=== PATIENT | female | born 1990 | race Caucasian/White ===

== ENCOUNTER 2018-03-16 20:26 | Emergency (ER) | payer OTHER ==
[~2018-03-16] VITALS: Ht 172.7 cm; Wt 124.7 kg
[2018-03-16] MEDS ORDERED: LACTATED RINGERS 1,000 ML IV ONE (20:46)
[2018-03-16] MEDS ORDERED: ONDANSETRON 4 MG/2 ML (SDV) Z0FRAN IVP ONE (21:00)
[2018-03-16] MEDS ORDERED: HYOSCYAMINE 0.125 MG (LEVSIN) TAB PO ONE (21:00)
[2018-03-16 21:14] LABS: BILIRUBIN,URINE NEGATIVE (NEGATIVE); CLARITY,URINE CLEAR; COLOR,URINE YELLOW; GLUCOSE, URINE (UA) NEGATIVE (NEGATIVE); KETONES,URINE 1+ (NEGATIVE); LEUKOCYTE ESTERASE ,URINE 1+ (NEGATIVE); NITRITE,URINE NEGATIVE (NEGATIVE); PH,URINE 5 (5-9); PROTEIN,URINE 1+ (NEGATIVE); UROBILINOGEN,URINE NORMAL (NORMAL)
[2018-03-16 21:20] LABS: BASOPHILS % (AUTO) 0 % (0-10); EOSINOPHILS # (AUTO) 0.1 10^3/uL (0.0-0.3); EOSINOPHILS % (AUTO) 1 % (0-10); HEMATOCRIT 39 % (35-52); HEMOGLOBIN 13.3 G/DL (11.5-16.0); LYMPHOCYTES # (AUTO) 3.2 X 10^3 (1.0-4.0); LYMPHOCYTES % (AUTO) 38 % (12-44); MEAN CORPUSCULAR HEMOGLOBIN 31 PG (25-34); MEAN CORPUSCULAR HGB CONC 34 G/DL (32-36); MEAN CORPUSCULAR VOLUME 92 FL (80-99); MEAN PLATELET VOLUME 10.2 FL (7.4-10.4); MONOCYTES # (AUTO) 0.6 X 10^3 (0.0-1.0); MONOCYTES % (AUTO) 7 % (0-12); NEUTROPHILS # (AUTO) 4.4 X 10^3 (1.8-7.8); NEUTROPHILS % (AUTO) 53 % (42-75); PLATELET COUNT 317 10^3/uL (130-400); RED BLOOD COUNT 4.23 10^6/uL (4.35-5.85); RED CELL DISTRIBUTION WIDTH 14.4 % (10.0-14.5); WHITE BLOOD COUNT 8.3 10^3/uL (4.3-11.0)
[2018-03-16 21:22] LABS: RBC,URINE RARE /HPF; WBC,URINE RARE /HPF
[2018-03-16 21:37] LABS: ALANINE AMINOTRANSFERASE 30 U/L (0-55); ALBUMIN 4.3 GM/DL (3.2-4.5); ALKALINE PHOSPHATASE 103 U/L (40-136); BILIRUBIN,TOTAL 0.7 MG/DL (0.1-1.0); BUN/CREATININE RATIO 13; CALCIUM 9.4 MG/DL (8.5-10.1); CARBON DIOXIDE 22 MMOL/L (21-32); CHLORIDE 107 MMOL/L (98-107); CREATININE SERUM 0.79 MG/DL (0.60-1.30); GFR ESTIMATED > 60; GLUCOSE 81 MG/DL (70-105); POTASSIUM 3.5 MMOL/L (3.6-5.0); SODIUM 140 MMOL/L (135-145); TOTAL PROTEIN 7.7 GM/DL (6.4-8.2)
--- OUTSIDE RECORDS SUMMARY | 2018-03-16 22:15 | XMS REPORT | Continuity of Care Document ---
Author Author [facility] Organization [facility] Address Unknown Phone Unavailable Allergies There is no data. Medications There is no data. Problems There is no data. Procedures There is no data. Results Test Result Range TSH - 01/18/18 15:28 TSH 0.90 mIU/L NRG CULTURE, GENITAL - 03/01/18 19:00 CULTURE, GENITAL SEE NOTE NRG Encounters ACCT No. Visit Date/Time Discharge Status Pt. Type Provider Facility Loc./Unit Complaint [id number] 11/27/2013 15:01:43 11/27/2013 23:59:59 CLS Outpatient Dion Guevara [id number] 03/01/2018 18:00:00 03/01/2018 23:59:59 CLS Outpatient PACO NAIK LAC [id number] 03/01/2018 18:00:00 Document Registration [id number] 01/18/2018 15:00:00 Document Registration
--- NOTE | 2018-03-16 22:25 | ED GI ---
General Chief Complaint: Abdominal/GI Problems Stated Complaint: ABD ISSUES Nursing Triage Note: pt presents to er with complaint of abd pain and diarrhea. pt states she had a small bowel resection last year due to blood clot. Sepsis Screen: No Definite Risk Source of Information: Patient Exam Limitations: No Limitations History of Present Illness Date Seen by Provider: Mar 16, 2018 Time Seen by Provider: 20:30 Initial Comments This 27-year-old woman presents to the emergency room with concerns about 3 days of diarrhea and central abdominal pain she has nausea without vomiting. She denies any blood in her urine. 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 She has factor V Leiden and is now on Eliquis. She also takes Viberzi for irritable bowel syndrome. Despite taking this medication as well as Imodium and dicyclomine she continues to have symptoms. She denies fever. Her abdominal pain is crampy in nature. Allergies and Home Medications Allergies Coded Allergies: Sulfa (Sulfonamide Antibiotics) (Verified Allergy, Unknown, 03/16/18) Home Medications Hyoscyamine Sulfate 0.125 Mg Tab.subl, 1-2 MG SL Q4H PRN for CRAMPS For diarrhea or abdominal cramping Prescribed by: SUDEEP CARMEN on 03/16/182250 Ondansetron 4 Mg Tab.rapdis, 4 MG SL Q4H PRN for NAUSEA/VOMITING-1ST LINE Prescribed by: SUDEEP CARMEN on 03/16/182250 Patient Home Medication List Home Medication List Reviewed: Yes Review of Systems Constitutional: no symptoms reported EENTM: No Symptoms Reported Respiratory: No Symptoms Reported Cardiovascular: No Symptoms Reported Gastrointestinal: See HPI Genitourinary: No Symptoms Reported Musculoskeletal: no symptoms reported Skin: no symptoms reported Psychiatric/Neurological: No Symptoms Reported Endocrine: No Symptoms Reported Hematologic/Lymphatic: No Symptoms Reported Past Wqpstwe-Tpycns-Xfbant Hx Past Med/Social Hx: Reviewed and Corrections made Patient Social History Alcohol Use: Denies Use Recreational Drug Use: No Smoking Status: Never a Smoker Recent Foreign Travel: No Contact w/Someone Who Travel: No Recent Infectious Disease Expo: No Recent Hopitalizations: No Immunizations Up To Date Tetanus Booster (TDap): Unknown Seasonal Allergies Seasonal Allergies: No Past Medical History Surgeries: Yes (small bowel resection) Abdominal Respiratory: No Cardiac: Yes (Factor V Leiden causing mesenteric embolism, now anticoagulated) Neurological: No : No Reproductive Disorders: No Genitourinary: No Gastrointestinal: Yes (small intestine blood clot) Irritable Bowel Musculoskeletal: No Endocrine: No HEENT: No Cancer: No Psychosocial: Yes Anxiety, Depression Integumentary: No Blood Disorders: Yes (Factor V Leiden) Adverse Reaction/Blood Tranf: No Physical Exam Vital Signs Capillary Refill : Less Than 3 Seconds Height/Weight/BMI Height: 5'8.00" Weight: 275lbs. oz. 124.531051po; BMI Method:Stated General Appearance: WD/WN, no apparent distress HEENT: PERRL/EOMI, normal ENT inspection, pharynx normal Neck: normal inspection Respiratory: lungs clear, normal breath sounds, no respiratory distress, no accessory muscle use Cardiovascular: regular rate, rhythm, no edema, no murmur Gastrointestinal: normal bowel sounds, soft, tenderness (Mild central abdominal tenderness) Extremities: normal inspection, no pedal edema Neurologic/Psychiatric: rn anesthetist II-XII nml as tested, no motor/sensory deficits, alert, normal mood/affect, oriented x 3 Skin: normal color, warm/dry Progress/Results/Core Measures Results/Orders Lab Results Laboratory Tests Test 03/16/18 21:00 Range/Units White Blood Count 8.3 4.3-11.0 10^3/uL Red Blood Count 4.23 L 4.35-5.85 10^6/uL Hemoglobin 13.3 11.5-16.0 G/DL Hematocrit 39 35-52 % Mean Corpuscular Volume 92 80-99 FL Mean Corpuscular Hemoglobin 31 25-34 PG Mean Corpuscular Hemoglobin Concent 34 32-36 G/DL Red Cell Distribution Width 14.4 10.0-14.5 % Platelet Count 317 130-400 10^3/uL Mean Platelet Volume 10.2 7.4-10.4 FL Neutrophils (%) (Auto) 53 42-75 % Lymphocytes (%) (Auto) 38 12-44 % Monocytes (%) (Auto) 7 0-12 % Eosinophils (%) (Auto) 1 0-10 % Basophils (%) (Auto) 0 0-10 % Neutrophils # (Auto) 4.4 1.8-7.8 X 10^3 Lymphocytes # (Auto) 3.2 1.0-4.0 X 10^3 Monocytes # (Auto) 0.6 0.0-1.0 X 10^3 Eosinophils # (Auto) 0.1 0.0-0.3 10^3/uL Basophils # (Auto) 0.0 0.0-0.1 10^3/uL Urine Color YELLOW Urine Clarity CLEAR Urine pH 5 5-9 Urine Specific [place] 1.030 H 1.016-1.022 Urine Protein 1+ H NEGATIVE Urine Glucose (UA) NEGATIVE NEGATIVE Urine Ketones 1+ H NEGATIVE Urine Nitrite NEGATIVE NEGATIVE Urine Bilirubin NEGATIVE NEGATIVE Urine Urobilinogen NORMAL NORMAL MG/DL Urine Leukocyte Esterase 1+ H NEGATIVE Urine RBC (Auto) 1+ H NEGATIVE Urine RBC RARE /HPF Urine WBC RARE /HPF Urine Squamous Epithelial Cells 2-5 /HPF Urine Crystals NONE /LPF Urine Bacteria NONE /HPF Urine Casts NONE /LPF Urine Mucus NEGATIVE /LPF Urine Culture Indicated NO Sodium Level 140 135-145 MMOL/L Potassium Level 3.5 L 3.6-5.0 MMOL/L Chloride Level 107 98-107 MMOL/L Carbon Dioxide Level 22 21-32 MMOL/L Anion Gap 11 5-14 MMOL/L Blood Urea Nitrogen 10 7-18 MG/DL Creatinine 0.79 0.60-1.30 MG/DL Estimat Glomerular Filtration Rate > 60 BUN/Creatinine Ratio 13 Glucose Level 81 70-105 MG/DL Calcium Level 9.4 8.5-10.1 MG/DL Magnesium Level 2.0 1.8-2.4 MG/DL Total Bilirubin 0.7 0.1-1.0 MG/DL Aspartate Amino Transf (AST/SGOT) 26 5-34 U/L Alanine Aminotransferase (ALT/SGPT) 30 0-55 U/L Alkaline Phosphatase 103 40-136 U/L Total Protein 7.7 6.4-8.2 GM/DL Albumin 4.3 3.2-4.5 GM/DL Serum Test, Qualitative NEGATIVE NEGATIVE My Orders Orders - SUDEEP MAY MD Ua Culture If Indicated (03/16/18 20:29) Cbc With Automated Diff (03/16/18 20:46) Comprehensive Metabolic Panel (03/16/18 20:46) Hcg,Qualitative Serum (03/16/18 20:46) Magnesium (03/16/18 20:46) Saline Lock/Iv-Start (03/16/18 20:46) Saline Lock/Iv-Start (03/16/18 20:46) Saline Lock/Iv-Start (03/16/18 20:46) Lactated Ringers (Lr 1000 Ml Iv Solution (03/16/18 20:46) Hyoscyamine Sl Tablet (Levsin Sl Tablet) (03/16/18 21:00) Ondansetron Injection (Zofran Injectio (03/16/18 21:00) Iv Push Iron Bender Ed (03/17/18 ) Iv Push Iron Bender Ed (03/16/18 ) Medications Given in ED Vital Signs/I&O Blood Pressure Mean: 80 Progress Progress Note : Progress Note Labs were fairly unremarkable. Patient received a liter of lactated Ringer, Zofran, and Levsin. She did have improvement in symptoms. Prescriptions were provided. Patient was dismissed in stable condition. Departure Impression Primary Impression: Diarrhea Qualified Codes: R19.7 - Diarrhea, unspecified Additional Impression: Nausea Disposition: 01 HOME, SELF-CARE Condition: Improved Departure-Patient Inst. Decision time for Depature: 22:15 Referrals: LAKHWINDER POSADAS APRN (PCP/Family) Primary Care Physician Patient Instructions: Diarrhea in Adolescents and Adults Add. Discharge Instructions: Drink plenty of clear liquids. Observe a clear liquid diet for the next 24 hours which would include water, Pedialyte, sports drinks, broth, Jell-O, etc. Then gradually advance your diet with small quantities of bland food as tolerated. You may take Zofran (ondansetron) as prescribed for nausea and vomiting. You may try Levsin for abdominal cramping and diarrhea as prescribed. Follow-up with your primary care provider by phone tomorrow to arrange follow- up. Return to emergency room if symptoms worsen. All discharge instructions reviewed with patient and/or family. Voiced understanding. Scripts Ondansetron (Zofran Odt) 4 Mg Tab.rapdis 4 MG SL Q4H PRN for NAUSEA/VOMITING-1ST LINE, #10 TAB Prov: SUDEEP MAY MD 03/16/18 Hyoscyamine Sulfate (Levsin-Sl) 0.125 Mg Tab.subl 1-2 MG SL Q4H PRN for CRAMPS, #10 TAB For diarrhea or abdominal cramping Prov: SUDEEP MAY MD 03/16/18 SUDEEP MAY MD Mar 16, 2018 22:25
[2018-03-16] MEDS ORDERED: HYOS0.1283 SL (22:51)
[2018-03-16] MEDS ORDERED: ONDA4TAB8 SL (22:51)
[2018-03-16 22:54] VITALS: BP 120/60
== END 2018-03-16 23:00 | disposition home or self-care (01) ==
LOC: EDUNIT# 20:26 → ER 20:28
DX: R19.7 Diarrhea, unspecified (principal); R11.0 Nausea; Z88.2 Allergy status to sulfonamides; Z90.49 Acquired absence of other specified parts of digestive tract
CPT/HCPCS: 36415; 80053; 81000; 83735; 84703; 85025; 96361; 96374

== ENCOUNTER 2018-06-30 00:47 | Emergency (ER) | payer OTHER ==
[~2018-06-30] VITALS: Ht 172.7 cm; Wt 124.7 kg
[~2018-06-30 00:47] MED LIST: HYOS0.1283 SL; ONDA4TAB8 SL
--- OUTSIDE RECORDS SUMMARY | 2018-06-30 00:54 | XMS REPORT ---
Author Author LAKHWINDER POSADAS Organization [facility] Address [address] [place] [address] Care Team Providers Care Iridologist Name Role Phone LAKHWINDER POSADAS Unavailable PROBLEMS Type Condition ICD9-CM Code [id number] Code Onset Dates Condition Status SNOMED Code Problem Factor V Leiden D68.51 Active 990532800 Problem Intestinal malabsorption, unspecified K90.9 Active 09751984 Problem Irregular menstrual bleeding N92.6 Active 81555543 Problem Recurrent major depressive disorder, in full remission F33.42 Active 942894760 Problem Factor V Leiden mutation D68.51 Active 769751639 Problem 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 770633899 Problem Irritable bowel syndrome with diarrhea K58.0 Active 754485625 ALLERGIES No Information ENCOUNTERS Encounter Location Date Diagnosis [facility] [address] [id number] [place] [address] Jun Irritable bowel syndrome with diarrhea K58.0 [facility] [address] [id number] [place] [address] Jun Irritable bowel syndrome with diarrhea K58.0 [facility] [address] [id number] [place] [address] Jun [facility] [address] [id number] [place] [address] Jun Irritable bowel syndrome with diarrhea K58.0 [facility] [address] [id number] [place] [address] Jun [facility] TechONS [address] [id number] [place] [address] May Acute nasopharyngitis J00 ; Encounter for other contraceptive management Z30.8 ; Encounter for Depo-Provera contraception Z30.42 and BMI 45.0- 49.9, adult Z68.42 [facility] [place] [address] [id number] [place] [id number] Apr, [facility] [place] [address] [id number] [place] [address] Apr [facility] [place] [address] [id number] [place] [address] Apr Factor V Leiden D68.51 [facility] [place] [address] [id number] [place] [address] 06 Apr Irritable bowel syndrome with diarrhea K58.0 ; Nausea R11.0 ; 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 ; Irregular menstrual bleeding N92.6 and BMI 45.0- 49.9, adult Z68.42 [facility]ENTERLex[facility] [place] [address] [id number] [place] [address] 27 Feb Well woman exam with routine gynecological exam Z01.419 ; Screening for STDs (sexually transmitted diseases) Z11.3 ; BMI 45.0-49.9, adult Z68.42 and Vaginal itching N89.8 [facility] [place] [address] [id number] [place] [address] 19 Feb control counseling Z30.09 and BMI 45.0-49.9, adult Z68.42 [facility]ENTERLex[facility] [place] [address] [id number] [place] [address] 13 Feb [facility]ENTERLex[facility] [place] [address] [id number] [place] [address] 12 Feb [facility]ENTERPressMatrixABAR[facility] [address] [id number] [place] [address] 07 Feb [facility]ENTER[facility] [place] [address] [id number] [place] [address] January Recurrent major depressive disorder, in full remission F33.42 ; Nausea R11.0 ; Occipital lymphadenopathy R59.0 and BMI 45.0-49.9, adult Z68.42 [facility]ENTER[facility] [place] [address] [id number] [place] [address] January Irritable bowel syndrome with diarrhea K58.0 [facility] [place] [address] [id number] [place] [address] January [facility] [place] [address] [id number] [place] [address] January Irritable bowel syndrome with diarrhea K58.0 ; Factor V Leiden D68.51 ; Perirectal skin irritation K62.89 ; Recurrent major depressive disorder, in full remission F33.42 and BMI 45.0-49.9, adult Z68.42 IMMUNIZATIONS No Known Immunizations SOCIAL HISTORY Never Assessed REASON FOR VISIT refill PLAN OF CARE VITAL SIGNS MEDICATIONS Medication Instructions Dosage Frequency Start Date End Date Duration Status Viberzi 75 MG Orally Twice a day 1 tablet with food 12h January, 7 days Active RESULTS No Results PROCEDURES No Known procedures INSTRUCTIONS MEDICATIONS ADMINISTERED No Known Medications MEDICAL (GENERAL) HISTORY Type Description Date Medical History depression Medical History short bowel Medical History insomnia Surgical History small bowel resection X 2 2017 Hospitalization History surgery Hospitalization History Rectal bleeding
--- OUTSIDE RECORDS SUMMARY | 2018-06-30 00:54 | XMS REPORT ---
Author 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 542665635 Problem Irritable bowel syndrome with diarrhea K58.0 Active 006703589 ALLERGIES No Information ENCOUNTERS Encounter Location Date Diagnosis [facility]Sharklet TechnologiesAB[facility] [address] [id number] [place] [address] Jun [facility]ENTERSharklet TechnologiesABARCA [address] [id number] [place] [address] May Acute nasopharyngitis J00 ; Encounter for other contraceptive management Z30.8 ; Encounter for Depo-Provera contraception Z30.42 and BMI 45.0- 49.9, adult Z68.42 [facility] [address] [facility] [id number] [place] [address] Apr, [facility]ITALRASILIENT SYSTEMSONS [address] [id number] [place] [address] Apr [facility]ITALElectraTherm [place] [address] [id number] [place] [address] Apr Factor V Leiden D68.51 [facility] [address] [id number] [place] [address] Apr Irritable bowel syndrome with diarrhea K58.0 ; Nausea R11.0 ; 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 ; Irregular menstrual bleeding N92.6 and BMI 45.0- 49.9, adult Z68.42 [facility]ITALRASIL[facility] SYSTEMSONS [employer]ern[employer]Data [address] [id number] [place] [address] 27 Feb Well woman exam with routine gynecological exam Z01.419 ; Screening for STDs (sexually transmitted diseases) Z11.3 ; BMI 45.0-49.9, adult Z68.42 and Vaginal itching N89.8 [facility] CENTERSharklet TechnologiesABARCA Pern[address] [id number] [place] [address] 19 Feb control counseling Z30.09 and BMI 45.0-49.9, adult Z68.42 [facility] CENTERSharklet TechnologiesABARCA Pern[address] [id number] [place] [address] 13 Feb [facility]ITALRASIL[facility] SYSTEMSONS [address] [id number] [place] [address] 12 Feb [facility] CENTERSharklet TechnologiesABARCA [address] [id number] [place] [address] Feb [facility]OSPITALRASIL[facility] SYSTEMSONS [address] [id number] [place] [address] January Recurrent major depressive disorder, in full remission F33.42 ; Nausea R11.0 ; Occipital lymphadenopathy R59.0 and BMI 45.0-49.9, adult Z68.42 [facility]ITALRASIL[facility] SYSTEMSONS [employer] [address] [id number] [place] [address] January Irritable bowel syndrome with diarrhea K58.0 [facility]ENTERSharklet TechnologiesABARCA [address] [id number] [place] [address] January [facility] SYSTEMSON[facility] [address] [id number] [place] [address] January Irritable bowel syndrome with diarrhea K58.0 ; Factor V Leiden D68.51 ; Perirectal skin irritation K62.89 ; Recurrent major depressive disorder, in full remission F33.42 and BMI 45.0-49.9, adult Z68.42 IMMUNIZATIONS No Known Immunizations SOCIAL HISTORY Never Assessed REASON FOR VISIT Refill request PLAN OF CARE VITAL SIGNS MEDICATIONS Medication Instructions Dosage Frequency Start Date End Date Duration Status Citalopram Hydrobromide 40 mg Orally Once a day 1 tablet 24h 30 Active Trazodone HCl 50 mg Orally Once a day 1 tablet at bedtime 24h 30 Active RESULTS No Results PROCEDURES No Known procedures INSTRUCTIONS MEDICATIONS ADMINISTERED No Known Medications MEDICAL (GENERAL) HISTORY Type Description Date Medical History depression Medical History short bowel Medical History insomnia Surgical History small bowel resection X 2 2017 Hospitalization History surgery Hospitalization History Rectal bleeding
--- OUTSIDE RECORDS SUMMARY | 2018-06-30 00:54 | XMS REPORT ---
Author Author LAKHWINDER POSADAS Organization [facility] Address [address] [place] [address] Care Team Providers Care Occupancy Specialist Name Role Phone LAKHWINDER POSADAS Unavailable PROBLEMS Type Condition ICD9-CM Code [id number] Code Onset Dates Condition Status SNOMED Code Problem Factor V Leiden D68.51 Active 380407696 Problem Intestinal malabsorption, unspecified K90.9 Active 86037670 Problem Irregular menstrual bleeding N92.6 Active 11682131 Problem Recurrent major depressive disorder, in full remission F33.42 Active 435230865 Problem Factor V Leiden mutation D68.51 Active 536723296 Problem 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 830756923 Problem Irritable bowel syndrome with diarrhea K58.0 Active 535040043 ALLERGIES No Information ENCOUNTERS Encounter Location Date Diagnosis [facility] [address] [id number] [place] [address] Jun Irritable bowel syndrome with diarrhea K58.0 [facility] [place] [address] [id number] [place] [address] Jun [facility] [place] [address] [id number] [place] [address] Jun Irritable bowel syndrome with diarrhea K58.0 [facility]iSyndicaAB[facility] [address] [id number] [place] [address] Jun [facility]icaAB[facility] [address] [id number] [place] [address] May Acute nasopharyngitis J00 ; Encounter for other contraceptive management Z30.8 ; Encounter for Depo-Provera contraception Z30.42 and BMI 45.0- 49.9, adult Z68.42 [facility] [address] [facility] [id number] [place] [id number] Apr, [facility] [address] [id number] [place] [address] Apr [facility]ITALAble[facility] [place] [address] [id number] [place] [address] Apr Factor V Leiden D68.51 [facility]ALSEK [place] [address] [id number] [place] [address] Apr Irritable bowel syndrome with diarrhea K58.0 ; Nausea R11.0 ; 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 ; Irregular menstrual bleeding N92.6 and BMI 45.0- 49.9, adult Z68.42 [facility]PITALReduce DataK [place] [address] [id number] [place] [address] 27 Feb Well woman exam with routine gynecological exam Z01.419 ; Screening for STDs (sexually transmitted diseases) Z11.3 ; BMI 45.0-49.9, adult Z68.42 and Vaginal itching N89.8 [facility]ALSE[facility] [place] [address] [id number] [place] [address] 19 Feb control counseling Z30.09 and BMI 45.0-49.9, adult Z68.42 [facility]OSPITALReduce DataLexx [place] [address] [id number] [place] [address] 13 Feb [facility]ITALGranifyONS [address] [id number] [place] [address] Feb [facility] [place] [address] [id number] [place] [address] Feb [facility]PITALAble[facility] [place] [address] [id number] [place] [address] January Recurrent major depressive disorder, in full remission F33.42 ; Nausea R11.0 ; Occipital lymphadenopathy R59.0 and BMI 45.0-49.9, adult Z68.42 [facility]OSPITALReduce DataK [place] [address] [id number] [place] [address] January Irritable bowel syndrome with diarrhea K58.0 [facility]ALSE[facility] [place] [address] [id number] [place] [address] January [facility]OSPITALSEShenick Network Systems [place] [address] [id number] [place] [address] January Irritable bowel syndrome with diarrhea K58.0 ; Factor V Leiden D68.51 ; Perirectal skin irritation K62.89 ; Recurrent major depressive disorder, in full remission F33.42 and BMI 45.0-49.9, adult Z68.42 IMMUNIZATIONS No Known Immunizations SOCIAL HISTORY Never Assessed REASON FOR VISIT Refill Request PLAN OF CARE VITAL SIGNS MEDICATIONS Unknown Medications RESULTS No Results PROCEDURES No Known procedures INSTRUCTIONS MEDICATIONS ADMINISTERED No Known Medications MEDICAL (GENERAL) HISTORY Type Description Date Medical History depression Medical History short bowel Medical History insomnia Surgical History small bowel resection X 2 2017 Hospitalization History surgery Hospitalization History Rectal bleeding
--- OUTSIDE RECORDS SUMMARY | 2018-06-30 00:54 | XMS REPORT ---
Author Author LAKHWINDER POSADAS Organization [facility] Address [address] [place] [address] Care Team Providers Care Appraiser Auditor Name Role Phone LAKHWINDER POSADAS Unavailable PROBLEMS Type Condition ICD9-CM Code DLR93-AL Code Onset Dates Condition Status SNOMED Code Problem Factor V Leiden D68.51 Active 892346561 Problem Intestinal malabsorption, unspecified K90.9 Active 84278990 Problem Irregular menstrual bleeding N92.6 Active 77700858 Problem Recurrent major depressive disorder, in full remission F33.42 Active 335932151 Problem Factor V Leiden mutation D68.51 Active 791797410 Problem 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 [address] [id number] [place] [address] Jun [facility] [address] [id number] [place] [address] Jun Irritable bowel syndrome with diarrhea K58.0 [facility] [address] [id number] [place] [address] Jun [facility] [address] [id number] [place] [address] May Acute nasopharyngitis J00 ; Encounter for other contraceptive management Z30.8 ; Encounter for Depo-Provera contraception Z30.42 and BMI 45.0- 49.9, adult Z68.42 [facility] [address] [facility] [id number] [place] [id number] Apr, [facility] [address] [id number] [place] [address] Apr [email or web address] [address] [id number] [place] [address] Apr Factor V Leiden D68.51 [facility] [address] [id number] [place] [address] Apr Irritable bowel syndrome with diarrhea K58.0 ; Nausea R11.0 ; 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 ; Irregular menstrual bleeding N92.6 and BMI 45.0- 49.9, adult Z68.42 [facility] [address] [id number] [place] [address] 27 Feb Well woman exam with routine gynecological exam Z01.419 ; Screening for STDs (sexually transmitted diseases) Z11.3 ; BMI 45.0-49.9, adult Z68.42 and Vaginal itching N89.8 [facility] [address] [id number] [place] [address] 19 Feb control counseling Z30.09 and BMI 45.0-49.9, adult Z68.42 [facility]ineLex[facility] [address] [id number] [place] [address] 13 Feb [facility] [address] [id number] [place] [address] Feb [email or web address] [address] [id number] [place] [address] Feb [email or web address] [address] [id number] [place] [address] January Recurrent major depressive disorder, in full remission F33.42 ; Nausea R11.0 ; Occipital lymphadenopathy R59.0 and BMI 45.0-49.9, adult Z68.42 [facility] [address] [id number] [place] [address] January Irritable bowel syndrome with diarrhea K58.0 [facility] [address] [id number] [place] [address] January [facility] [address] [id number] [place] [address] January Irritable bowel syndrome with diarrhea K58.0 ; Factor V Leiden D68.51 ; Perirectal skin irritation K62.89 ; Recurrent major depressive disorder, in full remission F33.42 and BMI 45.0-49.9, adult Z68.42 IMMUNIZATIONS No Known Immunizations SOCIAL HISTORY Never Assessed REASON FOR VISIT Viberzi refill PLAN OF CARE VITAL SIGNS MEDICATIONS Medication Instructions Dosage Frequency Start Date End Date Duration Status Viberzi 75 MG Orally Twice a day 1 tablet with food 12h January, Jun, 7 days Active RESULTS No Results PROCEDURES No Known procedures INSTRUCTIONS MEDICATIONS ADMINISTERED No Known Medications MEDICAL (GENERAL) HISTORY Type Description Date Medical History depression Medical History short bowel Medical History insomnia Surgical History small bowel resection X 2 2017 Hospitalization History surgery Hospitalization History Rectal bleeding
--- OUTSIDE RECORDS SUMMARY | 2018-06-30 00:55 | XMS REPORT ---
Author Author LAKHWINDER POSADAS [facility] Address [address] [place] [address] Care Team Providers Care Cane Flume Watchman Name Role Phone LAKHWINDER POSADAS Unavailable PROBLEMS Type Condition ICD9-CM Code JIO71-VQ Code Onset Dates Condition Status SNOMED Code Problem Factor V Leiden D68.51 Active 747261282 Problem Intestinal malabsorption, unspecified K90.9 Active 67392012 Problem Irregular menstrual bleeding N92.6 Active 10927801 Problem Recurrent major depressive disorder, in full remission F33.42 Active 904522274 Problem Factor V Leiden mutation D68.51 Active 190647017 Problem 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 857096622 Problem Irritable bowel syndrome with diarrhea K58.0 Active 837982194 ALLERGIES No Information ENCOUNTERS Encounter Location Date Diagnosis [facility] [address] [id number] [place] [address] Apr [facility] [address] [place], [place] [address]E DR [id number] [place] [address] Apr Factor V Leiden D68.51 [facility] [address] [id number] [place] [address] Apr Irritable bowel syndrome with diarrhea K58.0 ; Nausea R11.0 ; 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 ; Irregular menstrual bleeding N92.6 and BMI 45.0- 49.9, adult Z68.42 [facility] [address] [id number] [place] [address] 27 Feb Well woman exam with routine gynecological exam Z01.419 ; Screening for STDs (sexually transmitted diseases) Z11.3 ; BMI 45.0-49.9, adult Z68.42 and Vaginal itching N89.8 [facility]ITALAWCC HoldingsABARCA [address] [id number] [place] [address] Feb control counseling Z30.09 and BMI 45.0-49.9, adult Z68.42 [facility] [employer] [address] [id number] [place] [address] Feb [facility]ITALSimulmediaLexx [facility] [address] [id number] [place] [address] Feb [facility] [address] [id number] [place] [address] Feb [facility]ITALSimulmediaLex[facility] [address] [id number] [place] [address] January Recurrent major depressive disorder, in full remission F33.42 ; Nausea R11.0 ; Occipital lymphadenopathy R59.0 and BMI 45.0-49.9, adult Z68.42 [facility]ITALSimulmediaLexx [address] [id number] [place] [address] January Irritable bowel syndrome with diarrhea K58.0 [facility] [address] [id number] [place] [address] January [facility]ITALSimulmediaLexx [facility] [address] [id number] [place] [address] January Irritable bowel syndrome with diarrhea K58.0 ; Factor V Leiden D68.51 ; Perirectal skin irritation K62.89 ; Recurrent major depressive disorder, in full remission F33.42 and BMI 45.0-49.9, adult Z68.42 IMMUNIZATIONS No Known Immunizations SOCIAL HISTORY Never Assessed REASON FOR VISIT Pals order ready for pick-up PLAN OF CARE VITAL SIGNS MEDICATIONS Unknown Medications RESULTS No Results PROCEDURES No Known procedures INSTRUCTIONS MEDICATIONS ADMINISTERED No Known Medications MEDICAL (GENERAL) HISTORY Type Description Date Medical History depression Medical History short bowel Medical History insomnia Surgical History small bowel resection X 2 2017 Hospitalization History surgery Hospitalization History Rectal bleeding
--- OUTSIDE RECORDS SUMMARY | 2018-06-30 00:55 | XMS REPORT ---
Author Author LAKHWINDER POSADAS [facility] Address [address] [place] [address] Care Team Providers Care Grinder Set Up Operator External Name Role Phone LAKHWINDER POSADAS Unavailable PROBLEMS Type Condition ICD9-CM Code OSB33-LQ Code Onset Dates Condition Status SNOMED Code Problem Factor V Leiden D68.51 Active 962067009 Problem Intestinal malabsorption, unspecified K90.9 Active 69352936 Problem Irregular menstrual bleeding N92.6 Active 15199041 Problem Recurrent major depressive disorder, in full remission F33.42 Active 477771119 Problem Factor V Leiden mutation D68.51 Active 839072138 Problem 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 051774384 Problem Irritable bowel syndrome with diarrhea K58.0 Active 240106609 ALLERGIES Substance Reaction Event Type Date Status Sulfa drugs Rash Non Drug Allergy Apr, Active ENCOUNTERS Encounter Location Date Diagnosis [facility] [address] [facility] [id number] [place] [address] Apr, [facility] [address] [id number] [place] [address] Apr [facility] [address] [id number] [place] [address] Apr Factor V Leiden D68.51 [facility] [address] [facility] [facility] [facility] [id number] [place] [address] Apr Irritable bowel syndrome with diarrhea K58.0 ; Nausea R11.0 ; 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 ; Irregular menstrual bleeding N92.6 and BMI 45.0- 49.9, adult Z68.42 [facility] [address] [id number] [place] [address] Feb Well woman exam with routine gynecological exam Z01.419 ; Screening for STDs (sexually transmitted diseases) Z11.3 ; BMI 45.0-49.9, adult Z68.42 and Vaginal itching N89.8 [facility] [employer] [id number] [place] [address] 19 Feb control counseling Z30.09 and BMI 45.0-49.9, adult Z68.[address] [facility] [address] [id number] [place] [address] 13 Feb [facility] [address] [id number] [place] [address] Feb [facility] [employer] [id number] [place] [address] Feb [facility] [address] [id number] [place] [address] January Recurrent major depressive disorder, in full remission F33.42 ; Nausea R11.0 ; Occipital lymphadenopathy R59.0 and BMI 45.0-49.9, adult Z68.42 [facility] [address] [id number] [place] [address] January Irritable bowel syndrome with diarrhea K58.0 [facility] [employer] [id number] [place] [address] January [facility] [address] [id number] [place] [address] January Irritable bowel syndrome with diarrhea K58.0 ; Factor V Leiden D68.51 ; Perirectal skin irritation K62.89 ; Recurrent major depressive disorder, in full remission F33.42 and BMI 45.0-49.9, adult Z68.42 IMMUNIZATIONS No Known Immunizations SOCIAL HISTORY Never Assessed REASON FOR VISIT C/o diarrhea, vomiting, nausea and dizziness, ongoing 2 weeks. , Pt states that within past two weeks she went to ER [facility] and received fluids due to dehydration. , Pt states that she has short bowel syndrome. SJ, RMA, Pt states that when she wipes she has some blood but no visible blood in the stool. SJ, RMA PLAN OF CARE Activity Details Follow Up prn Reason: VITAL SIGNS Height 66 in 2018-04-10 Weight 285.8 lbs 2018-04-10 Temperature 98.6 degrees Fahrenheit 2018-04-10 Heart Rate 84 bpm 2018-04-10 Respiratory Rate 18 2018-04-10 Oximetry 98 % 2018-04-10 BMI 46.12 kg/m2 2018-04-10 Blood pressure systolic 112 mmHg 2018-04-10 Blood pressure diastolic 74 mmHg 2018-04-10 MEDICATIONS Medication Instructions Dosage Frequency Start Date End Date Duration Status Nexium 20 mg Orally Once a day 1 capsule 24h Apr, 30 day(s) Active Viberzi 75 MG Orally Twice a day 1 tablet with food 12h January,January 90 days Active Ondansetron HCl 4 MG Orally TID PRN 1 tablet Apr, 10 days Active Eliquis 5 MG Orally 2 times a day 1 tablet 12h 90 days Active Trazodone HCl 50 MG Orally Once a day 1 tablet at bedtime 24h Active Ortho Micronor 0.35 MG Orally Once a day 1 tablet 24h Feb, 30 day(s) Active Citalopram Hydrobromide 40 MG Orally Once a day 1 tablet 24h Active RESULTS No Results PROCEDURES No Known procedures INSTRUCTIONS MEDICATIONS ADMINISTERED No Known Medications MEDICAL (GENERAL) HISTORY Type Description Date Medical History depression Medical History short bowel Medical History insomnia Surgical History small bowel resection X 2 2017 Hospitalization History surgery Hospitalization History Rectal bleeding
--- OUTSIDE RECORDS SUMMARY | 2018-06-30 00:55 | XMS REPORT ---
Author Author LAKHWINDER POSADAS [facility] Address [address] [place] [address] Care Team Providers Care Drilling And Production Superintendent Name Role Phone LAKHWINDER POSADAS Unavailable PROBLEMS Type Condition ICD9-CM Code UTF26-PW Code Onset Dates Condition Status SNOMED Code Problem Factor V Leiden D68.51 Active 993949399 Problem Intestinal malabsorption, unspecified K90.9 Active 84559638 Problem Irregular menstrual bleeding N92.6 Active 32446914 Problem Recurrent major depressive disorder, in full remission F33.42 Active 594925140 Problem Factor V Leiden mutation D68.51 Active 044684725 Problem 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 172510371 Problem Irritable bowel syndrome with diarrhea K58.0 Active 061857699 ALLERGIES No Information ENCOUNTERS Encounter Location Date Diagnosis [facility] [employer] [address] [id number] [place] [address] May Acute nasopharyngitis J00 ; Encounter for other contraceptive management Z30.8 ; Encounter for Depo-Provera contraception Z30.42 and BMI 45.0- 49.9, adult Z68.42 [facility] [address] [facility] [facility] [id number] [place] [address] Apr, [facility] [address] [id number] [place] [address] Apr [facility] [address] [id number] [place] [address] Apr Factor V Leiden D68.51 [facility] [employer] [address] [id number] [place] [address] Apr Irritable bowel syndrome with diarrhea K58.0 ; Nausea R11.0 ; 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 ; Irregular menstrual bleeding N92.6 and BMI 45.0- 49.9, adult Z68.42 [facility] [employer] [address] [id number] [place] [address] 27 Feb Well woman exam with routine gynecological exam Z01.419 ; Screening for STDs (sexually transmitted diseases) Z11.3 ; BMI 45.0-49.9, adult Z68.42 and Vaginal itching N89.8 [facility] [address] [id number] [place] [address] 19 Feb control counseling Z30.09 and BMI 45.0-49.9, adult Z68.42 [facility]AB[facility] [employer] [address] [id number] [place] [address] 13 Feb [facility]prise[facility] [employer] [id number] [place] [address] Feb [facility] [employer] [id number] [place] [address] Feb [facility] [employer] [address] [id number] [place] [address] January Recurrent major depressive disorder, in full remission F33.42 ; Nausea R11.0 ; Occipital lymphadenopathy R59.0 and BMI 45.0-49.9, adult Z68.42 [facility] [employer] [address] [id number] [place] [address] January Irritable bowel syndrome with diarrhea K58.0 [facility] [employer] [address] [id number] [place] [address] January [facility] [employer] [address] [id number] [place] [address] January Irritable bowel syndrome with diarrhea K58.0 ; Factor V Leiden D68.51 ; Perirectal skin irritation K62.89 ; Recurrent major depressive disorder, in full remission F33.42 and BMI 45.0-49.9, adult Z68.42 IMMUNIZATIONS No Known Immunizations SOCIAL HISTORY Never Assessed REASON FOR VISIT receipt of PALS PLAN OF CARE VITAL SIGNS MEDICATIONS No Known Medications RESULTS No Results PROCEDURES No Known procedures INSTRUCTIONS MEDICATIONS ADMINISTERED No Known Medications MEDICAL (GENERAL) HISTORY Type Description Date Medical History depression Medical History short bowel Medical History insomnia Surgical History small bowel resection X 2 2017 Hospitalization History surgery Hospitalization History Rectal bleeding
--- OUTSIDE RECORDS SUMMARY | 2018-06-30 00:55 | XMS REPORT ---
Author Author LAKHWINDER POSADAS [facility] Address [address] [place] [address] Care Team Providers Care Relations Director Name Role Phone LAKHWINDER POSADAS Unavailable PROBLEMS Type Condition ICD9-CM Code JEA02-RK Code Onset Dates Condition Status SNOMED Code Problem Factor V Leiden D68.51 Active 850840080 Problem Intestinal malabsorption, unspecified K90.9 Active 13377330 Problem Irregular menstrual bleeding N92.6 Active 04802971 Problem Recurrent major depressive disorder, in full remission F33.42 Active 514875766 Problem Factor V Leiden mutation D68.51 Active 629502923 Problem 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 677771434 Problem Irritable bowel syndrome with diarrhea K58.0 Active 887475083 ALLERGIES Substance Reaction Event Type Date Status Sulfa drugs Rash Non Drug Allergy Feb, Active ENCOUNTERS Encounter Location Date Diagnosis [facility] [address] [facility] [id number] [place] [id number] Apr, [facility] [address] [id number] [place] [address] Apr [facility] [address] [id number] [place] [address] Apr Factor V Leiden D68.51 [facility] [address] [facility] [id number] [place] [address] Apr Irritable bowel syndrome with diarrhea K58.0 ; Nausea R11.0 ; 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 ; Irregular menstrual bleeding N92.6 and BMI 45.0- 49.9, adult Z68.42 [facility] [address] [id number] [place] [address] Feb Well woman exam with routine gynecological exam Z01.419 ; Screening for STDs (sexually transmitted diseases) Z11.3 ; BMI 45.0-49.9, adult Z68.42 and Vaginal itching N89.8 [facility] [employer] [address] [id number] [place] [address] 19 Feb control counseling Z30.09 and BMI 45.0-49.9, adult Z68.42 [facility] [address] [id number] [place] [address] 13 Feb [facility] [address] [id number] [place] [address] Feb [facility] [address] [id number] [place] [address] Feb [facility] CENTERPeridrome CorporationLexx [facility] [employer] [id number] [place] [address] January Recurrent major depressive disorder, in full remission F33.42 ; Nausea R11.0 ; Occipital lymphadenopathy R59.0 and BMI 45.0-49.9, adult Z68.42 [facility] [employer] [address] [id number] [place] [address] January Irritable bowel syndrome with diarrhea K58.0 [facility] [employer] [address] [id number] [place] [address] January [facility] [employer] [id number] [place] [address] January Irritable bowel syndrome with diarrhea K58.0 ; Factor V Leiden D68.51 ; Perirectal skin irritation K62.89 ; Recurrent major depressive disorder, in full remission F33.42 and BMI 45.0-49.9, adult Z68.42 IMMUNIZATIONS No Known Immunizations SOCIAL HISTORY Never Assessed REASON FOR VISIT Annual physical (female), Pt has some itching, and discharge. X 4-5 day. PALLAVI Bustillos PLAN OF CARE Activity Details Follow Up 1 Year, Reason:Well Woman Exam Pending Test TRICHOMONAS (IN HOUSE) Pending Test BACTERIAL VAGINOSIS (IN HOUSE) Pending Test PAP REFLEX TO HPV IF ASCUS VITAL SIGNS Height 66 in 2018-03-01 Weight 280.3 lbs 2018-03-01 Temperature 99.2 degrees Fahrenheit 2018-03-01 Heart Rate 94 bpm 2018-03-01 Respiratory Rate 18 2018-03-01 Oximetry 98 % 2018-03-01 BMI 45.24 kg/m2 2018-03-01 Blood pressure systolic 110 mmHg 2018-03-01 Blood pressure diastolic 70 mmHg 2018-03-01 MEDICATIONS Medication Instructions Dosage Frequency Start Date End Date Duration Status Diflucan 150 MG Orally one time 1 tablet Feb, 1 dose Active Eliquis 5 MG Orally 2 times a day 1 tablet 12h 90 days Active Viberzi 75 MG Orally Twice a day 1 tablet with food 12h January,January 90 days Active Ortho Micronor 0.35 MG Orally Once a day 1 tablet 24h 19 Feb, 2018 30 day(s) Active Citalopram Hydrobromide 40 MG Orally Once a day 1 tablet 24h Active Trazodone HCl 50 MG Orally Once a day 1 tablet at bedtime 24h Active RESULTS No Results PROCEDURES Procedure Date Ordered Result Body Site CULTURE, BACTERIA, OTHER March 01, 2018 TRICHOMONAS ASSAY W/OPTIC March 01, 2018 No Charge March 01, 2018 Bacterial Vaginosis In House March 01, 2018 INSTRUCTIONS MEDICATIONS ADMINISTERED No Known Medications MEDICAL (GENERAL) HISTORY Type Description Date Medical History depression Medical History short bowel Medical History insomnia Surgical History small bowel resection X 2 2017 Hospitalization History surgery Hospitalization History Rectal bleeding
--- OUTSIDE RECORDS SUMMARY | 2018-06-30 00:55 | XMS REPORT ---
Author Author LAKHWINDER POSADAS [facility] Address [address] [place] [address] Care Team Providers Care Non Destructive Testing Inspector Name Role Phone LAKHWINDER POSADAS Unavailable PROBLEMS Type Condition ICD9-CM Code JKV33-CB Code Onset Dates Condition Status SNOMED Code Problem Factor V Leiden D68.51 Active 286415729 Problem Intestinal malabsorption, unspecified K90.9 Active 53235902 Problem Irregular menstrual bleeding N92.6 Active 38470813 Problem Recurrent major depressive disorder, in full remission F33.42 Active 495925908 Problem Factor V Leiden mutation D68.51 Active 797061869 Problem 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 124154408 Problem Irritable bowel syndrome with diarrhea K58.0 Active 813980941 ALLERGIES No Information ENCOUNTERS Encounter Location Date Diagnosis [facility] [address] [id number] [place] [address] Apr [facility] [address] [place], [place] [address]E DR [id number] [place] [address] Apr Factor V Leiden D68.51 [facility] [address] [id number] [place] [address] Apr Irritable bowel syndrome with diarrhea K58.0 ; Nausea R11.0 ; 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 ; Irregular menstrual bleeding N92.6 and BMI 45.0- 49.9, adult Z68.42 [facility] [address] [id number] [place] [address] 27 Feb Well woman exam with routine gynecological exam Z01.419 ; Screening for STDs (sexually transmitted diseases) Z11.3 ; BMI 45.0-49.9, adult Z68.42 and Vaginal itching N89.8 [facility]MD[facility] [address] [id number] [place] [address] Feb control counseling Z30.09 and BMI 45.0-49.9, adult Z68.42 [facility] m2p-labs [address] [id number] [place] [address] Feb [facility]ITALCHORDLexx [facility] [address] [id number] [place] [address] Feb [facility] m2p-labs [address] [id number] [place] [address] Feb [facility] m2p-labs [address] [id number] [place] [address] January Recurrent major depressive disorder, in full remission F33.42 ; Nausea R11.0 ; Occipital lymphadenopathy R59.0 and BMI 45.0-49.9, adult Z68.42 [facility]DLex[facility] m2p-labs [address] [id number] [place] [address] January Irritable bowel syndrome with diarrhea K58.0 [facility] m2p-labs [address] DR [id number] [place] [address] January [facility] m2p-l[address] [id number] [place] [address] January Irritable bowel syndrome with diarrhea K58.0 ; Factor V Leiden D68.51 ; Perirectal skin irritation K62.89 ; Recurrent major depressive disorder, in full remission F33.42 and BMI 45.0-49.9, adult Z68.42 IMMUNIZATIONS No Known Immunizations SOCIAL HISTORY Never Assessed REASON FOR VISIT PLAN OF CARE VITAL SIGNS MEDICATIONS Unknown Medications RESULTS No Results PROCEDURES No Known procedures INSTRUCTIONS MEDICATIONS ADMINISTERED No Known Medications MEDICAL (GENERAL) HISTORY Type Description Date Medical History depression Medical History short bowel Medical History insomnia Surgical History small bowel resection X 2 2017 Hospitalization History surgery Hospitalization History Rectal bleeding
--- OUTSIDE RECORDS SUMMARY | 2018-06-30 00:55 | XMS REPORT ---
Author Author LAKHWINDER POSADAS [facility] Address [address] [place] [address] Care Team Providers Care Optician Apprentice Name Role Phone LAKHWINDER POSADAS Unavailable PROBLEMS Type Condition ICD9-CM Code CRV89-HG Code Onset Dates Condition Status SNOMED Code Problem Factor V Leiden D68.51 Active 831235557 Problem Intestinal malabsorption, unspecified K90.9 Active 13887878 Problem Irregular menstrual bleeding N92.6 Active 13002564 Problem Recurrent major depressive disorder, in full remission F33.42 Active 023489808 Problem Factor V Leiden mutation D68.51 Active 417540248 Problem 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 [address] [id number] [place] [address] Apr [facility] [address] [place], [place] [address]E DR [id number] [place] [address] Apr Factor V Leiden D68.51 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 [address] [id number] [place] [address] 27 Feb Well woman exam with routine gynecological exam Z01.419 ; Screening for STDs (sexually transmitted diseases) Z11.3 ; BMI 45.0-49.9, adult Z68.[address] N89.[address] [facility]ITALInSpheroABAR[facility] [address] [id number] [place] [address] Feb control counseling Z30.09 and BMI 45.0-49.9, adult Z68.42 [facility] [employer] [address] [id number] [place] [address] Feb [facility]Aerin MedicalLexx [place] [address] [id number] [place] [address] [facility]OSPITALLexx [place] [employer] [address] [id number] [place] [address] Feb [facility]ITALAerin MedicalLexx [place] [employer] [address] [id number] [place] [address] January Recurrent major depressive disorder, in full remission F33.42 ; Nausea R11.0 ; Occipital lymphadenopathy R59.0 and BMI 45.0-49.9, adult Z68.42 [facility]ITALAerin MedicalLexx [address] [id number] [place] [address] January Irritable bowel syndrome with diarrhea K58.[address] [facility] [employer] [address] [id number] [place] [address] January [facility]in MedicalLexx [facility] [employer] [address] [id number] [place] [address] January Irritable bowel syndrome with diarrhea K58.0 [...]
--- OUTSIDE RECORDS SUMMARY | 2018-06-30 00:55 | XMS REPORT ---
Author Author LAKHWINDER POSADAS [facility] Address [address] [place] [address] Care Team Providers Care Adjunct Instructor Name Role Phone LAKHWINDER POSADAS Unavailable PROBLEMS Type Condition ICD9-CM Code HLP29-KT Code Onset Dates Condition Status SNOMED Code Problem Factor V Leiden D68.51 Active 586606870 Problem Intestinal malabsorption, unspecified K90.9 Active 96933804 Problem Irregular menstrual bleeding N92.6 Active 38597463 Problem Recurrent major depressive disorder, in full remission F33.42 Active 103663288 Problem Factor V Leiden mutation D68.51 Active 705911976 Problem 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 600898082 Problem Irritable bowel syndrome with diarrhea K58.0 Active 169267026 ALLERGIES Substance Reaction Event Type Date Status Sulfa drugs Rash Non Drug Allergy May, Active ENCOUNTERS Encounter Location Date Diagnosis [facility] [address] [id number] [place] [address] Jun [facility] [address] [id number] [place] [address] May Acute nasopharyngitis J00 ; Encounter for other contraceptive management Z30.8 ; Encounter for Depo-Provera contraception Z30.42 and BMI 45.0- 49.9, adult Z68.42 [facility] [address] 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 ; Irregular menstrual bleeding N92.6 and BMI 45.0- 49.9, adult Z68.42 [facility]PITALKiiLexx [place] [address] [id number] [place] [address] 27 Feb Well woman exam with routine gynecological exam Z01.419 ; Screening for STDs (sexually transmitted diseases) Z11.3 ; BMI 45.0-49.9, adult Z68.42 and Vaginal itching N89.8 [facility]OSPITALXVionicsONS [address] [id number] [place] [address] 19 Feb control counseling Z30.09 and BMI 45.0-49.9, adult Z68.42 [facility]ITALXVionicsONS [address] [id number] [place] [address] 13 Feb [facility] [address] [id number] [place] [address] Feb [facility]OSPITALXVionicsONS EnsendaE DR [id number] [place] [address] Feb [facility]PITALXVionicsONS EnsendaE [id number] [place] [address] January Recurrent major depressive disorder, in full remission F33.42 ; Nausea R11.0 ; Occipital lymphadenopathy R59.0 and BMI 45.0-49.9, adult Z68.42 [facility]OSPITALKiiLexx [place] [address] [id number] [place] [address] January Irritable bowel syndrome with diarrhea K58.0 [facility]ITALXVionicsONS [address] [id number] [place] [address] January [facility]ITALXVionicsONS [address]endaE DR [id number] [place] [address] January Irritable bowel syndrome with diarrhea K58.0 ; Factor V Leiden D68.51 ; Perirectal skin irritation K62.89 ; Recurrent major depressive disorder, in full remission F33.42 and BMI 45.0-49.9, adult Z68.42 IMMUNIZATIONS Vaccine Route Administration Date Status DEPO MEDROL 40 MG/ML IM Intramuscular May 29, 2018 Administered DEXAMETHASONE 4MG/ML (PER 1 MG) IM Intramuscular May 29, 2018 Administered DEPO PROVERA (150 MG/ML) IM Intramuscular May 29, 2018 Administered SOCIAL HISTORY Never Assessed REASON FOR VISIT loss of voice, running nose , sore throat x since last tuesday -- dirk suarez PLAN OF CARE Activity Details Follow Up 3 Months Reason:BC f/u VITAL SIGNS Height 66 in 2018-05-29 Weight 284.0 lbs 2018-05-29 Temperature 97.8 degrees Fahrenheit 2018-05-29 Heart Rate 86 bpm 2018-05-29 Respiratory Rate 22 2018-05-29 BMI 45.83 kg/m2 2018-05-29 Blood pressure systolic 130 mmHg 2018-05-29 Blood pressure diastolic 82 mmHg 2018-05-29 MEDICATIONS Medication Instructions Dosage Frequency Start Date End Date Duration Status Flonase 50 MCG/ACT Nasally Once a day 1 spray in each nostril 24h May, 30 day(s) Active Citalopram Hydrobromide 40 MG Orally Once a day 1 tablet 24h Active Ortho Micronor 0.35 MG Orally Once a day 1 tablet 24h Feb, 30 day(s) Active Depo-Provera 150 MG/ML Intramuscular every 12 weeks 1 ml May, May, 365 days Active Ondansetron HCl 4 MG Orally TID PRN 1 tablet Apr, 10 days Active Eliquis 5 mg Orally 2 times a day 1 tablet 12h Active Viberzi 75 MG Orally Twice a day 1 tablet with food 12h January,January 90 days Active Nexium 20 mg Orally Once a day 1 capsule 24h Apr, 30 day(s) Active Trazodone HCl 50 MG Orally Once a day 1 tablet at bedtime 24h Active RESULTS Name Result Date Reference Range TEST, URINE (IN HOUSE) RESULTS NEGATIVE Lot # [id number] Control + Exp date 11/2019 PROCEDURES Procedure Date Ordered Result Body Site URINE TEST May 29, 2018 THER/PROPH/DIAG INJ, SC/IM May 29, 2018 DEPO MEDROL 40 MG/ML May 29, 2018 DEPO PROVERA (150 MG/ML) May 29, 2018 DEXAMETHASONE 4MG/ML (PER 1 MG) May 29, 2018 INSTRUCTIONS MEDICATIONS ADMINISTERED No Known Medications MEDICAL (GENERAL) HISTORY Type Description Date Medical History depression Medical History short bowel Medical History insomnia Surgical History small bowel resection X 2 2017 Hospitalization History surgery Hospitalization History Rectal bleeding
--- OUTSIDE RECORDS SUMMARY | 2018-06-30 00:55 | XMS REPORT ---
Author Author [facility]AKHWINDER POSADAS [facility] Address [address] [place] [address] Care Team Providers Care Can Labeler Name Role Phone LAKHWINDER POSADAS Unavailable PROBLEMS Type Condition ICD9-CM Code LGC76-ZO Code Onset Dates Condition Status SNOMED Code Problem Factor V Leiden D68.51 Active 462339446 Problem Intestinal malabsorption, unspecified K90.9 Active 78354493 Problem Irregular menstrual bleeding N92.6 Active 86786126 Problem Recurrent major depressive disorder, in full remission F33.42 Active 010144442 Problem Factor V Leiden mutation D68.51 Active 926863532 Problem 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 ; Irregular menstrual bleeding N92.6 and BMI 45.0- 49.9, adult Z68.42 [facility] [address] [id number] [place] [address] Feb 2018 Well woman exam with routine gynecological exam Z01.419 ; Screening for STDs (sexually transmitted diseases) Z11.3 ; BMI 45.0-49.9, adult Z68.42 and Vaginal itching N89.8 [facility] [employer] [address] [id number] [place] [address] 19 Feb control counseling Z30.09 and BMI 45.0-49.9, adult Z68.42 [facility] [address] [id number] [place] [address] 13 Feb [facility] [address] [id number] [place] [address] Feb [facility] [employer] [address] [id number] [place] [address] Feb [facility] [address] [id number] [place] [address] January Recurrent major depressive disorder, in full remission F33.42 ; Nausea R11.0 ; Occipital lymphadenopathy R59.0 and BMI 45.0-49.9, adult Z68.42 [facility] [employer] [address] [id number] [place] [address] January Irritable bowel syndrome with diarrhea K58.0 [facility]ITALAnalizaLexx [facility] [employer] [address] [id number] [place] [address] January [facility] [employer] [address] [id number] [place] [address] January Irritable bowel syndrome with diarrhea K58.0 ; Factor V Leiden D68.51 ; Perirectal skin irritation K62.89 ; Recurrent major depressive disorder, in full remission F33.42 and BMI 45.0-49.9, adult Z68.42 IMMUNIZATIONS No Known Immunizations SOCIAL HISTORY Never Assessed REASON FOR VISIT PLAN OF CARE VITAL SIGNS MEDICATIONS Medication Instructions Dosage Frequency Start Date End Date Duration Status Eliquis 5 mg Orally 2 times a day 1 tablet 12h Active RESULTS No Results PROCEDURES No Known procedures INSTRUCTIONS MEDICATIONS ADMINISTERED No Known Medications MEDICAL (GENERAL) HISTORY Type Description Date Medical History depression Medical History short bowel Medical History insomnia Surgical History small bowel resection X 2 2017 Hospitalization History surgery Hospitalization History Rectal bleeding
--- OUTSIDE RECORDS SUMMARY | 2018-06-30 00:55 | XMS REPORT ---
Author Author [facility]ER [facility]AD[facility] [address] [place] [address] Care Team Providers Care Fibre Cement Moulder Name Role Phone LAKHWINDER POSADAS Unavailable PROBLEMS Type Condition ICD9-CM Code GRG94-YT Code Onset Dates Condition Status SNOMED Code Problem Factor V Leiden D68.51 Active 121766839 Problem Intestinal malabsorption, unspecified K90.9 Active 90339711 Problem Irregular menstrual bleeding N92.6 Active 28122974 Problem Recurrent major depressive disorder, in full remission F33.42 Active 839186868 Problem Factor V Leiden mutation D68.51 Active 901542765 Problem 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 243246587 Problem Irritable bowel syndrome with diarrhea K58.0 Active 473426910 ALLERGIES No Information ENCOUNTERS Encounter Location Date Diagnosis [facility] [address] [facility] [id number] [place] [phone] Apr, [facility] [address] [id number] [place] [address] Apr [address] [id number] [place] [address] Apr Factor V Leiden D68.51 [place] [address] [id number] [place] [address] Apr Irritable bowel syndrome with diarrhea K58.0 ; Nausea R11.0 ; 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 ; Irregular menstrual bleeding N92.6 and BMI 45.0- 49.9, adult Z68.42 [facility] [address] [id number] [place] [address] Feb 2018 Well woman exam with routine gynecological exam Z01.419 ; Screening for STDs (sexually transmitted diseases) Z11.3 ; BMI 45.0-49.9, adult Z68.42 and Vaginal itching N89.8 [facility] [employer] [address] [id number] [place] [address] 19 Feb control counseling Z30.09 and BMI 45.0-49.9, adult Z68.42 [facility] [address] [id number] [place] [address] 13 Feb [facility] [address] [id number] [place] [address] Feb [facility]EREcoTimberLexx ABARCA [employer] [address] [id number] [place] [address] Feb [facility] CENTEREcoTimberLexx [place] [address] [id number] [place] [address] January Recurrent major depressive disorder, in full remission F33.42 ; Nausea R11.0 ; Occipital lymphadenopathy R59.0 and BMI 45.0-49.9, adult Z68.42 [facility] [employer] [address] [id number] [place] [address] January Irritable bowel syndrome with diarrhea K58.0 [facility]ENTEREcoTimberLexx [facility] [employer] [address] [id number] [place] [address] January [facility] [employer] [address] [id number] [place] [address] January Irritable bowel syndrome with diarrhea K58.0 ; Factor V Leiden D68.51 ; Perirectal skin irritation K62.89 ; Recurrent major depressive disorder, in full remission F33.42 and BMI 45.0-49.9, adult Z68.42 IMMUNIZATIONS No Known Immunizations SOCIAL HISTORY Never Assessed REASON FOR VISIT Medication question PLAN OF CARE VITAL SIGNS MEDICATIONS Unknown Medications RESULTS No Results PROCEDURES No Known procedures INSTRUCTIONS MEDICATIONS ADMINISTERED No Known Medications MEDICAL (GENERAL) HISTORY Type Description Date Medical History depression Medical History short bowel Medical History insomnia Surgical History small bowel resection X 2 2017 Hospitalization History surgery Hospitalization History Rectal bleeding
--- OUTSIDE RECORDS SUMMARY | 2018-06-30 00:55 | XMS REPORT ---
Author Author LAKHWINDER POSADAS [facility] Address [address] [place] [address] Care Team Providers Care Ct Technician Name Role Phone LAKHWINDER POSADAS Unavailable PROBLEMS Type Condition ICD9-CM Code XQT31-LO Code Onset Dates Condition Status SNOMED Code Problem Factor V Leiden D68.51 Active 568647841 Problem Intestinal malabsorption, unspecified K90.9 Active 92385007 Problem Irregular menstrual bleeding N92.6 Active 09354226 Problem Recurrent major depressive disorder, in full remission F33.42 Active 197070937 Problem Factor V Leiden mutation D68.51 Active 229851505 Problem 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 [facility] CENTERVAZATAABARCA [address] [id number] [place] [address] Feb control counseling Z30.09 and BMI 45.0-49.9, adult Z68.42 [facility] [id number] [place] [address] Feb [facility] IntermediaLexx [address] [id number] [place] [address] [facility]Lex[facility] [address] [id number] [place] [address] Feb [facility] IntermediaLexx [place] [address] [id number] [place] [address] January Recurrent major depressive disorder, in full remission F33.42 ; Nausea R11.0 ; Occipital lymphadenopathy R59.0 and BMI 45.0-49.9, adult Z68.[address] [facility] [address] [id number] [place] [address] January Irritable bowel syndrome with diarrhea K58.[address] [facility]Lex[facility] [address] [id number] [place] [address] January [facility] [address] [id number] [place] [address] January Irritable bowel syndrome with diarrhea K58.0 ; Factor V Leiden D68.51 ; Perirectal skin irritation K62.89 ; Recurrent major depressive disorder, in full remission F33.42 and BMI 45.0-49.9, adult Z68.42 IMMUNIZATIONS No Known Immunizations SOCIAL HISTORY Never Assessed REASON FOR VISIT Lab (walk-in) PLAN OF CARE VITAL SIGNS MEDICATIONS Unknown Medications RESULTS No Results PROCEDURES Procedure Date Ordered Result Body Site COMPREHEN METABOLIC PANEL January 18, 2018 COMPLETE CBC W/AUTO DIFF WBC January 18, 2018 VENIPUNCT, ROUTINE* January 18, 2018 ASSAY THYROID STIM HORMONE January 18, 2018 INSTRUCTIONS MEDICATIONS ADMINISTERED No Known Medications MEDICAL (GENERAL) HISTORY Type Description Date Medical History depression Medical History short bowel Medical History insomnia Surgical History small bowel resection X 2 2017 Hospitalization History surgery Hospitalization History Rectal bleeding
--- OUTSIDE RECORDS SUMMARY | 2018-06-30 00:56 | XMS REPORT | Continuity of Care Document ---
Author Author [facility] Organization [facility] Address Unknown Phone Unavailable Allergies Active Description Code Type Severity Reaction Onset Reported/Identified Relationship to Patient Clinical Status Yes Sulfa (Sulfonamide Antibiotics) [id number] Drug Allergy Unknown N/A 2017 Medications There is no data. Problems Date Dx Coded Attending Type Code Diagnosis Diagnosed By 03/16/2018 YADIRA DEVLIN, SUDEEP [place] R11.0 NAUSEA 03/16/2018 YADIRA DEVLIN, SUDEEP [place] R19.7 DIARRHEA, UNSPECIFIED 03/16/2018 YADIRA DEVLIN, SUDEEP [place] Z88.2 ALLERGY STATUS TO SULFONAMIDES STATUS 03/16/2018 YADIRA DEVLIN, SUDEEP [place] Z90.49 ACQUIRED ABSENCE OF OTHER SPECIFIED PART Procedures There is no data. Results Test Result Range TSH - 01/18/18 15:28 TSH 0.90 mIU/L NRG SUREPATH PAP RFX HPV mRNA E6/E7 - 03/01/18 18:35 CLINICAL INFORMATION: NRG LMP: NRG PREV. PAP: NRG PREV. BX: NRG SOURCE: NRG STATEMENT OF ADEQUACY: NRG INTERPRETATION/RESULT: NRG PAIL BAILER: NRG REVIEW PAIL BAILER: NRG COMMENT NRG CULTURE, GENITAL - 03/01/18 19:00 CULTURE, GENITAL SEE NOTE NRG Complete blood count (CBC) with automated white blood cell (WBC) differential - 03/16/18 21:00 Blood leukocytes automated count (number/volume) 8.3 10*3/uL 4.3-11.0 Blood erythrocytes automated count (number/volume) 4.23 10*6/uL 4.35-5.85 Venous blood hemoglobin measurement (mass/volume) 13.3 g/dL 11.5-16.0 Blood hematocrit (volume fraction) 39 % 35-52 Automated erythrocyte mean corpuscular volume 92 [foz_us] 80-99 Automated erythrocyte mean corpuscular hemoglobin (mass per erythrocyte) 31 pg 25-34 Automated erythrocyte mean corpuscular hemoglobin concentration measurement ( mass/volume) 34 g/dL 32-36 Automated erythrocyte distribution width ratio 14.4 % 10.0-14.5 Automated blood platelet count (count/volume) 317 10*3/uL 130-400 Automated blood platelet mean volume measurement 10.2 [foz_us] 7.4-10.4 Automated blood neutrophils/100 leukocytes 53 % 42-75 Automated blood lymphocytes/100 leukocytes 38 % 12-44 Blood monocytes/100 leukocytes 7 % 0-12 Automated blood eosinophils/100 leukocytes 1 % 0-10 Automated blood basophils/100 leukocytes 0 % 0-10 Blood neutrophils automated count (number/volume) 4.4 10*3 1.8-7.8 Blood lymphocytes automated count (number/volume) 3.2 10*3 1.0-4.0 Blood monocytes automated count (number/volume) 0.6 10*3 0.0-1.0 Automated eosinophil count 0.1 10*3/uL 0.0-0.3 Automated blood basophil count (count/volume) 0.0 10*3/uL 0.0-0.1 Complete urinalysis with reflex to culture - 03/16/18 21:00 Urine color determination YELLOW NRG Urine clarity determination CLEAR NRG Urine pH measurement by test strip 5 5-9 Specific gravity of urine by test strip 1.030 1.016- 1.022 Urine protein assay by test strip, semi-quantitative 1+ NEGATIVE Urine glucose detection by automated test strip NEGATIVE NEGATIVE Erythrocytes detection in urine sediment by light microscopy 1+ NEGATIVE Urine ketones detection by automated test strip 1+ NEGATIVE Urine nitrite detection by test strip NEGATIVE NEGATIVE Urine total bilirubin detection by test strip NEGATIVE NEGATIVE Urine urobilinogen measurement by automated test strip (mass/volume) NORMAL NORMAL Urine leukocyte esterase detection by dipstick 1+ NEGATIVE Automated urine sediment erythrocyte count by microscopy (number/high power field) RARE NRG Automated urine sediment leukocyte count by microscopy (number/high power field ) RARE NRG Bacteria detection in urine sediment by light microscopy NONE NRG Squamous epithelial cells detection in urine sediment by light microscopy 2-5 NRG Crystals detection in urine sediment by light microscopy NONE NRG Casts detection in urine sediment by light microscopy NONE NRG Mucus detection in urine sediment by light microscopy NEGATIVE NRG Complete urinalysis with reflex to culture NO NRG Serum or plasma choriogonadotropin ( test) detection - 03/16/18 21:00 Serum or plasma choriogonadotropin ( test) detection NEGATIVE NEGATIVE Comprehensive metabolic panel - 03/16/18 21:00 Serum or plasma sodium measurement (moles/volume) 140 mmol/L 135-145 Serum or plasma potassium measurement (moles/volume) 3.5 mmol/L 3.6-5.0 Serum or plasma chloride measurement (moles/volume) 107 mmol/L 98-107 Carbon dioxide 22 mmol/L 21-32 Serum or plasma anion gap determination (moles/volume) 11 mmol/L 5-14 Serum or plasma urea nitrogen measurement (mass/volume) 10 mg/dL 7-18 Serum or plasma creatinine measurement (mass/volume) 0.79 mg/dL 0.60-1.30 Serum or plasma urea nitrogen/creatinine mass ratio 13 NRG Serum or plasma creatinine measurement with calculation of estimated glomerular filtration rate > NRG Serum or plasma glucose measurement (mass/volume) 81 mg/dL 70-105 Serum or plasma calcium measurement (mass/volume) 9.4 mg/dL 8.5-10.1 Serum or plasma total bilirubin measurement (mass/volume) 0.7 mg/dL 0.1-1.0 Serum or plasma alkaline phosphatase measurement (enzymatic activity/volume) 103 U/L 40-136 Serum or plasma aspartate aminotransferase measurement (enzymatic activity/ volume) 26 U/L 5-34 Serum or plasma alanine aminotransferase measurement (enzymatic activity/volume ) 30 U/L 0-55 Serum or plasma protein measurement (mass/volume) 7.7 g/dL 6.4-8.2 Serum or plasma albumin measurement (mass/volume) 4.3 g/dL 3.2-4.5 Magnesium - 03/16/18 21:00 Magnesium 2.0 mg/dL 1.8-2.4 Encounters ACCT No. Visit Date/Time Discharge Status Pt. Type Provider Facility Loc./Unit Complaint [id number] 11/27/2013 15:01:43 11/27/2013 23:59:59 CLS Outpatient Dion Guevara [id number] 03/16/2018 20:28:00 03/16/2018 23:00:00 DIS Emergency YADIRA DEVLIN, SUDEEP [facility] ER ABD ISSUES [id number] 03/01/2018 18:00:00 03/01/2018 23:59:59 [facility] Outpatient PACO NAIK LAC [id number] 03/01/2018 18:00:00 Document Registration [id number] 01/18/2018 15:00:00 Document Registration
--- OUTSIDE RECORDS SUMMARY | 2018-06-30 00:56 | XMS REPORT ---
Author Author LAKHWINDER POSADAS [facility] Address [address] [place] [address] Care Team Providers Care Clay Transporter Name Role Phone LAKHWINDER POSADAS Unavailable PROBLEMS Type Condition ICD9-CM Code BGQ01-HZ Code Onset Dates Condition Status SNOMED Code Problem Factor V Leiden D68.51 Active 970036754 Problem Intestinal malabsorption, unspecified K90.9 Active 50800044 Problem Irregular menstrual bleeding N92.6 Active 22573399 Problem Recurrent major depressive disorder, in full remission F33.42 Active 794229742 Problem Factor V Leiden mutation D68.51 Active 952510227 Problem 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 493540480 Problem Irritable bowel syndrome with diarrhea K58.0 Active 460241583 ALLERGIES Substance Reaction Event Type Date Status Sulfa drugs Rash Non Drug Allergy January, Active ENCOUNTERS Encounter Location Date Diagnosis [facility] [address] [id number] [place] [address] Apr Irritable bowel syndrome with diarrhea K58.0 ; Nausea R11.0 ; 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 ; Irregular menstrual bleeding N92.6 and BMI 45.0- 49.9, adult Z68.42 [facility] [id number] [address] Feb Well woman exam with routine gynecological exam Z01.419 ; Screening for STDs (sexually transmitted diseases) Z11.3 ; BMI 45.0-49.9, adult Z68.42 and Vaginal itching N89.8 [facility] [id number] [place] [address] Feb control counseling Z30.09 and BMI 45.0-49.9, adult Z68.42 [facility] [address] [place] [address] Feb [facility] [place] [address] [id number] [place] [address] Feb [facility] [place] [address] [id number] [place] [address] Feb [facility] [place] [address] [id number] [place] [address] January Recurrent major depressive disorder, in full remission F33.42 ; Nausea R11.0 ; Occipital lymphadenopathy R59.0 and BMI 45.0-49.9, adult Z68.42 [facility] [place] [address] [id number] [place] [address] January Irritable bowel syndrome with diarrhea K58.[address] [facility] [address] [id number] [place] [address] January [facility] [place] [address] [id number] [place] [address] January Irritable bowel syndrome with diarrhea K58.0 ; Factor V Leiden D68.51 ; Perirectal skin irritation K62.89 ; Recurrent major depressive disorder, in full remission F33.42 and BMI 45.0-49.9, adult Z68.42 IMMUNIZATIONS No Known Immunizations SOCIAL HISTORY Never Assessed REASON FOR VISIT Knot on Head , Pt has a knot on the back of her head, its warm, and tender to touch. X 3., Pt found out her sex partner in December has herpes. , Pt states being out of Trazodone. PALLAVI Bustillos PLAN OF CARE Activity Details Follow Up prn Reason: VITAL SIGNS Height 66 in 2018-01-28 Weight 281.8 lbs 2018-01-28 Temperature 98.0 degrees Fahrenheit 2018-01-28 Heart Rate 88 bpm 2018-01-28 Respiratory Rate 18 2018-01-28 Oximetry 98 % 2018-01-28 BMI 45.48 kg/m2 2018-01-28 Blood pressure systolic 116 mmHg 2018-01-28 Blood pressure diastolic 74 mmHg 2018-01-28 MEDICATIONS Medication Instructions Dosage Frequency Start Date End Date Duration Status Viberzi 75 MG Orally Twice a day 1 tablet with food 12h January,January 90 days Not-Taking Eliquis 5 MG Orally 2 times a day 1 tablet 12h 90 days Active Citalopram Hydrobromide 40 MG Orally Once a day 1 tablet 24h Active Trazodone HCl 50 MG Orally Once a day 1 tablet at bedtime 24h Active RESULTS Name Result Date Reference Range TEST, URINE (IN HOUSE) 2018-01-28 RESULTS negative Lot # [id number] Control + Exp date 04/2019 PROCEDURES Procedure Date Ordered Result Body Site URINE TEST January 28, 2018 INSTRUCTIONS MEDICATIONS ADMINISTERED No Known Medications MEDICAL (GENERAL) HISTORY Type Description Date Medical History depression Medical History short bowel Medical History insomnia Surgical History small bowel resection X 2 2017 Hospitalization History surgery Hospitalization History Rectal bleeding
--- OUTSIDE RECORDS SUMMARY | 2018-06-30 00:56 | XMS REPORT ---
Author Author LAKHWINDER POSADAS [facility] Address [address] [place] [address] Care Team Providers Care Quitline Counselor Name Role Phone LAKHWINDER POSADAS Unavailable PROBLEMS Type Condition ICD9-CM Code DZO41-HC Code Onset Dates Condition Status SNOMED Code Problem Factor V Leiden D68.51 Active 079990211 Problem Intestinal malabsorption, unspecified K90.9 Active 56903173 Problem Irregular menstrual bleeding N92.6 Active 05952437 Problem Recurrent major depressive disorder, in full remission F33.42 Active 575422692 Problem Factor V Leiden mutation D68.51 Active 162136283 Problem 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 282916960 Problem Irritable bowel syndrome with diarrhea K58.0 Active 075106169 ALLERGIES Substance Reaction Event Type Date Status Sulfa drugs Rash Non Drug Allergy January, Active ENCOUNTERS Encounter Location Date [facility] [id number] [place] [address] Apr Irritable bowel syndrome with diarrhea K58.0 ; Nausea R11.0 ; 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 ; Irregular menstrual bleeding N92.6 and BMI 45.0- 49.9, adult Z68.42 [facility] [address] [address] Feb Well woman exam with routine gynecological exam Z01.419 ; Screening for STDs (sexually transmitted diseases) Z11.3 ; BMI 45.0-49.9, adult Z68.42 and Vaginal itching N89.8 [facility] [address] [place] [address] 19 Feb control counseling Z30.09 and BMI 45.0-49.9, adult Z68.42 [facility] [place] [address] [place] [address] Feb [facility] [place] [address] [id number] [place] [address] Feb [facility] [address] [id number] [place] [address] Feb [facility] [place] [address] [id number] [place] [address] January Recurrent major depressive disorder, in full remission F33.42 ; Nausea R11.0 ; Occipital lymphadenopathy R59.0 and BMI 45.0-49.9, adult Z68.42 [facility] [address] [id number] [place] [address] January Irritable bowel syndrome with diarrhea K58.0 [facility] [address] [id number] [place] [address] January [facility] [address] [id number] [place] [address] January Irritable bowel syndrome with diarrhea K58.0 ; Factor V Leiden D68.51 ; Perirectal skin irritation K62.89 ; Recurrent major depressive disorder, in full remission F33.42 and BMI 45.0-49.9, adult Z68.42 IMMUNIZATIONS No Known Immunizations SOCIAL HISTORY Never Assessed REASON FOR VISIT Establish Care, Pt states burning while has a Bowel movement X 2 days. PALLAVI Nieto PLAN OF CARE Activity Details Follow Up 1 month Reason:IBS f/u VITAL SIGNS Height 66 in 2018-01-11 Weight 282.9 lbs 2018-01-11 Temperature 98.1 degrees Fahrenheit 2018-01-11 Heart Rate 76 bpm 2018-01-11 Respiratory Rate 18 2018-01-11 Oximetry 98 % 2018-01-11 BMI 45.66 kg/m2 2018-01-11 Blood pressure systolic 118 mmHg 2018-01-11 Blood pressure diastolic 72 mmHg 2018-01-11 MEDICATIONS Medication Instructions Dosage Frequency Start Date End Date Duration Status Xifaxan 550 MG Orally Twice a day 1 tablet 12h January, January, 10 day(s) Active Dicyclomine HCl 10 MG Orally Four times a day 1 capsule 6h Active Eliquis 5 MG Orally 2 times a day 1 tablet 12h 90 days Active Viberzi 75 MG Orally Twice a day 1 tablet with food 12h January,January 90 days Active Trazodone HCl 50 MG Orally Once a day 1 tablet at bedtime 24h Active Citalopram Hydrobromide 40 MG Orally Once [...]
--- OUTSIDE RECORDS SUMMARY | 2018-06-30 00:56 | XMS REPORT ---
Author Author [facility]INDER [facility]AD[facility] Address [address] [place] [address] Care Team Providers Care Legislators Name Role Phone LAKHWINDER POSADAS Unavailable PROBLEMS Type Condition ICD9-CM Code KYV03-CK Code Onset Dates Condition Status SNOMED Code Problem Factor V Leiden D68.51 Active 135092461 Problem Intestinal malabsorption, unspecified K90.9 Active 35636816 Problem Irregular menstrual bleeding N92.6 Active 62710381 Problem Recurrent major depressive disorder, in full remission F33.42 Active 748368182 Problem Factor V Leiden mutation D68.51 Active 801457564 Problem 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 790821698 Problem Irritable bowel syndrome with diarrhea K58.0 Active 815528816 ALLERGIES No Information ENCOUNTERS Encounter Location Date [facility] [address] [id number] [place] [address] Apr Irritable bowel syndrome with diarrhea K58.0 ; Nausea R11.0 ; 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 ; Irregular menstrual bleeding N92.6 and BMI 45.0- 49.9, adult Z68.42 [facility] [place] [address] [id number] [place] [address] 27 Feb 2018 Well woman exam with routine gynecological exam Z01.419 ; Screening for STDs (sexually transmitted diseases) Z11.3 ; BMI 45.0-49.9, adult Z68.42 and Vaginal itching N89.8 [facility] [id number] [place] [address] 19 Feb control counseling Z30.09 and BMI 45.0-49.9, adult Z68.42 [facility] [place] [address] [id number] [place] [address] 13 Feb [facility] [address] [place] [address] Feb [facility] [place] [address] [id number] [place] [address] Feb [facility] [place] [address] [id number] [place] [address] January Recurrent major depressive disorder, in full remission F33.42 ; Nausea R11.0 ; Occipital lymphadenopathy R59.0 and BMI 45.0-49.9, adult Z68.42 [facility] [place] [employer] [address] [id number] [place] [address] January Irritable bowel syndrome with diarrhea K58.0 [facility] [place] [employer] [address] [id number] [place] [address] January [facility] [place] [employer] [address] [id number] [place] [address] January Irritable bowel syndrome with diarrhea K58.0 ; Factor V Leiden D68.51 ; Perirectal skin irritation K62.89 ; Recurrent major depressive disorder, in full remission F33.42 and BMI 45.0-49.9, adult Z68.42 IMMUNIZATIONS No Known Immunizations SOCIAL HISTORY Never Assessed REASON FOR VISIT PALS PLAN OF CARE VITAL SIGNS MEDICATIONS No Known Medications RESULTS No Results PROCEDURES No Known procedures INSTRUCTIONS MEDICATIONS ADMINISTERED No Known Medications MEDICAL (GENERAL) HISTORY Type Description Date Medical History depression Medical History short bowel Medical History insomnia Surgical History small bowel resection X 2 2017 Hospitalization History surgery Hospitalization History Rectal bleeding
--- NOTE | 2018-06-30 01:18 | ED Upper Extremity ---
General Stated Complaint: RT ARM KNNE-DOFQNP-VXR NO INJURY Source: patient, other Exam Limitations: no limitations History of Present Illness Date Seen by Provider: Jun 30, 2018 Time Seen by Provider: 01:02 Initial Comments Patient presents to ER by private conveyance with chief complaint she's having for the past few weeks some progressively worsening numbness tingling in her right arm the fourth and fifth fingers and some numbness tingling radiating down from her elbow to her wrist. She got her first it might of been carpal tunnel syndrome and had some wrist splints so she put those on but it did not help. She's been using Tylenol with marginal success. She cannot take NSAIDs because she has factor V 5 Leiden and she is on Eliquis. She has not really noticed any swelling or muscle wasting or weakness. She is right-handed. 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 Numbness and pain is more pronounced at the end of the day and better after she rests. Allergies and Home Medications Allergies Coded Allergies: Sulfa (Sulfonamide Antibiotics) (Verified Allergy, Unknown, 03/16/18) Home Medications Hyoscyamine Sulfate 0.125 Mg Tab.subl, 1-2 MG SL Q4H PRN for CRAMPS For diarrhea or abdominal cramping Prescribed by: SUDEEP CARMEN on 03/16/182250 Ondansetron 4 Mg Tab.rapdis, 4 MG SL Q4H PRN for NAUSEA/VOMITING-1ST LINE Prescribed by: SUDEEP CARMEN on 03/16/182250 Patient Home Medication List Home Medication List Reviewed: Yes Review of Systems Constitutional: No chills, No diaphoresis EENTM: No ear discharge, No hearing loss, No ear pain Respiratory: No cough, No short of breath Cardiovascular: No chest pain, No edema Gastrointestinal: No abdominal pain, No nausea Past Petryui-Hpffuc-Hgqsvl Hx Patient Social History Alcohol Use: Denies Use Recreational Drug Use: No Smoking Status: Never a Smoker Recent Foreign Travel: No Contact w/Someone Who Travel: No Recent Hopitalizations: No Immunizations Up To Date Tetanus Booster (TDap): Unknown Seasonal Allergies Seasonal Allergies: No Past Medical History Surgeries: Yes (small bowel resection) Abdominal Respiratory: No Cardiac: Yes (Factor V Leiden causing mesenteric embolism, now anticoagulated) Neurological: No Reproductive Disorders: No Genitourinary: No Gastrointestinal: Yes (small intestine blood clot) Irritable Bowel Musculoskeletal: No Endocrine: No HEENT: No Cancer: No Psychosocial: Yes Anxiety, Depression Integumentary: No Blood Disorders: Yes (Factor V Leiden) Adverse Reaction/Blood Tranf: No Physical Exam Vital Signs Capillary Refill : Height, Weight, BMI Height: 5'8.00" Weight: 275lbs. oz. 124.596850ui; BMI Method:Stated General Appearance: WD/WN, no apparent distress HEENT: PERRL/EOMI, normal ENT inspection, TMs normal, pharynx normal Neck: non-tender, full range of motion, supple Cardiovascular: normal peripheral pulses, regular rate, rhythm Respiratory: chest non-tender, lungs clear, normal breath sounds, no respiratory distress, no accessory muscle use Elbow/Forearm: normal inspection, no evidence of injury, normal ROM, Right, soft tissue tenderness (mild tenderness to [place] tap over the medial olecranon) Progress/Results/Core Measures Progress Progress Note : Time: 01:16 Progress Note There is what appears to be an ulnar entrapment syndrome so we'll start her on some steroids orally. She can't use NSAIDs because of the Eliquis. If her symptoms not getting better she can consider following up with Dr. Baker, orthopedics or primary care provider and consider an injection. Departure Impression Primary Impression: Ulnar nerve entrapment syndrome Qualified Codes: G56.21 - Lesion of ulnar nerve, right upper limb Disposition: HOME, SELF-CARE Condition: Stable Departure-Patient Inst. Decision time for Depature: 01:15 Referrals: YAMILE BAKER ERIN R APRN (PCP) Primary Care Physician Patient Instructions: NO INSTRUCTIONS GIVEN Add. Discharge Instructions: Apply ice directly over the medial elbow every 4 hours for the first 3 days. You can use icy hot, Biofreeze etc. You can also use heat afterwards for relief. Tylenol 1000 mg every 8 hours. Start taking the prednisone one tablet twice a day for the next 5 days. Wear the neoprene sleeve or Rupert bandage wrap around her right elbow for compression. Follow-up with primary care if you're not seeing relief. Scripts Prednisone (Prednisone) 20 Mg Tab 20 MG PO BID for 5 Days, #10 TAB 0 Refills Prov: MEAGAN CARDOZO 06/30/18 Work/School Note: Work Release Form Date Seen in the Emergency Department: Jun 30, 2018 Return to Work: Jun 30, 2018 Restrictions: No Restrictions Other Restrictions Listed Below: Needs to wear Rupert bandage or neoprene sleeve on right elbow until 07/31/18. MEAGAN CARDOZO Jun 30, 2018 01:18
[2018-06-30] MEDS ORDERED: PRD20T PO (01:19)
[2018-06-30 01:25] VITALS: BP 131/104
== END 2018-06-30 01:26 | disposition home or self-care (01) ==
LOC: EDUNIT# 00:47 → ER 00:50
DX: G56.21 Lesion of ulnar nerve, right upper limb (principal); F41.9 Anxiety disorder, unspecified; F32.9 Major depressive disorder, single episode, unspecified; Z88.2 Allergy status to sulfonamides; Z90.49 Acquired absence of other specified parts of digestive tract; Z87.19 Personal history of other diseases of the digestive system
CPT/HCPCS: 99282

== ENCOUNTER 2018-08-10 01:43 | Emergency (ER) | payer OTHER ==
[~2018-08-10] VITALS: Ht 172.7 cm; Wt 88.5 kg
[~2018-08-10 01:43] MED LIST changes: +PRD20T PO
--- OUTSIDE RECORDS SUMMARY | 2018-08-10 01:48 | XMS REPORT ---
Author Author [facility]INDER POSADAS [facility] Address [address] [place] [address] Care Team Providers Care Soil Conservation Aide Name Role Phone LAKHWINDER POSADAS Unavailable PROBLEMS Type Condition ICD9-CM Code KJQ19-FC Code Onset Dates Condition Status SNOMED Code Problem Factor V Leiden D68.51 Active 001570140 Problem Intestinal malabsorption, unspecified K90.9 Active 49950456 Problem Irregular menstrual bleeding N92.6 Active 31429306 Problem Recurrent major depressive disorder, in full remission F33.42 Active 972345250 Problem Factor V Leiden mutation D68.51 Active 365247163 Problem 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 160941489 Problem Irritable bowel syndrome with diarrhea K58.0 Active 050013100 ALLERGIES No Information ENCOUNTERS Encounter Location Date Diagnosis [facility] [address] [id number] [place] [address] Jul [facility] [address] [id number] [place] [address] Jul [facility] [address] [id number] [place] [address] Jun Irritable bowel syndrome with diarrhea K58.0 [facility] [address] [id number] [place] [address] Jun Irritable bowel syndrome with diarrhea K58.0 [facility] [address] [id number] [place] [address] Jun [facility] [address] [id number] [place] [address] Jun Irritable bowel syndrome with diarrhea K58.0 [facility] [address] [id number] [place] [address] Jun [facility] [address] [id number] [place] [address] May Acute nasopharyngitis J00 ; Encounter for other contraceptive management Z30.8 ; Encounter for Depo-Provera contraception Z30.42 and BMI 45.0- 49.9, adult Z68.42 [facility]ALLoopcam [place] [address] 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 ; Irregular menstrual bleeding N92.6 and BMI 45.0- 49.9, adult Z68.42 [facility]ITALB[facility] PharmaABARCA [employer] [address] [id number] [place] [address] 27 Feb Well woman exam with routine gynecological exam Z01.419 ; Screening for STDs (sexually transmitted diseases) Z11.3 ; BMI 45.0-49.9, adult Z68.42 and Vaginal itching N89.8 [facility]ITALB[facility] PharmaABAR[facility] [address] [id number] [place] [address] 19 Feb control counseling Z30.09 and BMI 45.0-49.9, adult Z68.42 [facility]ITALB[facility] PharmaABAR[facility] [employer] [address] [id number] [place] [address] 13 Feb [facility] HOSPITALVectus IndustriesONS [employer] [address] [id number] [place] [address] Feb [facility]ITALB[facility] PharmaABAR[facility] [employer] [address] [id number] [place] [address] Feb [facility] HOSPITALVectus IndustriesONS [address] [id number] [place] [address] January Recurrent major depressive disorder, in full remission F33.42 ; Nausea R11.0 ; Occipital lymphadenopathy R59.0 and BMI 45.0-49.9, adult Z68.42 [facility] [address] [id number] [place] [address] January Irritable bowel syndrome with diarrhea K58.0 [facility] [place] [address] [id number] [place] [address] January [facility] [address] [id number] [place] [address] January Irritable bowel syndrome with diarrhea K58.0 ; Factor V Leiden D68.51 ; Perirectal skin irritation K62.89 ; Recurrent major depressive disorder, in full remission F33.42 and BMI 45.0-49.9, adult Z68.42 IMMUNIZATIONS No Known Immunizations SOCIAL HISTORY Never Assessed REASON FOR VISIT [facility] for [facility] PLAN OF CARE VITAL SIGNS MEDICATIONS Unknown Medications RESULTS No Results PROCEDURES No Known procedures INSTRUCTIONS MEDICATIONS ADMINISTERED No Known Medications MEDICAL (GENERAL) HISTORY Type Description Date Medical History depression Medical History short bowel Medical History insomnia Surgical History small bowel resection X 2 2017 Hospitalization History surgery Hospitalization History Rectal bleeding
--- OUTSIDE RECORDS SUMMARY | 2018-08-10 01:48 | XMS REPORT ---
Author Author LAKHWINDER POSADAS Organization [facility]ITALSigma PharmaceuticalsK [place] Address [address] [place] [address] Care Team Providers Care Price Clerk Name Role Phone LAKHWINDER POSADAS Unavailable PROBLEMS Type Condition ICD9-CM Code NFS68-PD Code Onset Dates Condition Status SNOMED Code Problem Factor V Leiden D68.51 Active 729267721 Problem Intestinal malabsorption, unspecified K90.9 Active 93094785 Problem Irregular menstrual bleeding N92.6 Active 76143557 Problem Recurrent major depressive disorder, in full remission F33.42 Active 398722605 Problem Factor V Leiden mutation D68.51 Active 935370988 Problem 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 661986306 Problem Irritable bowel syndrome with diarrhea K58.0 Active 606781892 ALLERGIES No Information ENCOUNTERS Encounter Location Date Diagnosis [facility] [address] [id number] [place] [address] Jul [facility] [address] [id number] [place] [address] Jul [facility] [address] [id number] [place] [address] Jul Irritable bowel syndrome with diarrhea K58.0 [facility] [address] [id number] [place] [address] Jun Irritable bowel syndrome with diarrhea K58.0 [facility] [address] [id number] [place] [address] Jun Irritable bowel syndrome with diarrhea K58.0 [facility]ITALSEWibiya [address] [id number] [place] [address] Jun [facility]OS[facility]ITALSEVital Health Data SolutionsABARCA [address] [id number] [place] [address] Jun Irritable bowel syndrome with diarrhea K58.0 [facility] [address] [id number] [place] [address] Jun [facility] [place] [address] [id number] [place] [address] May Acute nasopharyngitis J00 ; Encounter for other contraceptive management Z30.8 ; Encounter for Depo-Provera contraception Z30.42 and BMI 45.0- 49.9, adult Z68.42 [facility] [place] [address] [facility] [id number] [place] [address] Apr, [facility] [place] [address] [id number] [place] [address] Apr [facility] [place] [address] [id number] [place] [address] Apr Factor V Leiden D68.51 [facility] [place] [address] [id number] [place] [address] Apr 2018 Irritable bowel syndrome with diarrhea K58.0 ; Nausea R11.0 ; 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 ; Irregular menstrual bleeding N92.6 and BMI 45.0- 49.9, adult Z68.42 [facility]IT[facility] [place] [address] [id number] [place] [address] 27 Feb Well woman exam with routine gynecological exam Z01.419 ; Screening for STDs (sexually transmitted diseases) Z11.3 ; BMI 45.0-49.9, adult Z68.42 and Vaginal itching N89.8 [facility] [place] [address] [id number] [place] [address] 19 Feb control counseling Z30.09 and BMI 45.0-49.9, adult Z68.42 [facility] [place] [address] [id number] [place] [address] Feb [facility] HOSPITALSer[facility] [place] [address] [id number] [place] [address] 12 Feb [facility]ITALSer[facility] [place] [address] [id number] [place] [address] Feb [facility]ITALSer[facility] [place] [address] [id number] [place] [address] January Recurrent major depressive disorder, in full remission F33.42 ; Nausea R11.0 ; Occipital lymphadenopathy R59.0 and BMI 45.0-49.9, adult Z68.42 [facility] [address] [id number] [place] [address] January Irritable bowel syndrome with diarrhea K58.0 [facility] [employer] [address] [id number] [place] [address] January [facility] [employer] [address] [id number] [place] [address] January Irritable bowel syndrome with diarrhea K58.0 ; Factor V Leiden D68.51 ; Perirectal skin irritation K62.89 ; Recurrent major depressive disorder, in full remission F33.42 and BMI 45.0-49.9, adult Z68.42 IMMUNIZATIONS No Known Immunizations SOCIAL HISTORY Never Assessed REASON FOR VISIT [facility] PL[facility] OF CARE VITAL SIGNS MEDICATIONS Unknown Medications RESULTS No Results PROCEDURES No Known procedures INSTRUCTIONS MEDICATIONS ADMINISTERED No Known Medications MEDICAL (GENERAL) HISTORY Type Description Date Medical History depression Medical History short bowel Medical History insomnia Surgical History small bowel resection X 2 2017 Hospitalization History surgery Hospitalization History Rectal bleeding
--- OUTSIDE RECORDS SUMMARY | 2018-08-10 01:48 | XMS REPORT ---
Author Author LAKHWINDER POSADAS Organization [facility] Address [address] [place] [address] Care Team Providers Care Event Marketing Intern Name Role Phone LAKHWINDER POSADAS Unavailable PROBLEMS Type Condition ICD9-CM Code CBB02-RB Code Onset Dates Condition Status SNOMED Code Problem Factor V Leiden D68.51 Active 047881744 Problem Intestinal malabsorption, unspecified K90.9 Active 19626845 Problem Irregular menstrual bleeding N92.6 Active 72525187 Problem Recurrent major depressive disorder, in full remission F33.42 Active 577114397 Problem Factor V Leiden mutation D68.51 Active 427020704 Problem 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 915353842 Problem Irritable bowel syndrome with diarrhea K58.0 Active 023085944 ALLERGIES No Information ENCOUNTERS Encounter Location Date Diagnosis [facility] [address] [id number] [place] [address] Jul [facility] [address] [id number] [place] [address] Jul Irritable bowel syndrome with diarrhea K58.0 [facility] [address] [id number] [place] [address] Jun Irritable bowel syndrome with diarrhea K58.0 [facility] [place] [address] [id number] [place] [address] Jun Irritable bowel syndrome with diarrhea K58.0 [facility] [address] [id number] [place] [address] Jun [email or web address] [address] [id number] [place] [address] Jun Irritable bowel syndrome with diarrhea K58.0 [email or web address] [address] [id number] [place] [address] Jun [facility] [address] [id number] [place] [address] May Acute nasopharyngitis J00 ; Encounter for other contraceptive management Z30.8 ; Encounter for Depo-Provera contraception Z30.42 and BMI 45.0- 49.9, adult Z68.42 [facility] [address] [facility] [id number] [place] [address] Apr, [facility]ITALSTEMpowerkidsABARCA [address] [id number] [place] [address] Apr [facility]OSPITALSTEMpowerkidsABAR[facility] [address] [id number] [place] [address] Apr Factor V Leiden D68.51 [facility]ITALSTEMpowerkidsAB[facility] Clinical Data [address] [id number] [place] [address] Apr Irritable bowel syndrome with diarrhea K58.0 ; Nausea R11.0 ; 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 ; Irregular menstrual bleeding N92.6 and BMI 45.0- 49.9, adult Z68.42 [facility] [place] [address] [id number] [place] [address] 27 Feb 2018 Well woman exam with routine gynecological exam Z01.419 ; Screening for STDs (sexually transmitted diseases) Z11.3 ; BMI 45.0-49.9, adult Z68.42 and Vaginal itching N89.8 [facility] [email or web address] [place] [address] [id number] [place] [address] 19 Feb 2018 control counseling Z30.09 and BMI 45.0-49.9, adult Z68.42 [facility]ITALSTEMpowerkidsABAR[facility] Clinical Data [address] [id number] [place] [address] 13 Feb [facility] [address] [id number] [place] [address] Feb [facility] [address] [id number] [place] [address] Feb [facility] [address] [id number] [place] [address] January Recurrent major depressive disorder, in full remission F33.42 ; Nausea R11.0 ; Occipital lymphadenopathy R59.0 and BMI 45.0-49.9, adult Z68.42 [facility] [address] [id number] [place] [address] January Irritable bowel syndrome with diarrhea K58.0 [facility] [place] [address] [id number] [place] [address] January [facility] [place] [address] [id number] [place] [address] January Irritable bowel syndrome with diarrhea K58.0 [...] day 1 tablet with food 12h January, 90 days Active RESULTS No Results PROCEDURES No Known procedures INSTRUCTIONS MEDICATIONS ADMINISTERED No Known Medications MEDICAL (GENERAL) HISTORY Type Description Date Medical History depression Medical History short bowel Medical History insomnia Surgical History small bowel resection X 2 2017 Hospitalization History surgery Hospitalization History Rectal bleeding
--- OUTSIDE RECORDS SUMMARY | 2018-08-10 01:49 | XMS REPORT | Continuity of Care Document ---
Author Author [facility] Organization [facility] Address Unknown Phone Unavailable Allergies Active Description Code Type Severity Reaction Onset Reported/Identified Relationship to Patient Clinical Status Yes Sulfa (Sulfonamide Antibiotics) [id number] Drug Allergy Unknown N/A 2017 Medications There is no data. Problems Date Dx Coded Attending Type Code Diagnosis Diagnosed By 03/16/2018 SUDEEP MAY MD Ot R11.0 NAUSEA 03/16/2018 SUDEEP MAY MD Ot R19.7 DIARRHEA, UNSPECIFIED 03/16/2018 SUDEEP MAY MD Ot Z88.2 ALLERGY STATUS TO SULFONAMIDES STATUS 03/16/2018 SUDEEP MAY MD Ot Z90.49 ACQUIRED ABSENCE OF OTHER SPECIFIED PART 06/30/2018 MEAGAN CARDOZO MD Ot F32.9 MAJOR DEPRESSIVE DISORDER, SINGLE EPISOD 06/30/2018 MEAGAN CARDOZO MD Ot F41.9 ANXIETY DISORDER, UNSPECIFIED 06/30/2018 MEAGAN CARDOZO MD Ot G56.21 LESION OF ULNAR NERVE, RIGHT UPPER LIMB 06/30/2018 MEAGAN CARDOZO MD Ot R20.0 ANESTHESIA OF SKIN 06/30/2018 MEAGAN CARDOZO MD Ot Z87.19 PERSONAL HISTORY OF OTHER DISEASES OF TH 06/30/2018 MEAGAN CARDOZO MD Ot Z88.2 ALLERGY STATUS TO SULFONAMIDES STATUS 06/30/2018 MEAGAN CARDOZO MD Ot Z90.49 ACQUIRED ABSENCE OF OTHER SPECIFIED PART 07/04/2018 MEAGAN CARDOZO MD Ot F32.9 MAJOR DEPRESSIVE DISORDER, SINGLE EPISOD 07/04/2018 MEAGAN CARDOZO MD Ot F41.9 ANXIETY DISORDER, UNSPECIFIED 07/04/2018 MEAGAN CARDOZO MD Ot G56.21 LESION OF ULNAR NERVE, RIGHT UPPER LIMB 07/04/2018 MEAGAN CARDOZO MD Ot R20.0 ANESTHESIA OF SKIN 07/04/2018 MEAGAN CARDOZO MD, Ot Z87.19 PERSONAL HISTORY OF OTHER DISEASES OF 07/04/2018 MEAGAN CARDOZO MD, Ot Z88.2 ALLERGY STATUS TO SULFONAMIDES STATUS 07/04/2018 MEAGAN CARDOZO MD, Ot Z90.49 ACQUIRED ABSENCE OF OTHER SPECIFIED PART Procedures There is no data. Results Test Result Range TSH - 01/18/18 15:28 TSH 0.90 mIU/L NRG SUREPATH PAP RFX HPV mRNA E6/E7 - 03/01/18 18:35 CLINICAL INFORMATION: NRG LMP: NRG PREV. PAP: NRG PREV. BX: NRG SOURCE: NRG STATEMENT OF ADEQUACY: NRG INTERPRETATION/RESULT: NRG TRAFFIC REPORTER: NRG REVIEW TRAFFIC REPORTER: NRG COMMENT NRG CULTURE, GENITAL - 03/01/18 [...] Status Pt. Type Provider Facility Loc./Unit Complaint [id number] 11/27/2013 15:01:43 11/27/2013 23:59:59 CLS Outpatient Dion Guevara [id number] 06/30/2018 00:50:00 06/30/2018 01:26:00 DIS Emergency MEAGAN CARDOZO MD [facility] ER RT ARM [id number] NO INJURY [id number] 03/16/2018 20:28:00 03/16/2018 23:00:00 DIS Emergency SUDEEP MAY MD [facility] ER ABD ISSUES [id number] 08/10/2018 01:44:00 ACT Emergency KOSTA DUMAS MD [facility] ER DIARRHEA,RECTAL BLEEDING [id number] 03/01/2018 18:00:00 03/01/2018 23:59:59 CLS Outpatient PACO NAIK LAC [id number] 03/01/2018 18:00:00 Document Registration [id number] 01/18/2018 15:00:00 Document Registration
[2018-08-10] MEDS ORDERED: HYDROcodone/APAP 5 MG/325 MG (LORTAB) TAB PO STA (02:27)
[2018-08-10] MEDS ORDERED: ZINC OXIDE 40% OINT (DESITIN) 28 GM ONE (02:31)
--- NOTE | 2018-08-10 02:35 | ED GI ---
General Chief Complaint: Rect Problems Stated Complaint: DIARRHEA,RECTAL BLEEDING Nursing Triage Note: Patient advises she has been experiencing loose stools for several days that has been accompanied by severe irritation and pain. She advised that she has been experiencing some bleeding and has had significant bleeding in the past. Sepsis Screen: No Definite Risk Source of Information: Patient Exam Limitations: No Limitations History of Present Illness Date Seen by Provider: Aug 10, 2018 Time Seen by Provider: 02:07 Initial Comments Here with report of diarrhea that has been fairly persistent. She does have irritable bowel syndrome and had partial small bowel resection due to blood clot in the past. That was related factor V Leiden disorder. She is anticoagulated now. She has been unable to take her meds for irritable bowel because it is on back order and they're unable to get it. She is currently taking Lomotil prescription and that is not doing much good. She states every time she has a bowel movement and feels like fire or acid from her bottom. She does note some blood in her stool which is not uncommon. Pain seems to be at her bottom and she states it hurts to sit on her bottom. Timing/Duration: 1 Week, Getting Worse Severity/Quality: Moderate, Burning Location: Other (perirectal) Radiation: No Radiation Activities at Onset: None Modifying Factors: Worsens With Defecating, Worsens With Movement; Improves With Resting Associated Symptoms: No Back Pain, No Fever/Chills, No Nausea/Vomiting, No Weakness Allergies and Home Medications Allergies Coded Allergies: Sulfa (Sulfonamide Antibiotics) (Verified Allergy, Unknown, 08/10/18) Home Medications Hyoscyamine Sulfate 0.125 Mg Tab.subl, 1-2 MG SL Q4H PRN for CRAMPS For diarrhea or abdominal cramping Prescribed by: SUDEEP CARMEN on 03/16/182250 Ondansetron 4 Mg Tab.rapdis, 4 MG SL Q4H PRN for NAUSEA/VOMITING-1ST LINE Prescribed by: SUDEEP CARMEN on 03/16/182250 Prednisone 20 Mg Tab, 20 MG PO BID Prescribed by: MEAGAN CARDOZO on 06/30/18 0119 Patient Home Medication List Home Medication List Reviewed: Yes Review of Systems Review of Systems Constitutional: see HPI; No chills, No fever EENTM: No Symptoms Reported Respiratory: No Symptoms Reported Cardiovascular: No Symptoms Reported Gastrointestinal: See HPI, Diarrhea, Rectal Bleeding Genitourinary: No Symptoms Reported Skin: see HPI, change in color, lesions Psychiatric/Neurological: No Symptoms Reported Past Cfamjzc-Ixfqqy-Nvjqiv Hx Past Med/Social Hx: Reviewed Nursing Past Med/Soc Hx Patient Social History Alcohol Use: Denies Use Recreational Drug Use: No Smoking Status: Never a Smoker Recent Foreign Travel: No Contact w/Someone Who Travel: No Recent Infectious Disease Expo: No Recent Hopitalizations: No Immunizations Up To Date Tetanus Booster (TDap): Unknown Seasonal Allergies Seasonal Allergies: No Past Medical History Surgeries: Yes (small bowel resection) Abdominal Respiratory: No Cardiac: Yes (Factor V Leiden causing mesenteric embolism, now anticoagulated) Neurological: No : No Last Menstrual Period: May 11, 2018 Reproductive Disorders: No Genitourinary: No Gastrointestinal: Yes (small intestine blood clot) Irritable Bowel Musculoskeletal: No Endocrine: No HEENT: No Cancer: No Psychosocial: Yes Anxiety, Depression Integumentary: No Blood Disorders: Yes (Factor V Leiden) Adverse Reaction/Blood Tranf: No Family Medical History Reviewed Nursing Family Hx Physical Exam Vital Signs Vital Signs - First Documented 08/10/18 02:15 Temp 99.0 Pulse 73 Resp 16 B/P (MAP) 120/81 (94) Pulse Ox 98 O2 Delivery Room Air Capillary Refill : Less Than 3 Seconds Height/Weight/BMI Height: 5'8.00" Weight: 195lbs. oz. 88.030068ra; BMI Method:Estimated General Appearance: WD/WN, no apparent distress Respiratory: lungs clear, normal breath sounds Cardiovascular: regular rate, rhythm, no murmur Gastrointestinal: non tender, soft Rectal: heme positive stool (faint), tenderness, other (has wounds to the buttocks in the perirectal area consistent with persistent irritation with skin breakdown. Wounds are not deep and appeared superficial but were approximately 3 x 6 cm to each buttocks where the skin reflects and touches together) Back: normal inspection, no CVA tenderness Neurologic/Psychiatric: alert, oriented x 3 Skin: warm/dry, other (skin irritation to the buttocks as described above) Progress/Results/Core Measures Results/Orders Lab Results Laboratory Tests Test 08/10/18 03:04 Range/Units White Blood Count 9.5 4.3-11.0 10^3/uL Red Blood Count 4.19 L 4.35-5.85 10^6/uL Hemoglobin 13.4 11.5-16.0 G/DL Hematocrit 39 35-52 % Mean Corpuscular Volume 94 80-99 FL Mean Corpuscular Hemoglobin 32 25-34 PG Mean Corpuscular Hemoglobin Concent 34 32-36 G/DL Red Cell Distribution Width 14.5 10.0-14.5 % Platelet Count 327 130-400 10^3/uL Mean Platelet Volume 9.6 7.4-10.4 FL Neutrophils (%) (Auto) 48 42-75 % Lymphocytes (%) (Auto) 42 12-44 % Monocytes (%) (Auto) 7 0-12 % Eosinophils (%) (Auto) 2 0-10 % Basophils (%) (Auto) 1 0-10 % Neutrophils # (Auto) 4.6 1.8-7.8 X 10^3 Lymphocytes # (Auto) 4.0 1.0-4.0 X 10^3 Monocytes # (Auto) 0.7 0.0-1.0 X 10^3 Eosinophils # (Auto) 0.2 0.0-0.3 10^3/uL Basophils # (Auto) 0.1 0.0-0.1 10^3/uL Sodium Level 141 135-145 MMOL/L Potassium Level 3.7 3.6-5.0 MMOL/L Chloride Level 107 98-107 MMOL/L Carbon Dioxide Level 21 21-32 MMOL/L Anion Gap 13 5-14 MMOL/L Blood Urea Nitrogen 10 7-18 MG/DL Creatinine 0.79 0.60-1.30 MG/DL Estimat Glomerular Filtration Rate > 60 BUN/Creatinine Ratio 13 Glucose Level 90 70-105 MG/DL Calcium Level 9.6 8.5-10.1 MG/DL Corrected Calcium 9.4 8.5-10.1 MG/DL Total Bilirubin 0.6 0.1-1.0 MG/DL Aspartate Amino Transf (AST/SGOT) 32 5-34 U/L Alanine Aminotransferase (ALT/SGPT) 36 0-55 U/L Alkaline Phosphatase 95 40-136 U/L Total Protein 7.5 6.4-8.2 GM/DL Albumin 4.2 3.2-4.5 GM/DL My Orders Orders - KOSTA DUMAS MD Cbc With Automated Diff (08/10/18 02:27) Comprehensive Metabolic Panel (08/10/18 02:27) Hydrocodone/Apap 5/325 Tablet (Lortab 5 (08/10/18 02:27) Zinc Oxide 40% Oint 28gm (Desitin Ointme (08/10/18 02:31) Medications Given in ED Current Medications Medications Dose Ordered Sig/Maiet Route Start Time Stop Time Status Last Admin Dose Admin Zinc Oxide 30 gm STK-MED ONCE .ROUTE 08/10/18 02:31 08/10/18 02:32 DC 08/10/18 02:41 30 GM Vital Signs/I&O 08/10/18 02:15 Temp 99.0 Pulse 73 Resp 16 B/P (MAP) 120/81 (94) Pulse Ox 98 O2 Delivery Room Air Blood Pressure Mean: 94 Fecal Occult: Positive Progress Progress Note : Progress Note Seen and evaluated. Hydrocodone 5/325 one tab by mouth for pain and also hopefully decreased bowel movement. We will apply Desitin to the wound. Hemoccult was positive. We will check basic labs. Monitor patient. 0350: Labs reviewed and showed no significant abnormalities. Better with Desitin. Discharged home with return precautions. Patient verbalize understanding instructions and agreement with plan. Departure Impression Primary Impression: Skin ulcer of buttock, limited to breakdown of skin Additional Impression: Diarrhea Qualified Codes: R19.7 - Diarrhea, unspecified Disposition: HOME, SELF-CARE Condition: Improved Departure-Patient Inst. Decision time for Depature: 03:53 Referrals: LAKHWINDER POSADAS APRN (PCP/Family) Primary Care Physician Patient Instructions: Diarrhea in Adolescents and Adults Add. Discharge Instructions: All discharge instructions reviewed with patient and/or family. Voiced understanding. Use Desitin or similar product to skin breakdown on buttocks. Take medications as directed. Follow-up with your DrGrant in a few days for recheck. Return for worse pain, fever, vomiting, weakness, breathing problems or other concerns as needed. Scripts Hydrocodone Bit/Acetaminophen (Hydrocodone/Acetaminophen 5/325mg Tablet) 1 Tab Tab 1 EACH PO Q4-6HR PRN for PAIN-MODERATE MDD 10, #8 TAB 0 Refills Prov: KOSTA DUMAS MD 08/10/18 Work/School Note: Work Release Form Date Seen in the Emergency Department: Aug 10, 2018 Return to Work: Aug 11, 2018 Restrictions: No Restrictions KOSTA DUMAS MD Aug 10, 2018 02:35
[2018-08-10 03:09] LABS: BASOPHILS # (AUTO) 0.1 10^3/uL (0.0-0.1); BASOPHILS % (AUTO) 1 % (0-10); EOSINOPHILS # (AUTO) 0.2 10^3/uL (0.0-0.3); EOSINOPHILS % (AUTO) 2 % (0-10); HEMATOCRIT 39 % (35-52); HEMOGLOBIN 13.4 G/DL (11.5-16.0); LYMPHOCYTES % (AUTO) 42 % (12-44); MEAN CORPUSCULAR HEMOGLOBIN 32 PG (25-34); MEAN CORPUSCULAR HGB CONC 34 G/DL (32-36); MEAN CORPUSCULAR VOLUME 94 FL (80-99); MEAN PLATELET VOLUME 9.6 FL (7.4-10.4); MONOCYTES # (AUTO) 0.7 X 10^3 (0.0-1.0); MONOCYTES % (AUTO) 7 % (0-12); NEUTROPHILS # (AUTO) 4.6 X 10^3 (1.8-7.8); NEUTROPHILS % (AUTO) 48 % (42-75); PLATELET COUNT 327 10^3/uL (130-400); RED BLOOD COUNT 4.19 10^6/uL (4.35-5.85); RED CELL DISTRIBUTION WIDTH 14.5 % (10.0-14.5); WHITE BLOOD COUNT 9.5 10^3/uL (4.3-11.0)
[2018-08-10 03:34] LABS: ALANINE AMINOTRANSFERASE 36 U/L (0-55); ALBUMIN 4.2 GM/DL (3.2-4.5); ALKALINE PHOSPHATASE 95 U/L (40-136); BILIRUBIN,TOTAL 0.6 MG/DL (0.1-1.0); BUN/CREATININE RATIO 13; CALCIUM 9.6 MG/DL (8.5-10.1); CARBON DIOXIDE 21 MMOL/L (21-32); CHLORIDE 107 MMOL/L (98-107); CREATININE SERUM 0.79 MG/DL (0.60-1.30); GFR ESTIMATED > 60; GLUCOSE 90 MG/DL (70-105); POTASSIUM 3.7 MMOL/L (3.6-5.0); SODIUM 141 MMOL/L (135-145); TOTAL PROTEIN 7.5 GM/DL (6.4-8.2)
[2018-08-10] MEDS ORDERED: ACHD5005 PO (03:54)
[2018-08-10 04:03] VITALS: BP 120/81
== END 2018-08-10 04:04 | disposition home or self-care (01) ==
LOC: EDUNIT# 01:43 → ER 01:44
DX: L98.411 Non-pressure chronic ulcer of buttock limited to breakdown of skin (principal); R19.7 Diarrhea, unspecified; D68.51 Activated protein C resistance; F41.9 Anxiety disorder, unspecified; F32.9 Major depressive disorder, single episode, unspecified; Z88.2 Allergy status to sulfonamides; Z87.19 Personal history of other diseases of the digestive system; Z79.52 Long term (current) use of systemic steroids; Z90.49 Acquired absence of other specified parts of digestive tract
CPT/HCPCS: 36415; 80053; 85025

== ENCOUNTER 2018-10-30 23:51 | Emergency (ER) | payer OTHER ==
[~2018-10-30] VITALS: Ht 172.7 cm; Wt 102.1 kg
[~2018-10-30 23:51] MED LIST changes: +ACHD5005 PO
--- OUTSIDE RECORDS SUMMARY | 2018-10-30 23:56 | XMS REPORT ---
Author Author LAKHWINDER POSADAS [facility] Address [address] [place] [address] Care Team Providers Care Faculty Research Physician Name Role Phone LAKHWINDER POSADAS Unavailable PROBLEMS Type Condition ICD9-CM Code YAD12-AQ Code Onset Dates Condition Status SNOMED Code Problem Factor V Leiden D68.51 Active 901890561 Problem Intestinal malabsorption, unspecified K90.9 Active 03278013 Problem Irregular menstrual bleeding N92.6 Active 15401794 Problem Recurrent major depressive disorder, in full remission F33.42 Active 943709255 Problem Factor V Leiden mutation D68.51 Active 913147657 Problem 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89 ; Well woman exam Z01.419 ; Encounter for Depo-Provera contraception Z30.42 ; Encounter for other contraceptive management Z30.8 and Recurrent major depressive disorder, in full remission F33.42 [facility] [address] [facility] [id number] [place] [address] Aug, [facility] [address] [id number] [place] [address] Jul [facility] [address] [id number] [place] [address] Jul [facility] [address] [id number] [place] [address] Jul Irritable bowel syndrome with diarrhea K58.0 [facility] [address] [id number] [place] [address] Jun Irritable bowel syndrome with diarrhea K58.0 [facility] [address] [id number] [place] [address] Jun Irritable bowel syndrome with diarrhea K58.0 [facility] [address] [id number] [place] [address] Jun [facility] [address] [id number] [place] [address] Jun Irritable bowel syndrome with diarrhea K58.0 [facility] [address] [id number] [place] [address] Jun [facility] [address] [id number] [place] [address] May Acute nasopharyngitis J00 ; Encounter for other contraceptive management Z30.8 ; Encounter for Depo-Provera contraception Z30.42 and BMI 45.0- 49.9, adult Z68.[address] [id number] [place] [id number] Apr, [facility] [address] [id number] [place] [address] Apr [facility] [address] [id number] [place] [address] Apr Factor V Leiden D68.51 [facility] [address] [id number] [place] [address] Apr Irritable bowel syndrome with diarrhea K58.0 ; Nausea R11.0 ; 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 ; Irregular menstrual bleeding N92.6 and BMI 45.0- 49.9, adult Z68.42 [facility] [address] [id number] [place] [address] 27 Feb Well woman exam with routine gynecological exam Z01.419 ; Screening for STDs (sexually transmitted diseases) Z11.3 ; BMI 45.0-49.9, adult Z68.42 and Vaginal itching N89.8 [facility] [place] [address] [id number] [place] [address] 19 Feb control counseling Z30.09 and BMI 45.0-49.9, adult Z68.42 [facility] [place] [address] [id number] [place] [address] 13 Feb [facility] [place] [address] [id number] [place] [address] Feb [facility] [address] [id number] [place] [address] Feb [facility] [place] [address] [id number] [place] [address] January Recurrent major depressive disorder, in full remission F33.42 ; Nausea R11.0 ; Occipital lymphadenopathy R59.0 and BMI 45.0-49.9, adult Z68.42 [facility] [place] [address] [id number] [place] [address] January Irritable bowel syndrome with diarrhea K58.0 [facility] [place] [address] [id number] [place] [address] January [facility] [place] [address] [id number] [place] [address] January Irritable bowel syndrome with diarrhea K58.0 ; Factor V Leiden D68.51 ; Perirectal skin irritation K62.89 ; Recurrent major depressive disorder, in full remission F33.42 and BMI 45.0-49.9, adult Z68.42 IMMUNIZATIONS No Known Immunizations SOCIAL HISTORY Never Assessed REASON FOR VISIT Need script PLAN OF CARE VITAL SIGNS MEDICATIONS Unknown Medications RESULTS No Results PROCEDURES No Known procedures INSTRUCTIONS MEDICATIONS ADMINISTERED No Known Medications MEDICAL (GENERAL) HISTORY Type Description Date Medical History depression Medical History short bowel Medical History insomnia Surgical History small bowel resection X 2 2017 Hospitalization History surgery Hospitalization History Rectal bleeding
--- OUTSIDE RECORDS SUMMARY | 2018-10-30 23:57 | XMS REPORT ---
Author Author LAKHWINDER POSADAS [facility] Address [address] [place] [address] Care Team Providers Care Concreting Supervisor Name Role Phone LAKHWINDER POSADAS Unavailable PROBLEMS Type Condition ICD9-CM Code VBH73-LQ Code Onset Dates Condition Status SNOMED Code Problem Factor V Leiden D68.51 Active 012743372 Problem Intestinal malabsorption, unspecified K90.9 Active 18681161 Problem Irregular menstrual bleeding N92.6 Active 77278229 Problem Recurrent major depressive disorder, in full remission F33.42 Active 189652842 Problem Factor V Leiden mutation D68.51 Active 039811579 Problem 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 371190907 Problem Irritable bowel syndrome with diarrhea K58.0 Active 453804176 ALLERGIES Substance Reaction Event Type Date Status Sulfa drugs Rash Non Drug Allergy Aug, Active ENCOUNTERS Encounter Location Date Diagnosis [facility] [address] [id number] [place] [address] Aug Recurrent major depressive disorder, in full remission F33.42 [facility] [address] [id number] [place] [address] Aug BMI 45.0-49.9, adult Z68.42 ; Irritable bowel syndrome with diarrhea K58.0 ; Perirectal skin irritation K62.89 ; Well woman exam Z01.419 ; Encounter for Depo-Provera contraception Z30.42 ; Encounter for other contraceptive management Z30.8 and Recurrent major depressive disorder, in full remission F33.42 [facility] [address] [facility] [id number] [place] [address] Aug, [facility] [address] [id number] [place] [address] Jul [facility] [address] [id number] [place] [address] Jul [facility] [address] [id number] [place] [address] Jul Irritable bowel syndrome with diarrhea K58.0 [facility] [address] [id number] [place] [address] Jun Irritable bowel syndrome with diarrhea K58.0 [facility] [address] [id number] [place] [address] Jun Irritable bowel syndrome with diarrhea K58.0 [facility] [address] [id number] [place] [address] Jun [facility] [address] [id number] [place] [address] Jun Irritable bowel syndrome with diarrhea K58.0 [facility] [address] [id number] [place] [address] Jun [facility] [address] [id number] [place] [address] May Acute nasopharyngitis J00 ; Encounter for other contraceptive management Z30.8 ; Encounter for Depo-Provera contraception Z30.42 and BMI 45.0- 49.9, adult Z68.42 [facility] [address] [facility] [id number] [place] [id number] Apr, [facility] [address] [id number] [place] [address] Apr [facility] [address] [id number] [place] [address] Apr Factor V Leiden D68.51 [facility] [address] [id number] [place] [address] Apr Irritable bowel syndrome with diarrhea K58.0 ; Nausea R11.0 ; 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 ; Irregular menstrual bleeding N92.6 and BMI 45.0- 49.9, adult Z68.42 [facility] [address] [id number] [place] [address] Feb Well woman exam with routine gynecological exam Z01.419 ; Screening for STDs (sexually transmitted diseases) Z11.3 ; BMI 45.0-49.9, adult Z68.42 and Vaginal itching N89.8 [facility] [address] [id number] [place] [address] 19 Feb control counseling Z30.09 and BMI 45.0-49.9, adult Z68.42 [facility] [address] [id number] [place] [address] 13 Feb [facility] [address] [id number] [place] [address] Feb [facility] [employer] [id number] [place] [address] Feb [facility] [place] [address] [id number] [place] [address] January Recurrent major depressive disorder, in full remission F33.42 ; Nausea R11.0 ; Occipital lymphadenopathy R59.0 and BMI 45.0-49.9, adult Z68.42 [facility] [address] [id number] [place] [address] January Irritable bowel syndrome with diarrhea K58.0 [facility] [address] [id number] [place] [address] January [facility] [address] [id number] [place] [address] January Irritable bowel syndrome with diarrhea K58.0 ; Factor V Leiden D68.51 ; Perirectal skin irritation K62.89 ; Recurrent major depressive disorder, in full remission F33.42 and BMI 45.0-49.9, adult Z68.42 IMMUNIZATIONS Vaccine Route Administration Date Status DEPO PROVERA (150 MG/ML) IM Intramuscular Aug 14, 2018 Administered SOCIAL HISTORY Never Assessed REASON FOR VISIT C/o vibryzi on back order and has alot of stomach problems. , pt needs depo- injection. Pt last pap unsatifactory. GURPREET Nicholson PLAN OF CARE Activity Details Follow Up prn Reason: Pending Test PAP REFLEX TO HPV IF ASCUS VITAL SIGNS Height 66 in 2018-08-14 Weight 297 lbs 2018-08-14 Temperature 98.6 degrees Fahrenheit 2018-08-14 Heart Rate 63 bpm 2018-08-14 Respiratory Rate 18 2018-08-14 Oximetry 98 % 2018-08-14 BMI 47.93 kg/m2 2018-08-14 Blood pressure systolic 110 mmHg 2018-08-14 Blood pressure diastolic 70 mmHg 2018-08-14 MEDICATIONS Medication Instructions Dosage Frequency Start Date End Date Duration Status Questran 4 GM/DOSE Orally Twice a day 1 scoop 12h Aug, 30 day(s ) Active Viberzi 75 MG Orally Twice a day 1 tablet with food 12h 90 days Active Lomotil 2.5-0.025 MG Orally 3 times a day 1 tablet as needed 8h Aug, 10 days Active Citalopram Hydrobromide 40 MG Orally Once a day 1 tablet 24h 30 Active Trazodone HCl 50 MG Orally Once a day 1 tablet at bedtime 24h 30 Active Ondansetron HCl 4 MG Orally TID PRN 1 tablet Apr, 10 days Active Eliquis 5 mg Orally 2 times a day 1 tablet 12h Active Dicyclomine HCl 20 mg Orally 3 times a day 1 tablet 8h Aug, 30 day(s) Active Depo-Provera 150 MG/ML Intramuscular every 12 weeks 1 ml May, May, 365 days Active RESULTS No Results PROCEDURES Procedure Date Ordered Result Body Site SPECIMEN HANDLING Aug 14, 2018 THER/PROPH/DIAG INJ, SC/IM Aug 14, 2018 DEPO PROVERA (150 MG/ML) Aug 14, 2018 INSTRUCTIONS MEDICATIONS ADMINISTERED No Known Medications MEDICAL (GENERAL) HISTORY Type Description Date Medical History depression Medical History short bowel Medical History insomnia Surgical History small bowel resection X 2 2017 Hospitalization History surgery Hospitalization History Rectal bleeding
--- OUTSIDE RECORDS SUMMARY | 2018-10-30 23:57 | XMS REPORT ---
Author Author LAKHWINDER POSADAS [facility] Address [address] [place] [address] Care Team Providers Care Building Rigger Name Role Phone LAKHWINDER POSADAS Unavailable PROBLEMS Type Condition ICD9-CM Code IIS99-EP Code Onset Dates Condition Status SNOMED Code Problem Factor V Leiden D68.51 Active 067559709 Problem Intestinal malabsorption, unspecified K90.9 Active 86187955 Problem Irregular menstrual bleeding N92.6 Active 17505582 Problem Recurrent major depressive disorder, in full remission F33.42 Active 579479840 Problem Factor V Leiden mutation D68.51 Active 530464608 Problem 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 184193513 Problem Irritable bowel syndrome with diarrhea K58.0 Active 253616673 ALLERGIES No Information ENCOUNTERS Encounter Location Date Diagnosis [facility] [address] [id number] [place] [address] Aug [facility] [address] [facility] [id number] [place] [address] Aug, [facility] [address] [id number] [place] [address] Jul [facility] [address] [id number] [place] [address] Jul [facility] [address] [id number] [place] [address] Jul Irritable bowel syndrome with diarrhea K58.0 [facility] [address] [id number] [place] [address] Jun Irritable bowel syndrome with diarrhea K58.0 [facility] [address] [id number] [place] [address] Jun Irritable bowel syndrome with diarrhea K58.0 [facility] [address] [id number] [place] [address] 12 Jun [facility] [address] [id number] [place] [address] Jun Irritable bowel syndrome with diarrhea K58.0 [facility] [address] [id number] [place] [address] Jun [facility] [address] [id number] [place] [address] May Acute nasopharyngitis J00 ; Encounter for other contraceptive management Z30.8 ; Encounter for Depo-Provera contraception Z30.42 and BMI 45.0- 49.9, adult Z68.42 [facility] [place] [address] [id number] [place] [id number] Apr, [facility] [address] [id number] [place] [address] Apr [facility] [address] [id number] [place] [address] Apr Factor V Leiden D68.51 [facility] [address] [id number] [place] [address] Apr Irritable bowel syndrome with diarrhea K58.0 ; Nausea R11.0 ; 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 ; Irregular menstrual bleeding N92.6 and BMI 45.0- 49.9, adult Z68.42 [facility] [address] [id number] [place] [address] 27 Feb Well woman exam with routine gynecological exam Z01.419 ; Screening for STDs (sexually transmitted diseases) Z11.3 ; BMI 45.0-49.9, adult Z68.42 and Vaginal itching N89.8 [facility] [address] [id number] [place] [address] 19 Feb control counseling Z30.09 and BMI 45.0-49.9, adult Z68.42 [facility] [address] [id number] [place] [address] 13 Feb [facility] [address] [id number] [place] [address] Feb [facility] [address] [id number] [place] [address] Feb [facility] [address] [id number] [place] [address] January Recurrent major depressive disorder, in full remission F33.42 ; Nausea R11.0 ; Occipital lymphadenopathy R59.0 and BMI 45.0-49.9, adult Z68.42 [facility] [address] [id number] [place] [address] January Irritable bowel syndrome with diarrhea K58.0 [facility] [address] [id number] [place] [address] January [facility] [address] [id number] [place] [address] January Irritable bowel syndrome with diarrhea K58.0 ; Factor V Leiden D68.51 ; Perirectal skin irritation K62.89 ; Recurrent major depressive disorder, in full remission F33.42 and BMI 45.0-49.9, adult Z68.42 IMMUNIZATIONS No Known Immunizations SOCIAL HISTORY Never Assessed REASON FOR VISIT Requests return call PLAN OF CARE VITAL SIGNS MEDICATIONS Medication Instructions Dosage Frequency Start Date End Date Duration Status Lomotil 2.5-0.025 MG Orally 3 times a day 1 tablet as needed 8h Aug, 10 days Active Dicyclomine HCl 20 mg Orally 3 times a day 1 tablet 8h Aug, 30 day(s) Active RESULTS No Results PROCEDURES No Known procedures INSTRUCTIONS MEDICATIONS ADMINISTERED No Known Medications MEDICAL (GENERAL) HISTORY Type Description Date Medical History depression Medical History short bowel Medical History insomnia Surgical History small bowel resection X 2 2017 Hospitalization History surgery Hospitalization History Rectal bleeding
--- OUTSIDE RECORDS SUMMARY | 2018-10-30 23:57 | XMS REPORT ---
Author Author LAKHWINDER POSADAS [facility] Address [address] [place] [address] Care Team Providers Care Barrel Assembly Inspector Name Role Phone LAKHWINDER POSADAS Unavailable PROBLEMS Type Condition ICD9-CM Code IVH90-FK Code Onset Dates Condition Status SNOMED Code Problem Factor V Leiden D68.51 Active 618381545 Problem Intestinal malabsorption, unspecified K90.9 Active 36770768 Problem Irregular menstrual bleeding N92.6 Active 73601722 Problem Recurrent major depressive disorder, in full remission F33.42 Active 702948216 Problem Factor V Leiden mutation D68.51 Active 660921989 Problem 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 049526443 Problem Irritable bowel syndrome with diarrhea K58.0 Active 756683143 ALLERGIES No Information ENCOUNTERS Encounter Location Date Diagnosis [facility] [address] [id number] [place] [address] Aug Recurrent major depressive disorder, in full remission F33.42 [facility] [address] [id number] [place] [address] Aug BMI 45.0-49.9, adult Z68.42 ; Irritable bowel syndrome with diarrhea K58.0 ; Perirectal skin irritation K62.89 ; Well woman exam Z01.419 ; Encounter for Depo-Provera contraception Z30.42 ; Encounter for other contraceptive management Z30.8 and Recurrent major depressive disorder, in full remission F33.42 [facility] [address] [facility] [id number] [place] [address] Aug, [facility] [address] [id number] [place] [address] Jul [facility] [address] [id number] [place] [address] Jul [facility] [address] [id number] [place] [address] Jul Irritable bowel syndrome with diarrhea K58.0 [facility] [address] [id number] [place] [address] Jun Irritable bowel syndrome with diarrhea K58.0 [facility] [address] [id number] [place] [address] Jun Irritable bowel syndrome with diarrhea K58.0 [facility] [address] [id number] [place] [address] Jun [facility] [address] [id number] [place] [address] Jun Irritable bowel syndrome with diarrhea K58.0 [facility] [address] [id number] [place] [address] Jun [facility] [address] [id number] [place] [address] May Acute nasopharyngitis J00 ; Encounter for other contraceptive management Z30.8 ; Encounter for Depo-Provera contraception Z30.42 and BMI 45.0- 49.9, adult Z68.42 [facility] [place] [address] [facility] [id number] [place] [id number] Apr, [facility] [address] [id number] [place] [address] Apr [facility] [address] [id number] [place] [address] Apr Factor V Leiden D68.51 [facility] [address] [id number] [place] [address] Apr Irritable bowel syndrome with diarrhea K58.0 ; Nausea R11.0 ; 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 ; Irregular menstrual bleeding N92.6 and BMI 45.0- 49.9, adult Z68.42 [facility] [address] [id number] [place] [address] Feb 2018 Well woman exam with routine gynecological exam Z01.419 ; Screening for STDs (sexually transmitted diseases) Z11.3 ; BMI 45.0-49.9, adult Z68.42 and Vaginal itching N89.8 [facility] [address] [id number] [place] [address] 19 Feb control counseling Z30.09 and BMI 45.0-49.9, adult Z68.42 [facility]ITAL[facility]riaLex[facility] [address] [id number] [place] [address] 13 Feb [facility] [address] [id number] [place] [address] Feb [facility] [address] [id number] [place] [address] Feb [facility] [address] [id number] [place] [address] January Recurrent major depressive disorder, in full remission F33.42 ; Nausea R11.0 ; Occipital lymphadenopathy R59.0 and BMI 45.0-49.9, adult Z68.42 [facility] [address] [id number] [place] [address] January Irritable bowel syndrome with diarrhea K58.0 [facility] [address] [id number] [place] [address] January [facility] [address] [id number] [place] [address] January Irritable bowel syndrome with diarrhea K58.0 ; Factor V Leiden D68.51 ; Perirectal skin irritation K62.89 ; Recurrent major depressive disorder, in full remission F33.42 and BMI 45.0-49.9, adult Z68.42 IMMUNIZATIONS No Known Immunizations SOCIAL HISTORY Never Assessed REASON FOR VISIT clarification PLAN OF CARE VITAL SIGNS MEDICATIONS Medication Instructions Dosage Frequency Start Date End Date Duration Status Trazodone HCl 50 mg Orally Once a day 1 tablet at bedtime 24h 90 days Active RESULTS No Results PROCEDURES No Known procedures INSTRUCTIONS MEDICATIONS ADMINISTERED No Known Medications MEDICAL (GENERAL) HISTORY Type Description Date Medical History depression Medical History short bowel Medical History insomnia Surgical History small bowel resection X 2 2017 Hospitalization History surgery Hospitalization History Rectal bleeding
--- OUTSIDE RECORDS SUMMARY | 2018-10-30 23:59 | XMS REPORT | Continuity of Care Document ---
Author Author [facility] Organization [facility] Address Unknown Phone Unavailable Allergies Active Description Code Type Severity Reaction Onset Reported/Identified Relationship to Patient Clinical Status Yes Sulfa (Sulfonamide Antibiotics) [id number] Drug Allergy Unknown N/A 2017 Medications There [...] STATUS TO SULFONAMIDES STATUS 07/04/2018 MEAGAN CARDOZO MD Ot Z90.49 ACQUIRED ABSENCE OF OTHER SPECIFIED PART 08/14/2018 KOSTA DUMAS MD, Ot D68.51 ACTIVATED PROTEIN C RESISTANCE 08/14/2018 KOSTA DUMAS MD, Ot F32.9 MAJOR DEPRESSIVE DISORDER, SINGLE EPISOD 08/14/2018 KOSTA DUMAS MD, Ot F41.9 ANXIETY DISORDER, UNSPECIFIED 08/14/2018 KOSTA DUMAS MD, Ot 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 Results Test Result Range TSH - 01/18/18 15:28 TSH 0.90 mIU/L [facility] SUREPATH PAP RFX HPV mRNA E6/E7 - 03/01/18 18:35 CLINICAL INFORMATION: NR LMP: NRG PREV. PAP: NRG PREV. BX: NRG SOURCE: NR STATEMENT OF ADEQUACY: NR INTERPRETATION/RESULT: [facility] FLOTATION TENDER HELPER: [facility] REVIEW FLOTATION TENDER HELPER: NR COMMENT NRG CULTURE, GENITAL - 03/01/18 19:00 [...] - 03/16/18 21:00 Magnesium 2.0 mg/dL 1.8-2.4 Complete blood count (CBC) with automated white blood cell (WBC) differential - 08/10/18 03:04 Blood leukocytes automated count (number/volume) 9.5 10*3/uL 4.3-11.0 Blood erythrocytes automated count (number/volume) 4.19 10*6/uL 4.35-5.85 Venous blood hemoglobin measurement (mass/volume) 13.4 g/dL 11.5-16.0 Blood hematocrit (volume fraction) 39 % 35-52 Automated erythrocyte mean corpuscular volume 94 [foz_us] 80-99 Automated erythrocyte mean corpuscular hemoglobin (mass per erythrocyte) 32 pg 25-34 Automated erythrocyte mean corpuscular hemoglobin concentration measurement ( mass/volume) 34 g/dL 32-36 Automated erythrocyte distribution width ratio 14.5 % 10.0-14.5 Automated blood platelet count (count/volume) 327 10*3/uL 130-400 Automated blood platelet mean volume measurement 9.6 [foz_us] 7.4-10.4 Automated blood neutrophils/100 leukocytes 48 % 42-75 Automated blood lymphocytes/100 leukocytes 42 % 12-44 Blood monocytes/100 leukocytes 7 % 0-12 Automated blood eosinophils/100 leukocytes 2 % 0-10 Automated blood basophils/100 leukocytes 1 % 0-10 Blood neutrophils automated count (number/volume) 4.6 10*3 1.8-7.8 Blood lymphocytes automated count (number/volume) 4.0 10*3 1.0-4.0 Blood monocytes automated count (number/volume) 0.7 10*3 0.0-1.0 Automated eosinophil count 0.2 10*3/uL 0.0-0.3 Automated blood basophil count (count/volume) 0.1 10*3/uL 0.0-0.1 Comprehensive metabolic panel - 08/10/18 03:04 Serum or plasma sodium measurement (moles/volume) 141 mmol/L 135-145 Serum or plasma potassium measurement (moles/volume) 3.7 mmol/L 3.6-5.0 Serum or plasma chloride measurement (moles/volume) 107 mmol/L 98-107 Carbon dioxide 21 mmol/L 21-32 Serum or plasma anion gap determination (moles/volume) 13 mmol/L 5-14 Serum or plasma urea nitrogen measurement (mass/volume) 10 mg/dL 7-18 Serum or plasma creatinine measurement (mass/volume) 0.79 mg/dL 0.60-1.30 Serum or plasma urea nitrogen/creatinine mass ratio 13 NRG Serum or plasma creatinine measurement with calculation of estimated glomerular filtration rate > NRG Serum or plasma glucose measurement (mass/volume) 90 mg/dL 70-105 Serum or plasma calcium measurement (mass/volume) 9.6 mg/dL 8.5-10.1 Serum or plasma total bilirubin measurement (mass/volume) 0.6 mg/dL 0.1-1.0 Serum or plasma alkaline phosphatase measurement (enzymatic activity/volume) 95 U/L 40-136 Serum or plasma aspartate aminotransferase measurement (enzymatic activity/ volume) 32 U/L 5-34 Serum or plasma alanine aminotransferase measurement (enzymatic activity/volume ) 36 U/L 0-55 Serum or plasma protein measurement (mass/volume) 7.5 g/dL 6.4-8.2 Serum or plasma albumin measurement (mass/volume) 4.2 g/dL 3.2-4.5 CALCIUM CORRECTED 9.4 mg/dL 8.5-10.1 SUREPATH PAP RFX HPV mRNA E6/E7 - 08/14/18 16:43 CLINICAL INFORMATION: NRG LMP: NRG PREV. PAP: NRG PREV. BX: NONE NRG SOURCE: [facility]ervix NRG STATEMENT OF ADEQUACY: NRG INTERPRETATION/RESULT: NRG FLOTATION TENDER HELPER: NRG COMMENT NRG Encounters ACCT No. Visit Date/Time Discharge Status Pt. Type Provider Facility Loc./Unit Complaint [id number] 11/27/2013 15:01:43 11/27/2013 23:59:59 CLS Outpatient Dion Guevara [id number] 08/10/2018 01:44:00 08/10/2018 04:04:00 DIS Outpatient KOSTA DUMAS MD [facility] ER DIARRHEA,RECTAL BLEEDING [id number] 06/30/2018 00:50:00 06/30/2018 01:26:00 DIS Emergency MEAGAN CARDOZO MD [facility] ER RT ARM TSOK-[id number]-BDK NO INJURY [id number] 03/16/2018 20:28:00 03/16/2018 23:00:00 DIS Emergency SUDEEP MAY MD [facility] ER ABD ISSUES [id number] 10/30/2018 23:53:00 ACT Emergency MEAGAN CARDOZO MD [facility] ER BACK PAIN,ABD PAIN [id number] 10/27/2018 15:00:00 10/27/2018 23:59:59 CLS Outpatient [facility]AKHWINDER POSADAS [id number] 08/14/2018 14:00:00 Document Registration [id number] 03/01/2018 18:00:00 Document Registration [id number] 01/18/2018 15:00:00 Document Registration
[2018-10-31] MEDS ORDERED: NS IV 1000 ML 1,000 ML IV SCH (00:11)
[2018-10-31] MEDS ORDERED: ONDANSETRON 4 MG/2 ML (SDV) Z0FRAN IVP ONE (00:15)
[2018-10-31] MEDS ORDERED: fentaNYL INJECTION 100 MCG/2 ML AMP IVP ONE ×2 (00:15→01:30)
--- NOTE | 2018-10-31 00:25 | ED Back Pain ---
General Stated Complaint: BACK PAIN,ABD PAIN Source of Information: Patient, Other (roommate) Exam Limitations: No Limitations History of Present Illness Date Seen by Provider: Oct 31, 2018 Time Seen by Provider: 00:03 Initial Comments The patient presents to ER by private conveyance with her roommate and chief complaint she's having some right back and flank pain radiating down to her right lower quadrant abdomen. She has had a surgery to have part of her small intestine removed from a blood clot. She is with factor V Leiden on EliAIRVEND which she takes religiously. She takes Depo-Provera shots and her last one was August 14, 2018. Her last period was in May 2018. She denies dysuria, hematuria, discharge or history of kidney stones. She is afraid her pains been going on for the past 2 weeks that she might be developing a clot or something along those lines related to her factor V. She has IBS with chronic diarrhea for which she uses Viberzi. She's been nauseated for the past week or so using Zofran with minimal relief. She works at [employer] and was told by staff there that she might have a GI bug that was going around. They did shoot a KUB and told her that she had feces in her colon. They set her up for a CT scan outpatient but her pain was getting worse tonight so she decided to come get it checked out. She says at baseline is about a 4 out of 10 and then has episodes of sharp stabbing pain for a minute or 2 of a 7 out of 10. She's been using Tylenol thousand milligrams 2 or 3 times a day with minimal relief. No history of trauma or inciting event. Progressively gotten worse over the last 2 weeks. She's had no other intra-abdominal surgeries. Allergies and Home Medications Allergies Coded Allergies: Sulfa (Sulfonamide Antibiotics) (Verified Allergy, Unknown, 08/10/18) Patient Home Medication List Home Medication List Reviewed: Yes Review of Systems Constitutional: No chills, No weakness EENTM: No ear discharge, No ear pain, No eye pain Respiratory: No cough, No short of breath Cardiovascular: No chest pain, No edema Gastrointestinal: RLQ, see HPI, abdominal pain; No constipation; diarrhea, nausea; No vomiting Genitourinary: No discharge, No dysuria, No hematuria : No Control/STD Prophylaxis: Depo Provera Past Xidcecg-Cbvnub-Msamqw Hx Patient Social History Alcohol Use: Occasionally Uses Recreational Drug Use: No Smoking Status: Never a Smoker Recent Foreign Travel: No Contact w/Someone Who Travel: No Recent Hopitalizations: No Immunizations Up To Date Tetanus Booster (TDap): Unknown Seasonal Allergies Seasonal Allergies: No Past Medical History Surgeries: Yes (small bowel resection) Abdominal Respiratory: No Cardiac: Yes (Factor V Leiden causing mesenteric embolism, now anticoagulated) Neurological: No Reproductive Disorders: No Genitourinary: No Gastrointestinal: Yes (small intestine blood clot) Irritable Bowel Musculoskeletal: No Endocrine: No HEENT: No Cancer: No Psychosocial: Yes Anxiety, Depression Integumentary: No Blood Disorders: Yes (Factor V Leiden) Adverse Reaction/Blood Tranf: No Physical Exam Vital Signs Vital Signs - First Documented 10/31/18 00:00 Temp 98.4 Pulse 77 Resp 19 B/P (MAP) 147/107 (120) Capillary Refill : Height, Weight, BMI Height: 5'8.00" Weight: 195lbs. oz. 88.160887tl; BMI Method:Estimated General Appearance: No Apparent Distress, WD/WN, Anxious, Obese HEENT: Pharynx Normal, Moist Mucous Membranes Neck: Full Range of Motion, Normal Inspection, Non Tender Cardiovascular: Regular Rate, Rhythm, No Edema, Normal Peripheral Pulses Respiratory: Chest Non Tender, Lungs Clear, Normal Breath Sounds, No Accessory Muscle Use, No Respiratory Distress Peripheral Pulses: 2+ Radial Pulses (R), 2+ Radial Pulses (L) Gastrointestinal: Normal Bowel Sounds, Soft, Tenderness (suprapubic and umbilical mild. No mesenteric signs. No psoas signs. Negative for pain or rebound tenderness over McBurney's point) Back: Normal Inspection; No CVA Tenderness (L); CVA Tenderness (R), Vertebral Tenderness (lumbar spine midline) Extremity: Normal Capillary Refill, Non Tender, No Calf Tenderness Neurologic/Psychiatric: Alert, Oriented x3 Progress/Results/Core Measures Results/Orders Lab Results Laboratory Tests Test 10/31/18 00:25 10/31/18 00:30 10/31/18 00:55 Range/Units White Blood Count 9.1 4.3-11.0 10^3/uL Red Blood Count 4.35 4.35-5.85 10^6/uL Hemoglobin 13.5 11.5-16.0 G/DL Hematocrit 41 35-52 % Mean Corpuscular Volume 93 80-99 FL Mean Corpuscular Hemoglobin 31 25-34 PG Mean Corpuscular Hemoglobin Concent 33 32-36 G/DL Red Cell Distribution Width 13.8 10.0-14.5 % Platelet Count 356 130-400 10^3/uL Mean Platelet Volume 9.8 7.4-10.4 FL Neutrophils (%) (Auto) 57 42-75 % Lymphocytes (%) (Auto) 34 12-44 % Monocytes (%) (Auto) 6 0-12 % Eosinophils (%) (Auto) 3 0-10 % Basophils (%) (Auto) 0 0-10 % Neutrophils # (Auto) 5.2 1.8-7.8 X 10^3 Lymphocytes # (Auto) 3.1 1.0-4.0 X 10^3 Monocytes # (Auto) 0.5 0.0-1.0 X 10^3 Eosinophils # (Auto) 0.3 0.0-0.3 10^3/uL Basophils # (Auto) 0.0 0.0-0.1 10^3/uL Urine Color YELLOW Urine Clarity CLEAR Urine pH 6 5-9 Urine Specific [place] 1.025 H 1.016-1.022 Urine Protein NEGATIVE NEGATIVE Urine Glucose (UA) NEGATIVE NEGATIVE Urine Ketones NEGATIVE NEGATIVE Urine Nitrite NEGATIVE NEGATIVE Urine Bilirubin NEGATIVE NEGATIVE Urine Urobilinogen NORMAL NORMAL MG/DL Urine Leukocyte Esterase 3+ H NEGATIVE Urine RBC (Auto) 1+ H NEGATIVE Urine RBC 0-2 /HPF Urine WBC 2-5 /HPF Urine Squamous Epithelial Cells 25-50 H /HPF Urine Crystals NONE /LPF Urine Bacteria FEW H /HPF Urine Casts NONE /LPF Urine Mucus MODERATE H /LPF Urine Culture Indicated NO Urine Opiates Screen NEGATIVE NEGATIVE Urine Oxycodone Screen NEGATIVE NEGATIVE Urine Methadone Screen NEGATIVE NEGATIVE Urine Propoxyphene Screen NEGATIVE NEGATIVE Urine Barbiturates Screen NEGATIVE NEGATIVE Ur Tricyclic Antidepressants Screen NEGATIVE NEGATIVE Urine Phencyclidine Screen NEGATIVE NEGATIVE Urine Amphetamines Screen NEGATIVE NEGATIVE Urine Methamphetamines Screen NEGATIVE NEGATIVE Urine Benzodiazepines Screen POSITIVE H NEGATIVE Urine Cocaine Screen NEGATIVE NEGATIVE Urine Cannabinoids Screen NEGATIVE NEGATIVE D-Dimer 0.30 0.00-0.49 UG/ML Sodium Level 139 135-145 MMOL/L Potassium Level 3.9 3.6-5.0 MMOL/L Chloride Level 106 98-107 MMOL/L Carbon Dioxide Level 22 21-32 MMOL/L Anion Gap 11 5-14 MMOL/L Blood Urea Nitrogen 8 7-18 MG/DL Creatinine 0.98 0.60-1.30 MG/DL Estimat Glomerular Filtration Rate > 60 BUN/Creatinine Ratio 8 Glucose Level 82 70-105 MG/DL Lactic Acid Level 1.26 0.50-2.00 MMOL/L Calcium Level 9.8 8.5-10.1 MG/DL Corrected Calcium 9.6 8.5-10.1 MG/DL Magnesium Level 1.9 1.8-2.4 MG/DL Total Bilirubin 0.5 0.1-1.0 MG/DL Aspartate Amino Transf (AST/SGOT) 40 H 5-34 U/L Alanine Aminotransferase (ALT/SGPT) 37 0-55 U/L Alkaline Phosphatase 105 40-136 U/L C-Reactive Protein High Sensitivity 0.94 H 0.00-0.50 MG/DL Total Protein 7.7 6.4-8.2 GM/DL Albumin 4.2 3.2-4.5 GM/DL Lipase 35 8-78 U/L My Orders Orders - MEAGAN CARDOZO Cbc With Automated Diff (10/31/18 00:11) Comprehensive Metabolic Panel (10/31/18 00:11) Hs C Reactive Protein (10/31/18 00:11) Fibrin Degradation Products (10/31/18 00:11) Drug Screen Stat (Urine) (10/31/18 00:11) Lactic Acid Analyzer (10/31/18 00:11) Lipase (10/31/18 00:11) Magnesium (10/31/18 00:11) Ua Culture If Indicated (10/31/18 00:11) Saline Lock/Iv-Start (10/31/18 00:11) Ns Iv 1000 Ml (Sodium Chloride 0.9%) (10/31/18 00:11) Urine Bedside (10/31/18 00:11) Fentanyl Injection (Sublimaze Injection (10/31/18 00:15) Ondansetron Injection (Zofran Injectio (10/31/18 00:15) Fentanyl Injection (Sublimaze Injection (10/31/18 01:30) Ct Abd/Pelvis Wo(Kidney Stone) (10/31/18 01:29) Medications Given in ED Current Medications Medications Dose Ordered Sig/Maite Route Start Time Stop Time Status Last Admin Dose Admin Fentanyl Citrate 25 mcg ONCE ONCE IVP 10/31/18 00:15 10/31/18 00:19 DC 10/31/18 00:26 25 MCG Fentanyl Citrate 25 mcg ONCE ONCE IVP 10/31/18 01:30 10/31/18 01:31 DC 10/31/18 01:48 25 MCG Ondansetron HCl 8 mg ONCE ONCE IVP 10/31/18 00:15 10/31/18 00:19 DC 10/31/18 00:26 8 MG Vital Signs/I&O 10/31/18 00:00 Temp 98.4 Pulse 77 Resp 19 B/P (MAP) 147/107 (120) Progress Progress Note #1: Time: 01:19 Progress Note Plan to get some urine and blood work. Her abdomen is not surgically acute. We' ll check a d-dimer is negative can rule out risk of clots. We will think about kidney stones versus colitis. Her diarrhea is chronic. Progress Note #2: Time: 01:32 Progress Note Patient's pain has gone up to about a 7-8. It is crampy and intermittent in nature. Her pain is still on her right back. Her urine does not reveal any blood but there still could be a kidney stone. We've opted to do a noncontrast CT and give her another 25 g of fentanyl. The last dose worked very well for her. She's not having any nausea right now. Negative d-dimer and negative lactate would rule out any chance of necrotic bowel or thrombosis. A viral colitis could also explain her symptoms. Since she's already used having diarrhea she may not notice an increase in her diarrhea. Bedside was negative. Progress Note #3: Time: 03:02 Progress Note The patient has nonspecific mesenteric stranding which could be related to infectious colitis versus inflammatory bowel disease. She doesn't history of IBS. Her d-dimer is negative and her lactate is negative so mesenteric ischemia or a clot seems very unlikely. We did offer her to do a CT scan with contrast to completely rule this out versus conservative care and she would prefer not to do the CT tonight. She can follow-up with her primary care tomorrow. She works at the doctor's office. She lives just a couple blocks away from the ER. We'll put her on some antibiotics, pain meds, nausea medicines and she has a roommate who would be staying with her. Diagnostic Imaging Diagonstic Imaging: CT (noncontrast kidney stone) Plain Films/CT/US/NM/MRI: abdomen, pelvis Comments Appendix is normal. Fatty infiltration of the colonic wall possibly related to obesity versus prior or chronic inflammatory bowel process. Nonspecific mesenteric stranding along the right mid to lower portion of the abdomen. Evaluation is limited due to lack of contrast. Reviewed: Reviewed by Me Departure Impression Primary Impression: Colitis Disposition: 01 HOME, SELF-CARE Condition: Stable Departure-Patient Inst. Decision time for Depature: 03:04 Referrals: EYAL HARDING ERIN R APRN (PCP) Primary Care Physician Patient Instructions: [id number] Add. Discharge Instructions: I suspect you have a infection in your colon and since it has been going on for more than a week we are going to treat you with some antibiotics. Stick to a liquid diet and advance towards bland, starchy foods such as bananas , rice, applesauce or toast. Ciprofloxacin 500 mg twice daily for 3 days. Drink lots of fluids especially sports drinks. Follow-up with primary care in the next 1-2 days. If you have pain you may use Tylenol 1000 mg every 8 hours in addition to ibuprofen 800 mg every 8 hours. You may also use heat, rest or distraction. If you still have severe breakthrough pain you can use one tablet of hydrocodone every 6 hours as needed. Hydrocodone will cause drowsiness. Do not mix with alcohol. You may also follow-up with the general surgeon Dr. Harding by calling his office and requesting an appointment if necessary. If you have nausea or vomiting you may take one tablet of Zofran every 6 hours as needed. Scripts Fluconazole (Fluconazole) 200 Mg Tablet 200 MG PO ONCE for 1 Day, #1 TAB 0 Refills Prov: MEAGAN CARDOZO 10/31/18 Hydrocodone Bit/Acetaminophen (Hydrocodone/Acetaminophen 5/325mg Tablet) 1 Tab Tab 1 EACH PO Q4-6HR PRN for PAIN-MODERATE MDD 10 for 5 Days, #10 TAB 0 Refills Prov: MEAGAN CARDOZO 10/31/18 Ondansetron (Ondansetron Odt) 4 Mg Tab.rapdis 4 MG PO Q6H PRN for NAUSEA/VOMITING, #8 TAB 0 Refills Prov: MEAGAN CARDOZO 10/31/18 Ciprofloxacin/Ciprofloxa HCl (Ciprofloxacin ER 500 mg Tablet) 500 Mg Tbmp.24hr 500 MG PO BID for 3 Days, #6 EA 0 Refills Prov: MEAGAN CARDOZO 10/31/18 Work/School Note: Work Release Form Date Seen in the Emergency Department: Oct 31, 2018 Return to Work: Nov 02, 2018 Restrictions: No Restrictions MEAGAN CARDOZO Oct 31, 2018 00:25
[2018-10-31 00:39] LABS: BASOPHILS % (AUTO) 0 % (0-10); EOSINOPHILS # (AUTO) 0.3 10^3/uL (0.0-0.3); EOSINOPHILS % (AUTO) 3 % (0-10); HEMATOCRIT 41 % (35-52); HEMOGLOBIN 13.5 G/DL (11.5-16.0); LYMPHOCYTES # (AUTO) 3.1 X 10^3 (1.0-4.0); LYMPHOCYTES % (AUTO) 34 % (12-44); MEAN CORPUSCULAR HEMOGLOBIN 31 PG (25-34); MEAN CORPUSCULAR HGB CONC 33 G/DL (32-36); MEAN CORPUSCULAR VOLUME 93 FL (80-99); MEAN PLATELET VOLUME 9.8 FL (7.4-10.4); MONOCYTES # (AUTO) 0.5 X 10^3 (0.0-1.0); MONOCYTES % (AUTO) 6 % (0-12); NEUTROPHILS # (AUTO) 5.2 X 10^3 (1.8-7.8); NEUTROPHILS % (AUTO) 57 % (42-75); PLATELET COUNT 356 10^3/uL (130-400); RED CELL DISTRIBUTION WIDTH 13.8 % (10.0-14.5); WHITE BLOOD COUNT 9.1 10^3/uL (4.3-11.0)
[2018-10-31 00:40] LABS: BILIRUBIN,URINE NEGATIVE (NEGATIVE); CLARITY,URINE CLEAR; COLOR,URINE YELLOW; GLUCOSE, URINE (UA) NEGATIVE (NEGATIVE); KETONES,URINE NEGATIVE (NEGATIVE); LEUKOCYTE ESTERASE ,URINE 3+ (NEGATIVE); NITRITE,URINE NEGATIVE (NEGATIVE); PH,URINE 6 (5-9); PROTEIN,URINE NEGATIVE (NEGATIVE); UROBILINOGEN,URINE NORMAL (NORMAL)
[2018-10-31 00:56] LABS: BACTERIA,URINE FEW /HPF; RBC,URINE 0-2 /HPF; SQUAMOUS EPITHELIAL CELL,UR 25-50 /HPF
[2018-10-31 00:58] LABS: AMPHETAMINE SCREEN, URINE NEGATIVE (NEGATIVE); BARBITURATE SCREEN URINE NEGATIVE (NEGATIVE); BENZODIAZEPINES SCREEN URINE POSITIVE (NEGATIVE); CANNABINOID SCREEN, URINE NEGATIVE (NEGATIVE); COCAINE SCREEN URINE NEGATIVE (NEGATIVE); METHADONE STAT NEGATIVE (NEGATIVE); METHAMPHETAMINE SCREEN URINE S NEGATIVE (NEGATIVE); OPIATE SCREEN URINE NEGATIVE (NEGATIVE); OXYCODONE STAT NEGATIVE (NEGATIVE); PROPOXYPHENE STAT NEGATIVE (NEGATIVE); TRICYCLIC ANTIDEPRESSANTS SCRE NEGATIVE (NEGATIVE)
[2018-10-31 01:23] LABS: ALANINE AMINOTRANSFERASE 37 U/L (0-55); ALBUMIN 4.2 GM/DL (3.2-4.5); ALKALINE PHOSPHATASE 105 U/L (40-136); BILIRUBIN,TOTAL 0.5 MG/DL (0.1-1.0); BUN/CREATININE RATIO 8; CALCIUM 9.8 MG/DL (8.5-10.1); CARBON DIOXIDE 22 MMOL/L (21-32); CHLORIDE 106 MMOL/L (98-107); CREATININE SERUM 0.98 MG/DL (0.60-1.30); GFR ESTIMATED > 60; GLUCOSE 82 MG/DL (70-105); LIPASE 35 U/L (8-78); MAGNESIUM 1.9 MG/DL (1.8-2.4); POTASSIUM 3.9 MMOL/L (3.6-5.0); SODIUM 139 MMOL/L (135-145); TOTAL PROTEIN 7.7 GM/DL (6.4-8.2)
[2018-10-31] MEDS ORDERED: FLUC200T5 PO (03:14)
[2018-10-31] MEDS ORDERED: ACHD5005 PO (03:14)
[2018-10-31] MEDS ORDERED: ONDA4TAB11 PO (03:14)
[2018-10-31] MEDS ORDERED: CIPR500T21 PO (03:14)
[2018-10-31 03:21] VITALS: BP 135/99
--- NOTE | 2018-10-31 06:42 | Diagnostic Imaging Report ---
PROCEDURE: CT urinary tract, rule out kidney stone. TECHNIQUE: Multiple contiguous axial images were obtained through the abdomen and pelvis without the use of intravenous contrast. INDICATION: History of small bowel resection now complaining of 3 weeks history of right flank pain. FINDINGS: Small stones in the kidneys bilaterally greater right are present the largest calculus is 2 mm. No opaque ureteral stone. No hydronephrosis. The air-containing appendix is visualized and is nondilated. There is prominent fatty deposition along the balderas of the colon which may reflect prior inflammatory bowel disease or be merely secondary to underlying diffuse fatty deposition in obese patient. There are postsurgical changes of a bowel resection and anastomosis without evidence for leak or obstruction. Some edema and stranding of the fat along the right colic gutter which may be scarring or reflect the sequelae of inflammatory process. The uterus and adnexa unremarkable. Urinary bladder unremarkable. There is no pneumatosis or free gas. IMPRESSION: Nonobstructing stones. No ureteral calculus or hydronephrosis. Infiltration of the fat along the right colic gutter may be scarring or inflammatory. No fluid collection. Previous bowel resection without evidence for leak or obstruction. No other significant finding. Dictated by: Dictated on workstation # [id number]
== END 2018-10-31 03:23 | disposition home or self-care (01) ==
LOC: EDUNIT# 23:51 → ER 23:53
DX: K52.9 Noninfective gastroenteritis and colitis, unspecified (principal); K58.9 Irritable bowel syndrome, unspecified; F41.9 Anxiety disorder, unspecified; F32.9 Major depressive disorder, single episode, unspecified; Z88.2 Allergy status to sulfonamides; Z90.49 Acquired absence of other specified parts of digestive tract
CPT/HCPCS: 36415; 74176; 80053; 80306; 81000; 83605; 83690; 83735; 84703; 85025; 85379; 86141; 96361; 96374; 96375; 96376

== ENCOUNTER 2018-11-03 02:23 | Emergency (ER) | payer OTHER ==
[~2018-11-03] VITALS: Ht 172.7 cm; Wt 136.1 kg
[~2018-11-03 02:23] MED LIST changes: +CIPR500T21 PO; +FLUC200T5 PO; +ONDA4TAB11 PO
[2018-11-03] MEDS ORDERED: BUPR100T7 PO (02:52)
[2018-11-03] MEDS ORDERED: CITA20TA12 PO (02:52)
[2018-11-03] MEDS ORDERED: APIX5TAB4 PO (02:52)
[2018-11-03] MEDS ORDERED: METR500T PO (02:52)
[2018-11-03] MEDS ORDERED: TRAZ-189 PO (02:52)
[2018-11-03 02:57] LABS: BILIRUBIN,URINE NEGATIVE (NEGATIVE); CLARITY,URINE CLEAR; COLOR,URINE YELLOW; GLUCOSE, URINE (UA) NEGATIVE (NEGATIVE); KETONES,URINE NEGATIVE (NEGATIVE); LEUKOCYTE ESTERASE ,URINE 2+ (NEGATIVE); NITRITE,URINE NEGATIVE (NEGATIVE); PH,URINE 6 (5-9); PROTEIN,URINE NEGATIVE (NEGATIVE); UROBILINOGEN,URINE NORMAL (NORMAL)
[2018-11-03 03:21] LABS: BACTERIA,URINE TRACE /HPF; SQUAMOUS EPITHELIAL CELL,UR 0-2 /HPF
[2018-11-03] MEDS ORDERED: KETOROLAC 60 MG/2 ML VIAL IM STA (03:27)
[2018-11-03] MEDS ORDERED: ONDANSETRON 4 MG (ZOFRAN) ORAL DISSOLVE TAB PO STA (03:29)
[2018-11-03 03:46] LABS: AMPHETAMINE SCREEN, URINE NEGATIVE (NEGATIVE); BARBITURATE SCREEN URINE NEGATIVE (NEGATIVE); BENZODIAZEPINES SCREEN URINE NEGATIVE (NEGATIVE); CANNABINOID SCREEN, URINE NEGATIVE (NEGATIVE); COCAINE SCREEN URINE NEGATIVE (NEGATIVE); METHADONE STAT NEGATIVE (NEGATIVE); METHAMPHETAMINE SCREEN URINE S NEGATIVE (NEGATIVE); OPIATE SCREEN URINE POSITIVE (NEGATIVE); OXYCODONE STAT NEGATIVE (NEGATIVE); PROPOXYPHENE STAT NEGATIVE (NEGATIVE); TRICYCLIC ANTIDEPRESSANTS SCRE NEGATIVE (NEGATIVE)
--- NOTE | 2018-11-03 04:07 | ED Abdominal Pain ---
General Chief Complaint: Abdominal/GI Problems Stated Complaint: LOWER BACK & LOWER ABD PAIN Nursing Triage Note: RIGHT SIDED ABDOMINAL PAIN RADIATING TO RIGHT FLANK. DX WITH COLITIS 10/29/18 Sepsis Screen: No Definite Risk Source of Information: Patient, Old Records History of Present Illness Date Seen by Provider: Nov 03, 2018 Time Seen by Provider: 02:50 Initial Comments PT ARRIVES VIA POV FROM HOME C/O RIGHT FLANK PAIN RADIATING TO RLQ FOR OVER 2 WEEKS STATES PAIN THEN ALSO RADIATES FROM RLQ UP TO RUQ AND RIGHT CHEST AND SHOULDER AREA STATES PAIN HAS GOTTEN WORSE SINCE Tuesday10/29/18 + NAUSEA, NO VOMITING PT HAS CHRONIC DIARRHEA AND IS NO DIFFERENT THAN NORMAL. NO BLACK/BLOODY/TARRY STOOLS NO URINARY SYMPTOMS NO FEVER NOTHING WORSENS OR IMPROVES PAIN PT HAS HISTORY OF SMALL BOWEL RESECTION DUE TO MESENTERIC INFARCT DUE TO BLOOD CLOT 12/2016--WAS DX WITH FACTOR 5 LEIDEN DEFICIENCY AND HAS BEEN ON ELIQUIS SINCE THEN. DENIES ANY MISSED DOSES OF MEDICATIONS STATES SHE HAS HAD ONGOING DIARRHEA SINCE THAT SURGERY. PT HAS ALSO BEEN DX WITH IRRITABLE BOWEL HAS BEEN PRESCRIBED IMMODIUM AND DICYCLOMINE IN THE PAST PT WAS SEEN HERE ON Tuesday10/30/18 FOR THIS PROBLEM AND HAD LAB AND CT DONE. WAS DX WITH COLITIS. HAD INCIDENTAL FINDING OF BILATERAL INTRARENAL/NON- OBSTRUCTING KIDNEY STONES ( PT WAS UNAWARE OF KIDNEY STONES PRIOR TO THAT TIME ) PT WAS PRESCRIBED CIPRO FOR 3 AND HYDROCODONE--STATES SHE TOOK A HYDROCODONE AT 2330 TONIGHT WITHOUT RELIEF. PT WAS ALSO PRESCRIBED ZOFRAN AND FLUCONAZOLE PT WAS SEEN AT [facility] ON TUESDAY FOR FOLLOW UP AND WAS ALSO PRESCRIBED FLAGYL FOR 7 DAYS PT STATES SYMPTOMS ARE NOT IMPROVING LMP 05/2018--PT IS ON DEPO-PROVERA--LAST SHOT 08/14/18 PCP: DIONI PT WORKS AT [employer] [facility] IN [place] Allergies and Home Medications Allergies Coded Allergies: Sulfa (Sulfonamide Antibiotics) (Verified Allergy, Unknown, 08/10/18) Home Medications Ciprofloxacin HCl 500 Mg Tablet, 500 MG PO BID Prescribed by: DULCE CONDE on 11/03/18 0504 Dicyclomine HCl 20 Mg Tablet, 20 MG PO Q6H Prescribed by: DULCE CONDE on 11/03/18 0504 Hydrocodone Bit/Acetaminophen 1 Tab Tab, 1 EACH PO Q4-6HR PRN for PAIN-MODERATE Prescribed by: MEAGAN CARDOZO on 10/31/18 0314 Hyoscyamine Sulfate 0.125 Mg Tab.subl, 1-2 TAB SL Q4H Prescribed by: DULCE CONDE on 11/03/18 0504 Patient Home Medication List Home Medication List Reviewed: Yes Review of Systems Review of Systems Constitutional: No fever Respiratory: No Symptoms Reported Cardiovascular: See HPI Gastrointestinal: See HPI, Abdominal Pain, Diarrhea, Nausea; Denies Poor Appetite, Denies Poor Fluid Intake, Denies Vomiting Genitourinary: See HPI; Denies Burning, Denies Discharge, Denies Frequency; Flank Pain; Denies Hematuria, Denies Incontinence, Denies Pain, Denies Urgency Musculoskeletal: see HPI, back pain Skin: no symptoms reported Psychiatric/Neurological: No Symptoms Reported Endocrine: No Symptoms Reported Hematologic/Lymphatic: No Symptoms Reported Past Edhuiwf-Rnuvoa-Riwsba Hx Patient Social History Alcohol Use: Occasionally Uses Recreational Drug Use: No Smoking Status: Former Smoker Type Used: Cigarettes 2nd Hand Smoke Exposure: Yes Recent Foreign Travel: No Contact w/Someone Who Travel: No Recent Infectious Disease Expo: No Recent Hopitalizations: No Immunizations Up To Date Tetanus Booster (TDap): Unknown Seasonal Allergies Seasonal Allergies: No Past Medical History Surgeries: Yes (SMALL BOWEL RESECTION 12/2016) Abdominal, Bowel Surgery Respiratory: No Cardiac: No Neurological: No : No Reproductive Disorders: No Genitourinary: Yes (INCIDENTAL FINDING OF KIDNEY STONES ON CT--HAS NEVER PASSED ONE) Kidney Stones Gastrointestinal: Yes (SMALL BOWEL RESECTION FOR MESENTERIC ISCHEMIA DUE TO BLOOD CLOT DUE TO FACTOR 5 LEIDEN DEFICIENCY 12/2016) Chronic Diarrhea, Irritable Bowel Musculoskeletal: No Endocrine: No HEENT: No Cancer: No Psychosocial: Yes Anxiety, Depression Integumentary: No Blood Disorders: Yes (FACTOR 5 LEIDEN DEFICIENCY--ON ELIQUIS) Adverse Reaction/Blood Tranf: No Physical Exam Vital Signs Vital Signs - First Documented 11/03/18 02:44 Temp 97.7 Pulse 91 Resp 18 B/P (MAP) 150/92 (111) Pulse Ox 99 O2 Delivery Room Air Capillary Refill : Less Than 3 Seconds Height/Weight/BMI Height: 5'8.00" Weight: 300lbs. oz. 136.438898gh; BMI Method:Stated General Appearance: no apparent distress, obese Respiratory: normal breath sounds, no respiratory distress, no accessory muscle use Cardiovascular: regular rate, rhythm, no murmur Gastrointestinal: soft; No distended, No guarding, No rebound; tenderness ( MILD RIGHT FLANK TENDERNESS, MODERATE RIGHT MID AND LOWER ABDOMEN TENDERNESS, MILD RUQ TENDERNESS. NO REBOUND OR RIGIDITY); No hernia, No mass Extremities: normal inspection Back: CVA tenderness (R) Neurologic/Psychiatric: plater printed circuit board panels II-XII nml as tested, no motor/sensory deficits, alert, normal mood/affect, oriented x 3 Skin: normal color, warm/dry; No rash Progress/Results/Core Measures Results/Orders Lab Results Laboratory Tests Test 11/03/18 00:00 11/03/18 02:50 Range/Units Urine Color YELLOW Urine Clarity CLEAR Urine pH 6 5-9 Urine Specific [employer] 1.015 L 1.016-1.022 Urine Protein NEGATIVE NEGATIVE Urine Glucose (UA) NEGATIVE NEGATIVE Urine Ketones NEGATIVE NEGATIVE Urine Nitrite NEGATIVE NEGATIVE Urine Bilirubin NEGATIVE NEGATIVE Urine Urobilinogen NORMAL NORMAL MG/DL Urine Leukocyte Esterase 2+ H NEGATIVE Urine RBC (Auto) NEGATIVE NEGATIVE Urine RBC NONE /HPF Urine WBC NONE /HPF Urine Squamous Epithelial Cells 0-2 /HPF Urine Crystals NONE /LPF Urine Bacteria TRACE /HPF Urine Casts NONE /LPF Urine Mucus NEGATIVE /LPF Urine Culture Indicated NO Urine Test NEGATIVE NEGATIVE Urine Opiates Screen POSITIVE H NEGATIVE Urine Oxycodone Screen NEGATIVE NEGATIVE Urine Methadone Screen NEGATIVE NEGATIVE Urine Propoxyphene Screen NEGATIVE NEGATIVE Urine Barbiturates Screen NEGATIVE NEGATIVE Ur Tricyclic Antidepressants Screen NEGATIVE NEGATIVE Urine Phencyclidine Screen NEGATIVE NEGATIVE Urine Amphetamines Screen NEGATIVE NEGATIVE Urine Methamphetamines Screen NEGATIVE NEGATIVE Urine Benzodiazepines Screen NEGATIVE NEGATIVE Urine Cocaine Screen NEGATIVE NEGATIVE Urine Cannabinoids Screen NEGATIVE NEGATIVE My Orders Orders - DULCE CONDE DO Urine Bedside (11/03/18 02:51) Ua Culture If Indicated (11/03/18 02:51) Hcg,Qualitative Urine (11/03/18 02:59) Amylase (11/03/18 03:27) Cbc With Automated Diff (11/03/18 03:27) Comprehensive Metabolic Panel (11/03/18 03:27) Drug Screen Stat (Urine) (11/03/18 03:27) Lipase (11/03/18 03:27) Ketorolac Injection (Toradol Injection) (11/03/18 03:27) Ondansetron Oral Dissolve Tab (Zofran (11/03/18 03:29) Acute Abd Series (11/03/18 03:29) Vital Signs/I&O 11/03/18 02:44 Temp 97.7 Pulse 91 Resp 18 B/P (MAP) 150/92 (111) Pulse Ox 99 O2 Delivery Room Air Blood Pressure Mean: 111 Progress Progress Note : Progress Note MULTIPLE ATTEMPTS BY MULTIPLE STAFF MEMBERS TO GAIN IV ACCESS AND TO DO LAB DRAW ALL UNSUCCESSFUL PT REFUSES OTHER ATTEMPTS PAIN IS GONE WITH TORADOL Diagnostic Imaging Comments ACUTE ABDOMEN XRAYS--NONSPECIFIC BOWEL GAS, NO ACUTE PROCESS, PENDING RADIOLOGIST REVIEW Reviewed: Reviewed by Me Departure Impression Primary Impression: RIGHT FLANK AND RLQ PAIN Additional Impressions: Colitis Kidney stones History of IBS Disposition: HOME, SELF-CARE Condition: Stable Departure-Patient Inst. Referrals: LAKHWINDER POSADAS APRN (PCP/Family) Primary Care Physician Patient Instructions: Acute Abdomen (Belly Pain), Adult (DC), Irritable Bowel Syndrome (DC), Kidney Stones (DC), Microscopic Colitis Add. Discharge Instructions: HOME, REST CLEAR LIQUIDS--WATER, BROTH, JELLO, GATORADE NO FOOD UNTIL YOU ARE PAIN-FREE TAKE YOUR ZOFRAN NEEDED FOR NAUSEA TAKE YOUR MEDICATIONS PRESCRIBED--FINISH FLAGYL FOLLOW UP WITH [facility] TODAY OR TOMORROW FOR FURTHER CARE, RETURN TO ER IF WORSE All discharge instructions reviewed with patient and/or family. Voiced understanding. Scripts Dicyclomine HCl (Dicyclomine HCl) 20 Mg Tablet 20 MG PO Q6H for Abdominal Pain, #20 TAB Prov: DULCE CONDE DO 11/03/18 Hyoscyamine Sulfate (Levsin-Sl) 0.125 Mg Tab.subl 1-2 TAB SL Q4H for Abdominal Pain, #15 TAB Prov: DULCE CONDE DO 11/03/18 Ciprofloxacin HCl (Cipro) 500 Mg Tablet 500 MG PO BID, #20 TAB Prov: DULCE CONDE DO 11/03/18 DULCE CONDE DO Nov 03, 2018 04:07
--- NOTE | 2018-11-03 04:50 | NUR ---
lab reports specimen hemolyzed. pt refuses additional lab draws. erp notified.
[2018-11-03 05:00] VITALS: BP 149/91
[2018-11-03] MEDS ORDERED: CIPR-225 PO (05:04)
[2018-11-03] MEDS ORDERED: HYOS0.1283 SL (05:04)
[2018-11-03] MEDS ORDERED: DICY20TA10 PO (05:04)
--- NOTE | 2018-11-03 07:54 | Diagnostic Imaging Report ---
INDICATION: Right flank pain. FINDINGS: Upright chest shows lungs to be clear. Heart is not enlarged. Upright and supine abdomen shows no evidence of free air. There are no air-fluid levels. There is normal gas and stool pattern throughout the colon to the rectum. The stomach and small bowel are nondistended. There is no organomegaly. No pathologic calcification. IMPRESSION: No acute abnormalities demonstrated. Dictated by: Dictated on workstation # [id number]
--- OUTSIDE RECORDS SUMMARY | 2018-11-05 05:53 | XMS REPORT | Continuity of Care Document ---
Author Author [facility] Organization [facility] Address Unknown Phone Unavailable Allergies Active Description Code Type Severity Reaction Onset Reported/Identified Relationship to Patient Clinical Status Yes Sulfa (Sulfonamide Antibiotics) [id number] Drug Allergy Unknown N/A 2017 Medications There [...] MD Ot R20.0 ANESTHESIA OF SKIN 07/04/2018 CAS MD, MEAGAN J Ot Z87.19 PERSONAL HISTORY OF OTHER DISEASES OF TH 07/04/2018 MEAGAN CARDOZO MD Ot Z88.2 ALLERGY STATUS TO SULFONAMIDES STATUS 07/04/2018 MEAGAN CARDOZO MD Ot Z90.49 ACQUIRED ABSENCE OF OTHER SPECIFIED PART 08/10/2018 KOSTA DUMAS MD, Ot D68.51 ACTIVATED PROTEIN C RESISTANCE 08/10/2018 KOSTA DUMAS MD, Ot F32.9 MAJOR DEPRESSIVE DISORDER, SINGLE EPISOD 08/10/2018 KOSTA DUMAS MD Ot F41.9 ANXIETY DISORDER, UNSPECIFIED 08/10/2018 KOSTA DUMAS MD Ot 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 08/10/2018 KOSTA DUMAS MD Ot R19.7 DIARRHEA, UNSPECIFIED 08/10/2018 KOSTA DUMAS MD Ot 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 08/10/2018 KOSTA DUMAS MD Ot Z87.19 PERSONAL HISTORY OF OTHER DISEASES OF TH 08/10/2018 KOSTA DUMAS MD Ot Z88.2 ALLERGY STATUS TO SULFONAMIDES STATUS 08/10/2018 KOSTA DUMAS MD Ot Z90.49 ACQUIRED ABSENCE OF OTHER SPECIFIED PART 08/14/2018 KOSTA DUMAS MD Ot D68.51 ACTIVATED PROTEIN C RESISTANCE 08/14/2018 KOSTA DUMAS MD Ot F32.9 MAJOR DEPRESSIVE DISORDER, SINGLE EPISOD 08/14/2018 KOSTA DUMAS MD Ot F41.9 ANXIETY DISORDER, UNSPECIFIED 08/14/2018 KOSTA DUMAS MD Ot 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 08/14/2018 KOSTA DMUAS MD Ot R19.7 DIARRHEA, UNSPECIFIED 08/14/2018 KOSTA DUMAS MD Ot 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 08/14/2018 KOSTA DUMAS MD Ot Z87.19 PERSONAL HISTORY OF OTHER DISEASES OF TH 08/14/2018 KOSTA DUMAS MD Ot Z88.2 ALLERGY STATUS TO SULFONAMIDES STATUS 08/14/2018 KOSTA DUMAS MD Ot Z90.49 ACQUIRED ABSENCE OF OTHER SPECIFIED PART 10/31/2018 MEAGAN CARDOZO MD Ot F32.9 MAJOR DEPRESSIVE DISORDER, SINGLE EPISOD 10/31/2018 MEAGAN CARDOZO MD Ot F41.9 ANXIETY DISORDER, UNSPECIFIED 10/31/2018 MEAGAN CARDOZO MD Ot K52.9 NONINFECTIVE GASTROENTERITIS AND COLITIS 10/31/2018 MEAGAN CARDOZO MD Ot K58.9 IRRITABLE BOWEL SYNDROME WITHOUT DIARRHE 10/31/2018 MEAGAN CARDOZO MD Ot R10.31 RIGHT LOWER QUADRANT PAIN 10/31/2018 MEAGAN CARDOZO MD Ot Z88.2 ALLERGY STATUS TO SULFONAMIDES STATUS 10/31/2018 MEAGAN CARDOZO MD Ot Z90.49 ACQUIRED ABSENCE OF OTHER SPECIFIED PART 11/02/2018 MEAGAN CARDOZO MD Ot F32.9 MAJOR DEPRESSIVE DISORDER, SINGLE EPISOD 11/02/2018 MEAGAN CARDOZO MD Ot F41.9 ANXIETY DISORDER, UNSPECIFIED 11/02/2018 MEAGAN CARDOZO MD Ot K52.9 NONINFECTIVE GASTROENTERITIS AND COLITIS 11/02/2018 MEAGAN CARDOZO MD Ot K58.9 IRRITABLE BOWEL SYNDROME WITHOUT DIARRHE 11/02/2018 MEAGAN CARDOZO MD Ot R10.31 RIGHT LOWER QUADRANT PAIN 11/02/2018 MEAGAN CARDOZO MD Ot Z88.2 ALLERGY STATUS TO SULFONAMIDES STATUS 11/02/2018 MEAGAN CARDOZO MD Ot Z90.49 ACQUIRED ABSENCE OF OTHER SPECIFIED PART Procedures There is no data. Results Test Result Range TSH - 01/18/18 15:28 TSH 0.90 mIU/L NR SUREPATH PAP RFX HPV mRNA E6/E7 - 03/01/18 18:35 CLINICAL INFORMATION: NRG LMP: NRG PREV. PAP: NRG PREV. BX: NRG SOURCE: NR STATEMENT OF ADEQUACY: NR INTERPRETATION/RESULT: NR CAMPAIGN ANALYST: NR REVIEW CAMPAIGN ANALYST: JULIA COMMENT NRG CULTURE, GENITAL - 03/01/18 19:00 [...] NRG STATEMENT OF ADEQUACY: NRG INTERPRETATION/RESULT: NRG CAMPAIGN ANALYST: NRG COMMENT NRG Complete blood count (CBC) with automated white blood cell (WBC) differential - 10/31/18 00:25 Blood leukocytes automated count (number/volume) 9.1 10*3/uL 4.3-11.0 Blood erythrocytes automated count (number/volume) 4.35 10*6/uL 4.35-5.85 Venous blood hemoglobin measurement (mass/volume) 13.5 g/dL 11.5-16.0 Blood hematocrit (volume fraction) 41 % 35-52 Automated erythrocyte mean corpuscular volume 93 [foz_us] 80-99 Automated erythrocyte mean corpuscular hemoglobin (mass per erythrocyte) 31 pg 25-34 Automated erythrocyte mean corpuscular hemoglobin concentration measurement ( mass/volume) 33 g/dL 32-36 Automated erythrocyte distribution width ratio 13.8 % 10.0-14.5 Automated blood platelet count (count/volume) 356 10*3/uL 130-400 Automated blood platelet mean volume measurement 9.8 [foz_us] 7.4-10.4 Automated blood neutrophils/100 leukocytes 57 % 42-75 Automated blood lymphocytes/100 leukocytes 34 % 12-44 Blood monocytes/100 leukocytes 6 % 0-12 Automated blood eosinophils/100 leukocytes 3 % 0-10 Automated blood basophils/100 leukocytes 0 % 0-10 Blood neutrophils automated count (number/volume) 5.2 10*3 1.8-7.8 Blood lymphocytes automated count (number/volume) 3.1 10*3 1.0-4.0 Blood monocytes automated count (number/volume) 0.5 10*3 0.0-1.0 Automated eosinophil count 0.3 10*3/uL 0.0-0.3 Automated blood basophil count (count/volume) 0.0 10*3/uL 0.0-0.1 Complete urinalysis with reflex to culture - 10/31/18 00:30 Urine color determination YELLOW NRG Urine clarity determination CLEAR NRG Urine pH measurement by test strip 6 5-9 Specific gravity of urine by test strip 1.025 1.016- 1.022 Urine protein assay by test strip, semi-quantitative NEGATIVE NEGATIVE Urine glucose detection by automated test strip NEGATIVE NEGATIVE Erythrocytes detection in urine sediment by light microscopy 1+ NEGATIVE Urine ketones detection by automated test strip NEGATIVE NEGATIVE Urine nitrite detection by test strip NEGATIVE NEGATIVE Urine total bilirubin detection by test strip NEGATIVE NEGATIVE Urine urobilinogen measurement by automated test strip (mass/volume) NORMAL NORMAL Urine leukocyte esterase detection by dipstick 3+ NEGATIVE Automated urine sediment erythrocyte count by microscopy (number/high power field) [HPF] NRG Automated urine sediment leukocyte count by microscopy (number/high power field ) [HPF] NRG Bacteria detection in urine sediment by light microscopy FEW NRG Squamous epithelial cells detection in urine sediment by light microscopy 25-50 NRG Crystals detection in urine sediment by light microscopy NONE NRG Casts detection in urine sediment by light microscopy NONE NRG Mucus detection in urine sediment by light microscopy MODERATE NRG Complete urinalysis with reflex to culture NO NRG Urine drug screening test - 10/31/18 00:30 Urine phencyclidine detection by screening method NEGATIVE NEGATIVE Urine benzodiazepines detection by screening method POSITIVE NEGATIVE Urine cocaine detection NEGATIVE NEGATIVE Urine amphetamines detection by screening method NEGATIVE NEGATIVE Urine methamphetamine detection by screening method NEGATIVE NEGATIVE Urine cannabinoids detection by screening method NEGATIVE NEGATIVE Urine opiates detection by screening method NEGATIVE NEGATIVE Urine barbiturates detection NEGATIVE NEGATIVE Screening urine tricyclic antidepressants detection NEGATIVE NEGATIVE Urine methadone detection by screening method NEGATIVE NEGATIVE Urine oxycodone detection NEGATIVE NEGATIVE Urine propoxyphene detection NEGATIVE NEGATIVE Blood lactic acid measurement (moles/volume) - 10/31/18 00:55 Blood lactic acid measurement (moles/volume) 1.26 mmol/L 0.50-2.00 Fibrin D-dimer FEU measurement in platelet poor plasma (mass/volume) - 00:55 Fibrin D-dimer FEU measurement in platelet poor plasma (mass/volume) 0.30 ug/mL 0.00-0.49 Comprehensive metabolic panel - 10/31/18 00:55 Serum or plasma sodium measurement (moles/volume) 139 mmol/L 135-145 Serum or plasma potassium measurement (moles/volume) 3.9 mmol/L 3.6-5.0 Serum or plasma chloride measurement (moles/volume) 106 mmol/L 98-107 Carbon dioxide 22 mmol/L 21-32 Serum or plasma anion gap determination (moles/volume) 11 mmol/L 5-14 Serum or plasma urea nitrogen measurement (mass/volume) 8 mg/dL 7-18 Serum or plasma creatinine measurement (mass/volume) 0.98 mg/dL 0.60-1.30 Serum or plasma urea nitrogen/creatinine mass ratio 8 NRG Serum or plasma creatinine measurement with calculation of estimated glomerular filtration rate > NRG Serum or plasma glucose measurement (mass/volume) 82 mg/dL 70-105 Serum or plasma calcium measurement (mass/volume) 9.8 mg/dL 8.5-10.1 Serum or plasma total bilirubin measurement (mass/volume) 0.5 mg/dL 0.1-1.0 Serum or plasma alkaline phosphatase measurement (enzymatic activity/volume) 105 U/L 40-136 Serum or plasma aspartate aminotransferase measurement (enzymatic activity/ volume) 40 U/L 5-34 Serum or plasma alanine aminotransferase measurement (enzymatic activity/volume ) 37 U/L 0-55 Serum or plasma protein measurement (mass/volume) 7.7 g/dL 6.4-8.2 Serum or plasma albumin measurement (mass/volume) 4.2 g/dL 3.2-4.5 CALCIUM CORRECTED 9.6 mg/dL 8.5-10.1 Magnesium - 10/31/18 00:55 Magnesium 1.9 mg/dL 1.8-2.4 Lipase - 10/31/18 00:55 Lipase 35 U/L 8-78 Serum or plasma C reactive protein measurement (mass/volume) - 10/31/18 00:55 Serum or plasma C reactive protein measurement (mass/volume) 0.94 mg /dL 0.00-0.50 Urine beta human chorionic gonadotropin (hCG) measurement - 11/03/18 02:50 Urine beta human chorionic gonadotropin (hCG) measurement NEGATIVE NEGATIVE Complete urinalysis with reflex to culture - 11/03/18 02:50 Urine color determination YELLOW NRG Urine clarity determination CLEAR NRG Urine pH measurement by test strip 6 5-9 Specific gravity of urine by test strip 1.015 1.016- 1.022 Urine protein assay by test strip, semi-quantitative NEGATIVE NEGATIVE Urine glucose detection by automated test strip NEGATIVE NEGATIVE Erythrocytes detection in urine sediment by light microscopy NEGATIVE NEGATIVE Urine ketones detection by automated test strip NEGATIVE NEGATIVE Urine nitrite detection by test strip NEGATIVE NEGATIVE Urine total bilirubin detection by test strip NEGATIVE NEGATIVE Urine urobilinogen measurement by automated test strip (mass/volume) NORMAL NORMAL Urine leukocyte esterase detection by dipstick 2+ NEGATIVE Automated urine sediment erythrocyte count by microscopy (number/high power field) NONE NRG Automated urine sediment leukocyte count by microscopy (number/high power field ) NONE NRG Bacteria detection in urine sediment by light microscopy TRACE NRG Squamous epithelial cells detection in urine sediment by light microscopy 0-2 NRG Crystals detection in urine sediment by light microscopy NONE NRG Casts detection in urine sediment by light microscopy NONE NRG Mucus detection in urine sediment by light microscopy NEGATIVE NRG Complete urinalysis with reflex to culture NO NRG Urine drug screening test - 11/03/18 02:50 Urine phencyclidine detection by screening method NEGATIVE NEGATIVE Urine benzodiazepines detection by screening method NEGATIVE NEGATIVE Urine cocaine detection NEGATIVE NEGATIVE Urine amphetamines detection by screening method NEGATIVE NEGATIVE Urine methamphetamine detection by screening method NEGATIVE NEGATIVE Urine cannabinoids detection by screening method NEGATIVE NEGATIVE Urine opiates detection by screening method POSITIVE NEGATIVE Urine barbiturates detection NEGATIVE NEGATIVE Screening urine tricyclic antidepressants detection NEGATIVE NEGATIVE Urine methadone detection by screening method NEGATIVE NEGATIVE Urine oxycodone detection NEGATIVE NEGATIVE Urine propoxyphene detection NEGATIVE NEGATIVE Complete blood count (CBC) with automated white blood cell (WBC) differential - 11/03/18 08:52 Blood leukocytes automated count (number/volume) 9.9 10*3/uL 4.3-11.0 Blood erythrocytes automated count (number/volume) 4.12 10*6/uL 4.35-5.85 Venous blood hemoglobin measurement (mass/volume) 12.9 g/dL 11.5-16.0 Blood hematocrit (volume fraction) 39 % 35-52 Automated erythrocyte mean corpuscular volume 94 [foz_us] 80-99 Automated erythrocyte mean corpuscular hemoglobin (mass per erythrocyte) 31 pg 25-34 Automated erythrocyte mean corpuscular hemoglobin concentration measurement ( mass/volume) 33 g/dL 32-36 Automated erythrocyte distribution width ratio 13.0 % 10.0-14.5 Automated blood platelet count (count/volume) 277 10*3/uL 130-400 Automated blood platelet mean volume measurement 9.6 [foz_us] 7.4-10.4 Automated blood neutrophils/100 leukocytes 71 % 42-75 Automated blood lymphocytes/100 leukocytes 21 % 12-44 Blood monocytes/100 leukocytes 6 % 0-12 Automated blood eosinophils/100 leukocytes 2 % 0-10 Automated blood basophils/100 leukocytes 0 % 0-10 Blood neutrophils automated count (number/volume) 7.0 10*3 1.8-7.8 Blood lymphocytes automated count (number/volume) 2.1 10*3 1.0-4.0 Blood monocytes automated count (number/volume) 0.6 10*3 0.0-1.0 Automated eosinophil count 0.2 10*3/uL 0.0-0.3 Automated blood basophil count (count/volume) 0.0 10*3/uL 0.0-0.1 Fibrin D-dimer FEU measurement in platelet poor plasma (mass/volume) - 08:52 Fibrin D-dimer FEU measurement in platelet poor plasma (mass/volume) 0.42 ug/mL 0.00-0.49 Comprehensive metabolic panel - 11/03/18 08:52 Serum or plasma sodium measurement (moles/volume) 139 mmol/L 135-145 Serum or plasma potassium measurement (moles/volume) 3.7 mmol/L 3.6-5.0 Serum or plasma chloride measurement (moles/volume) 108 mmol/L 98-107 Carbon dioxide 20 mmol/L 21-32 Serum or plasma anion gap determination (moles/volume) 11 mmol/L 5-14 Serum or plasma urea nitrogen measurement (mass/volume) 7 mg/dL 7-18 Serum or plasma creatinine measurement (mass/volume) 0.85 mg/dL 0.60-1.30 Serum or plasma urea nitrogen/creatinine mass ratio 8 NRG Serum or plasma creatinine measurement with calculation of estimated glomerular filtration rate > NRG Serum or plasma glucose measurement (mass/volume) 98 mg/dL 70-105 Serum or plasma calcium measurement (mass/volume) 9.8 mg/dL 8.5-10.1 Serum or plasma total bilirubin measurement (mass/volume) 0.8 mg/dL 0.1-1.0 Serum or plasma alkaline phosphatase measurement (enzymatic activity/volume) 93 U/L 40-136 Serum or plasma aspartate aminotransferase measurement (enzymatic activity/ volume) 113 U/L 5-34 Serum or plasma alanine aminotransferase measurement (enzymatic activity/volume ) 71 U/L 0-55 Serum or plasma protein measurement (mass/volume) 7.2 g/dL 6.4-8.2 Serum or plasma albumin measurement (mass/volume) 3.9 g/dL 3.2-4.5 CALCIUM CORRECTED 9.9 mg/dL 8.5-10.1 Lipase - 11/03/18 08:52 Lipase 21 U/L 8-78 Encounters ACCT No. Visit Date/Time Discharge Status Pt. Type Provider Facility Loc./Unit Complaint [id number] 11/27/2013 15:01:43 11/27/2013 23:59:59 CLS Outpatient Dion Guevara [id number] 11/03/2018 07:59:00 11/03/2018 11:46:00 DIS Emergency KRYSTYNA DEVLIN, MAKI Rodriguez [facility] ER SOB [id number] 11/03/2018 02:25:00 11/03/2018 05:08:00 DIS Emergency DULCE CONDE DO [facility] ER LOWER BACK LOWER ABD PAIN [id number] 10/31/2018 08:19:00 10/31/2018 23:59:59 CLS Preadmit LAKHWINDER POSADAS APRN [facility] RAD ABD PAIN [id number] 10/30/2018 23:53:00 10/31/2018 03:23:00 DIS Emergency MEAGAN CARDOZO MD [facility] ER BACK PAIN,ABD PAIN [id number] 08/10/2018 01:44:00 08/10/2018 04:04:00 DIS Emergency AELSIA DEVLIN, KOSTA Bennett [facility] ER DIARRHEA,RECTAL BLEEDING [id number] 06/30/2018 00:50:00 06/30/2018 01:26:00 DIS Emergency CAS DEVLIN, MEAGAN Rubio [facility] ER RT ARM [id number] NO INJURY [id number] 03/16/2018 20:28:00 03/16/2018 23:00:00 DIS Emergency YADIRA DEVLIN, SUDEEP Kirkland [facility] ER ABD ISSUES [id number] 10/27/2018 15:00:00 10/27/2018 23:59:59 [id number] 08/14/2018 14:00:00 Document Registration [id number] 03/01/2018 18:00:00 Document Registration [id number] 01/18/2018 15:00:00 Document Registration
== END 2018-11-03 05:08 | disposition home or self-care (01) ==
LOC: EDUNIT# 02:23 → ER 02:25
DX: K52.9 Noninfective gastroenteritis and colitis, unspecified (principal); N20.0 Calculus of kidney; K58.9 Irritable bowel syndrome, unspecified; F41.9 Anxiety disorder, unspecified; F32.9 Major depressive disorder, single episode, unspecified; D68.2 Hereditary deficiency of other clotting factors; Z90.49 Acquired absence of other specified parts of digestive tract; Z88.2 Allergy status to sulfonamides; Z87.891 Personal history of nicotine dependence; Z87.19 Personal history of other diseases of the digestive system; Z98.890 Other specified postprocedural states
CPT/HCPCS: 36415; 74022; 80306; 81000; 84703

== ENCOUNTER 2018-11-03 07:58 | Emergency (ER) | payer OTHER ==
[~2018-11-03] VITALS: Ht 172.7 cm; Wt 136.1 kg
[~2018-11-03 07:58] MED LIST changes: +APIX5TAB4 PO; +BUPR100T7 PO; +CIPR-225 PO; +CITA20TA12 PO; +DICY20TA10 PO; +METR500T PO; +TRAZ-189 PO
[2018-11-03] MEDS ORDERED: NS IV 1000 ML 1,000 ML IV SCH (08:30)
--- NOTE | 2018-11-03 08:33 | ED Abdominal Pain ---
General Chief Complaint: Abdominal/GI Problems Stated Complaint: SOB Source of Information: Patient, Family Exam Limitations: No Limitations History of Present Illness Date Seen by Provider: Nov 03, 2018 Time Seen by Provider: 08:27 Initial Comments This 27-year-old white female presents with complaint of right sided flank and abdominal pain that has been present for the last 4 days. The patient was seen in the emergency department on Tuesday and felt to have colitis. She was seen in the emergency department last night and thought to have a right kidney stone. Patient's past medical history is significant in that she suffers from factor V Leiden disease. The patient has had a previous resection of a significant amount of her small bowel at [facility] by Dr. Reyna Espinoza. Patient is on Eliquis twice daily. Allergies and Home Medications Allergies Coded Allergies: Sulfa (Sulfonamide Antibiotics) (Verified Allergy, Unknown, 08/10/18) Home Medications Ciprofloxacin HCl 500 Mg Tablet, 500 MG PO BID Prescribed by: DULCE CONDE on 11/03/18 0504 Dicyclomine HCl 20 Mg Tablet, 20 MG PO Q6H Prescribed by: DULCE CONDE on 11/03/18 0504 Hydrocodone Bit/Acetaminophen 1 Tab Tab, 1 EACH PO Q4-6HR PRN for PAIN-MODERATE Prescribed by: MEAGAN CARDOZO on 10/31/18 0314 Hyoscyamine Sulfate 0.125 Mg Tab.subl, 1-2 TAB SL Q4H Prescribed by: DULCE CONDE on 11/03/18 0504 Patient Home Medication List Home Medication List Reviewed: Yes Review of Systems Review of Systems Constitutional: No chills, No fever; malaise EENTM: No Blurred Vision Respiratory: Denies Cough Cardiovascular: Denies Chest Pain Gastrointestinal: See HPI, Abdominal Pain, Nausea Genitourinary: Denies Flank Pain (on the right) Musculoskeletal: No back pain Skin: No rash Psychiatric/Neurological: Denies Anxiety, Denies Depressed Endocrine: No Symptoms Reported Hematologic/Lymphatic: No Symptoms Reported Past [id number]-[id number]-Ewqhyi Hx Past Med/Social Hx: Reviewed Nursing Past Med/Soc Hx Patient Social History Alcohol Use: Occasionally Uses Recreational Drug Use: No Smoking Status: Never a Smoker Type Used: Cigarettes 2nd Hand Smoke Exposure: Yes Recent Hopitalizations: No Physical Abuse: No Sexual Abuse: No Mistreated: No Fear: No Immunizations Up To Date Tetanus Booster (TDap): Unknown Seasonal Allergies Seasonal Allergies: No Past Medical History Surgeries: Yes (SMALL BOWEL RESECTION 12/2016) Abdominal, Bowel Surgery Respiratory: No Cardiac: No Neurological: No Reproductive Disorders: No Genitourinary: Yes (INCIDENTAL FINDING OF KIDNEY STONES ON CT--HAS NEVER PASSED ONE) Kidney Stones Gastrointestinal: Yes Chronic Diarrhea, Irritable Bowel Musculoskeletal: No Endocrine: No HEENT: No Cancer: No Psychosocial: Yes Anxiety, Depression Integumentary: No Blood Disorders: Yes (FACTOR 5 LEIDEN DEFICIENCY--ON ELIQUIS) Adverse Reaction/Blood Tranf: No Physical Exam Vital Signs Vital Signs - First Documented 11/03/18 08:18 Temp 97.5 Pulse 88 Resp 16 B/P (MAP) 134/86 (102) Pulse Ox 95 Capillary Refill : Height/Weight/BMI Height: 5'8.00" Weight: 300lbs. oz. [id number]; BMI Method:Stated General Appearance: WD/WN, mild distress HEENT: normal ENT inspection Neck: full range of motion, supple Respiratory: chest non-tender, lungs clear Cardiovascular: regular rate, rhythm Gastrointestinal: normal bowel sounds, tenderness (greater in the right lower quadrant) Extremities: normal range of motion, non-tender, normal inspection Back: normal inspection, no CVA tenderness Neurologic/Psychiatric: no motor/sensory deficits, alert, normal mood/affect Skin: normal color, warm/dry Progress/Results/Core Measures Results/Orders Lab Results Laboratory Tests Test 11/03/18 08:52 Range/Units White Blood Count 9.9 4.3-11.0 10^3/uL Red Blood Count 4.12 L 4.35-5.85 10^6/uL Hemoglobin 12.9 11.5-16.0 G/DL Hematocrit 39 35-52 % Mean Corpuscular Volume 94 80-99 FL Mean Corpuscular Hemoglobin 31 25-34 PG Mean Corpuscular Hemoglobin Concent 33 32-36 G/DL Red Cell Distribution Width 13.0 10.0-14.5 % Platelet Count 277 130-400 10^3/uL Mean Platelet Volume 9.6 7.4-10.4 FL Neutrophils (%) (Auto) 71 42-75 % Lymphocytes (%) (Auto) 21 12-44 % Monocytes (%) (Auto) 6 0-12 % Eosinophils (%) (Auto) 2 0-10 % Basophils (%) (Auto) 0 0-10 % Neutrophils # (Auto) 7.0 1.8-7.8 X 10^3 Lymphocytes # (Auto) 2.1 1.0-4.0 X 10^3 Monocytes # (Auto) 0.6 0.0-1.0 X 10^3 Eosinophils # (Auto) 0.2 0.0-0.3 10^3/uL Basophils # (Auto) 0.0 0.0-0.1 10^3/uL D-Dimer 0.42 0.00-0.49 UG/ML Sodium Level 139 135-145 MMOL/L Potassium Level 3.7 3.6-5.0 MMOL/L Chloride Level 108 H 98-107 MMOL/L Carbon Dioxide Level 20 L 21-32 MMOL/L Anion Gap 11 5-14 MMOL/L Blood Urea Nitrogen 7 7-18 MG/DL Creatinine 0.85 0.60-1.30 MG/DL Estimat Glomerular Filtration Rate > 60 BUN/Creatinine Ratio 8 Glucose Level 98 70-105 MG/DL Calcium Level 9.8 8.5-10.1 MG/DL Corrected Calcium 9.9 8.5-10.1 MG/DL Total Bilirubin 0.8 0.1-1.0 MG/DL Aspartate Amino Transf (AST/SGOT) 113 H 5-34 U/L Alanine Aminotransferase (ALT/SGPT) 71 H 0-55 U/L Alkaline Phosphatase 93 40-136 U/L Total Protein 7.2 6.4-8.2 GM/DL Albumin 3.9 3.2-4.5 GM/DL Lipase 21 8-78 U/L My Orders Orders - MAKI GREENWOOD MD Cbc With Automated Diff (11/03/18 08:24) Comprehensive Metabolic Panel (11/03/18 08:24) Lipase (11/03/18 08:24) Ua Culture If Indicated (11/03/18 08:24) Fibrin Degradation Products (11/03/18 08:24) Ns Iv 1000 Ml (Sodium Chloride 0.9%) (11/03/18 08:30) Fentanyl Injection (Sublimaze Injection (11/03/18 08:45) Ondansetron Injection (Zofran Injectio (11/03/18 08:45) Iohexol Injection (Omnipaque 350 Mg/Ml 1 (11/03/18 08:45) Contrast Received (Contrast Received) (11/03/18 08:45) Ns (Ivpb) (Sodium Chloride 0.9% Ivpb Bag (11/03/18 08:45) Ct Angio Abd/Pelv W Wo (11/03/18 08:33) Medications Given in ED Current Medications Medications Dose Ordered Sig/Maite Route Start Time Stop Time Status Last Admin Dose Admin Fentanyl Citrate 50 mcg ONCE ONCE IVP 11/03/18 08:45 11/03/18 08:46 DC 11/03/18 09:20 50 MCG Iohexol 100 ml ONCE ONCE IV 11/03/18 08:45 11/03/18 08:46 DC 11/03/18 09:51 85 ML Ondansetron HCl 4 mg ONCE ONCE IVP 11/03/18 08:45 11/03/18 08:46 DC 11/03/18 09:20 4 MG Sodium Chloride 100 ml ONCE ONCE IV 11/03/18 08:45 11/03/18 08:46 DC 11/03/18 09:51 80 ML Vital Signs/I&O 11/03/18 08:18 Temp 97.5 Pulse 88 Resp 16 B/P (MAP) 134/86 (102) Pulse Ox 95 Progress Progress Note : Time: 11:33 Progress Note The patient's pain was relieved with fentanyl 50 g IV. Patient was given 4 mg of Zofran IV for nausea. Patient's CT A of the abdomen and pelvis demonstrated no evidence of mesenteric ischemia. The patient did have 2 small right renal calculi. There was a slight degree of hydronephrosis present suggestive of a passed kidney stone. I discussed findings with patient and her father. They're comfortable with conservative treatment home with some Percocet for pain and Zofran for nausea. They will follow-up with her doctor on Tuesday and promised to return over the weekend if any further rubs or questions. Initial ECG Impression Date: Nov 03, 2018 Initial ECG Impression Time: 11:33 Departure Impression Primary Impression: LOWER ABDOMINAL PAIN, UNSPECIFIED Disposition: 01 HOME, SELF-CARE Condition: Improved Departure-Patient Inst. Decision time for Depature: 11:37 Referrals: LAKHWINDER POSADAS APRN (PCP) Primary Care Physician Patient Instructions: Acute Abdomen (Belly Pain), Adult (DC) Add. Discharge Instructions: Percocet for pain and Zofran for nausea as prescribed. Close follow-up with her doctor on Tuesday. Return if any problems or questions. All discharge instructions reviewed with patient and/or family. Voiced understanding. MAKI GREENWOOD MD Nov 03, 2018 08:33
[2018-11-03] MEDS ORDERED: fentaNYL INJECTION 100 MCG/2 ML AMP IVP ONE (08:45)
[2018-11-03] MEDS ORDERED: ONDANSETRON 4 MG/2 ML (SDV) Z0FRAN IVP ONE (08:45)
[2018-11-03] MEDS ORDERED: NS 100 ML (IVPB) BAG IV ONE (08:45)
[2018-11-03] MEDS ORDERED: RECEIVED CONTRAST 20 ML VIAL IV SCH (08:45)
[2018-11-03] MEDS ORDERED: IOHEXOL 350 MG/ML 100 ML (OMNIPAQUE 350) VIAL IV ONE (08:45)
[2018-11-03 09:01] LABS: BASOPHILS % (AUTO) 0 % (0-10); EOSINOPHILS # (AUTO) 0.2 10^3/uL (0.0-0.3); EOSINOPHILS % (AUTO) 2 % (0-10); HEMATOCRIT 39 % (35-52); HEMOGLOBIN 12.9 G/DL (11.5-16.0); LYMPHOCYTES # (AUTO) 2.1 X 10^3 (1.0-4.0); LYMPHOCYTES % (AUTO) 21 % (12-44); MEAN CORPUSCULAR HEMOGLOBIN 31 PG (25-34); MEAN CORPUSCULAR HGB CONC 33 G/DL (32-36); MEAN CORPUSCULAR VOLUME 94 FL (80-99); MEAN PLATELET VOLUME 9.6 FL (7.4-10.4); MONOCYTES # (AUTO) 0.6 X 10^3 (0.0-1.0); MONOCYTES % (AUTO) 6 % (0-12); NEUTROPHILS % (AUTO) 71 % (42-75); PLATELET COUNT 277 10^3/uL (130-400); WHITE BLOOD COUNT 9.9 10^3/uL (4.3-11.0)
[2018-11-03 09:31] LABS: ALANINE AMINOTRANSFERASE 71 U/L (0-55); ALBUMIN 3.9 GM/DL (3.2-4.5); ALKALINE PHOSPHATASE 93 U/L (40-136); BILIRUBIN,TOTAL 0.8 MG/DL (0.1-1.0); BUN/CREATININE RATIO 8; CALCIUM 9.8 MG/DL (8.5-10.1); CARBON DIOXIDE 20 MMOL/L (21-32); CHLORIDE 108 MMOL/L (98-107); CREATININE SERUM 0.85 MG/DL (0.60-1.30); GFR ESTIMATED > 60; GLUCOSE 98 MG/DL (70-105); LIPASE 21 U/L (8-78); POTASSIUM 3.7 MMOL/L (3.6-5.0); SODIUM 139 MMOL/L (135-145); TOTAL PROTEIN 7.2 GM/DL (6.4-8.2)
--- NOTE | 2018-11-03 10:55 | Diagnostic Imaging Report ---
EXAMINATION: CTA of the abdomen and pelvis INDICATION: Abdominal pain Contiguous axial sections were taken through the abdomen and pelvis both before and after the administration of intravenous contrast. Sagittal and coronal reconstructed images were also performed. MIP Images were obtained as well. The recent CT abdomen/pelvis exam of 10/31/2018 noted nonobstructive calculi within both kidneys but failed to show any sign of obstruction of either collecting system. On this exam, both renal pelvis do seem somewhat more prominent, particularly on the right. Furthermore, the images through the low pelvis show that there is now a small 2 MM calculus within the urinary bladder. This was not clearly present on the prior exam and I suspect that this calculus was recently passed from the right collecting system. As noted on the prior exam, there is some distortion of the mesenteric fat in the right midabdomen. This may be secondary to edema/inflammation or to scar formation. The patient has had prior small bowel resection. The anastomosis of the resection appears to be intact. There is still a single nonobstructive calculus within each kidney. The appendix was not particularly well visualized but there are no indirect signs of acute appendicitis. The uterus is grossly unremarkable. There is no pelvic mass or free fluid collection noted. There is a moderate amount of fecal material throughout the colon. There is no sign of pneumatosis to suggest bowel ischemia. The liver, spleen, pancreas, adrenals, gallbladder, aorta and inferior vena cava are unremarkable for an acute abnormality. The stomach is not well-distended and consequently difficult to assess. The lung bases are clear. The bone window show no evidence for a fracture or for a destructive lesion. IMPRESSION: 1. The findings do suggest that there has been a recently passed small (2 mm calculus). Most likely this is from the right collecting system. There are still minute nonobstructive calculi within both kidneys. 2. There is no acute abnormality of the abdomen or pelvis noted otherwise. 3. There is no sign of pneumatosis of the bowel to suggest bowel ischemia. 4. The distortion of the mesenteric fat seen on the prior study is again evident. This is more likely due to scar formation than to acute edema/inflammation. 5. These results were discussed with Dr. Chris Garcia. Dictated by: Dictated on workstation # [id number]
[2018-11-03 11:46] VITALS: BP 115/82
--- OUTSIDE RECORDS SUMMARY | 2018-11-05 08:50 | XMS REPORT | Continuity of Care Document ---
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 Type Provider Facility Loc./Unit Complaint [id number] 11/27/2013 15:01:43 11/27/2013 23:59:59 CLS Outpatient Dion Guevara [id number] 11/03/2018 07:59:00 11/03/2018 11:46:00 DIS Emergency KRYSTYNA DEVLIN, MAKI Rodriguez [facility] ER SOB [id number] 11/03/2018 02:25:00 11/03/2018 05:08:00 DIS Emergency DULCE CONDE DO [facility] ER LOWER BACK LOWER ABD PAIN [id number] 10/31/2018 08:19:00 10/31/2018 23:59:59 CLS Preadmit LAKHWINDER POSADAS APRN [facility] RAD ABD PAIN [id number] 10/30/2018 23:53:00 10/31/2018 03:23:00 DIS Emergency MEAGAN CARDZOO MD [facility] ER BACK PAIN,ABD PAIN [id number] 08/10/2018 01:44:00 08/10/2018 04:04:00 DIS Emergency ALESIA DEVLIN, KOSTA Bennett [facility] ER DIARRHEA,RECTAL BLEEDING [id number] 06/30/2018 00:50:00 06/30/2018 01:26:00 DIS Emergency CAS DEVLIN, MEAGAN Rubio [facility] ER RT ARM [id number] NO INJURY [id number] 03/16/2018 20:28:00 03/16/2018 23:00:00 DIS Emergency YADIRA DEVLIN, SUDEEP [place] [facility] ER ABD ISSUES [id number] 10/27/2018 15:00:00 10/27/2018 23:59:59 [facility] [id number] 08/14/2018 14:00:00 Document Registration [id number] 03/01/2018 18:00:00 Document Registration [id number] 01/18/2018 15:00:00 Document Registration
== END 2018-11-03 11:46 | disposition home or self-care (01) ==
LOC: EDUNIT# 07:58 → ER 07:59
DX: R10.31 Right lower quadrant pain (principal); D68.2 Hereditary deficiency of other clotting factors; F41.9 Anxiety disorder, unspecified; F32.9 Major depressive disorder, single episode, unspecified; Z79.01 Long term (current) use of anticoagulants; Z88.2 Allergy status to sulfonamides; Z87.442 Personal history of urinary calculi; Z77.22 Contact with and (suspected) exposure to environmental tobacco smoke (acute) (chronic); Z90.49 Acquired absence of other specified parts of digestive tract
CPT/HCPCS: 36415; 74174; 80053; 83690; 85025; 85379

== ENCOUNTER 2019-03-09 14:20 | Emergency (ER) | payer OTHER ==
[~2019-03-09] VITALS: Ht 172.7 cm; Wt 136.1 kg
[~2019-03-09 14:20] MED LIST changes: -TRAZ-189 PO; +TRAZ-222 PO
[2019-03-09 15:01] LABS: BILIRUBIN,URINE NEGATIVE (NEGATIVE); CLARITY,URINE CLEAR; COLOR,URINE YELLOW; GLUCOSE, URINE (UA) NEGATIVE (NEGATIVE); KETONES,URINE NEGATIVE (NEGATIVE); LEUKOCYTE ESTERASE ,URINE NEGATIVE (NEGATIVE); NITRITE,URINE NEGATIVE (NEGATIVE); PH,URINE 6 (5-9); PROTEIN,URINE NEGATIVE (NEGATIVE); UROBILINOGEN,URINE NORMAL (NORMAL)
[2019-03-09 15:07] LABS: BACTERIA,URINE NEGATIVE /HPF; SQUAMOUS EPITHELIAL CELL,UR RARE /HPF
--- NOTE | 2019-03-09 15:25 | NUR ---
i missed iv x 1.
[2019-03-09 15:30] LABS: BASOPHILS % (AUTO) 1 % (0-10); EOSINOPHILS # (AUTO) 0.1 10^3/uL (0.0-0.3); EOSINOPHILS % (AUTO) 1 % (0-10); HEMATOCRIT 40 % (35-52); HEMOGLOBIN 13.4 G/DL (11.5-16.0); LYMPHOCYTES # (AUTO) 3.3 X 10^3 (1.0-4.0); LYMPHOCYTES % (AUTO) 40 % (12-44); MEAN CORPUSCULAR HEMOGLOBIN 31 PG (25-34); MEAN CORPUSCULAR HGB CONC 34 G/DL (32-36); MEAN CORPUSCULAR VOLUME 93 FL (80-99); MEAN PLATELET VOLUME 9.7 FL (7.4-10.4); MONOCYTES # (AUTO) 0.6 X 10^3 (0.0-1.0); MONOCYTES % (AUTO) 8 % (0-12); NEUTROPHILS # (AUTO) 4.3 X 10^3 (1.8-7.8); NEUTROPHILS % (AUTO) 51 % (42-75); PLATELET COUNT 312 10^3/uL (130-400); RED CELL DISTRIBUTION WIDTH 13.4 % (10.0-14.5); WHITE BLOOD COUNT 8.4 10^3/uL (4.3-11.0)
[2019-03-09 15:48] LABS: ALANINE AMINOTRANSFERASE 30 U/L (0-55); ALBUMIN 4.2 GM/DL (3.2-4.5); ALKALINE PHOSPHATASE 86 U/L (40-136); AMYLASE 65 U/L (25-125); BILIRUBIN,TOTAL 0.5 MG/DL (0.1-1.0); BUN/CREATININE RATIO 11; CALCIUM 9.8 MG/DL (8.5-10.1); CARBON DIOXIDE 19 MMOL/L (21-32); CHLORIDE 108 MMOL/L (98-107); CREATININE SERUM 0.81 MG/DL (0.60-1.30); GFR ESTIMATED > 60; GLUCOSE 87 MG/DL (70-105); LIPASE 34 U/L (8-78); POTASSIUM 3.6 MMOL/L (3.6-5.0); SODIUM 139 MMOL/L (135-145); TOTAL PROTEIN 7.5 GM/DL (6.4-8.2)
--- NOTE | 2019-03-09 16:00 | Diagnostic Imaging Report ---
EXAMINATION: Acute abdomen series. HISTORY: Right-sided abdominal pain. COMPARISON: 11/03/2018. FINDINGS: Lungs are clear without edema or pneumonia. No pleural effusion or pneumothorax. Heart size is normal. Bowel gas pattern is normal. Suture line is seen in the right upper quadrant. No free air is seen. No osseous lesions. IMPRESSION: Clear lungs and normal bowel gas pattern. Dictated by: Dictated on workstation # [id number]
--- NOTE | 2019-03-09 16:04 | Diagnostic Imaging Report ---
PROCEDURE: CT urinary tract, rule out kidney stone. TECHNIQUE: Multiple contiguous axial images were obtained through the abdomen and pelvis without the use of intravenous contrast. Auto Exposure Controls were utilized during the CT exam to meet ALARA standards for radiation dose reduction. INDICATION: Right-sided abdominal pain. FINDINGS: Comparison is 10/31/2018. Limited views of the lower thorax are normal. Liver is normal. No focal liver lesions are seen. Gallbladder is normal. No biliary ductal dilation. Pancreas is normal. Spleen is normal. Adrenal glands are normal. Kidneys are normal. No stones or hydronephrosis. No ureteral calculi are seen. Urinary bladder is normal. Uterus and adnexa are normal. No dilated loops of large or small bowel. There has been a partial small bowel resection. There is some chronic stranding about the ascending colon. No free fluid or air. No abdominal or pelvic lymphadenopathy. Abdominal aorta is normal in caliber. No suspicious osseous lesions. IMPRESSION: 1. No renal or ureteral calculi. Dictated by: Dictated on workstation # [id number]
[2019-03-09] MEDS ORDERED: PANT40TA2 PO (16:23)
[2019-03-09] MEDS ORDERED: METH4TAB PO (16:23)
[2019-03-09] MEDS ORDERED: HYOS0.1283 SL (16:23)
[2019-03-09] MEDS ORDERED: DICY20TA10 PO (16:23)
[2019-03-09] MEDS ORDERED: CIPR-225 PO (16:23)
[2019-03-09] MEDS ORDERED: METR500T PO (16:23)
[2019-03-09] MEDS ORDERED: ONDA4TAB11 PO (16:24)
--- NOTE | 2019-03-09 16:24 | ED Abdominal Pain ---
General Chief Complaint: Abdominal/GI Problems Stated Complaint: LOWER R ABD PAIN Nursing Triage Note: Pt c/o R sided abdominal pain that has persisted for two weeks. Pt reports pain radiates from front to back. Pt reports increased temperature of 99.2-99.8 since Tuesday. Pt reports taking 1 gm of tylenol last night. 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 SALAS ON Tuesday03/05/19 FOR THIS PROBLEM, WHEN SHE STARTED RUNNING FEVER--NO TESTS OR RX'S. PT DOES HAVE A COLONOSCOPY SCHEDULED FOR 04/03/19 PT HAS HAD THIS EXACT SAME PROBLEM --WAS SEEN HERE 11/03/2018 WELL BEING SEEN AT OTHER LOCAL FACILITIES FOR EXACT SAME SYMPTOMS PCP: DIONI, WORKS AT [employer] IN [place] Allergies and Home Medications Allergies Coded Allergies: Sulfa (Sulfonamide Antibiotics) (Verified Allergy, Unknown, 08/10/18) Home Medications Ciprofloxacin HCl 500 Mg Tablet, 500 MG PO BID Prescribed by: DULCE CONDE on 11/03/18 0504 Ciprofloxacin HCl 500 Mg Tablet, 500 MG PO BID Prescribed by: DULCE CONDE on 03/09/19 1623 Dicyclomine HCl 20 Mg Tablet, 20 MG PO Q6H Prescribed by: DULCE CONDE on 11/03/18 0504 Dicyclomine HCl 20 Mg Tablet, 20 MG PO Q6H Prescribed by: DULCE CONDE on 03/09/19 1623 Hydrocodone Bit/Acetaminophen 1 Tab Tab, 1 EACH PO Q4-6HR PRN for PAIN-MODERATE Prescribed by: MEAGAN CARDOZO on 10/31/18 0314 Hyoscyamine Sulfate 0.125 Mg Tab.subl, 1-2 TAB SL Q4H Prescribed by: DULCE CONDE on 11/03/18 0504 Hyoscyamine Sulfate 0.125 Mg Tab.subl, 1-2 TAB SL Q4H Prescribed by: DULCE CONDE on 03/09/19 162 Methylprednisolone 4 Mg Tab.ds.pk, 4 MG PO UD Prescribed by: DULCE CONDE on 03/09/19 162 Metronidazole 500 Mg Tablet, 500 MG PO QID Prescribed by: DULCE CONDE on 03/09/19 162 Ondansetron 4 Mg Tab.rapdis, 4 MG PO Q4H Prescribed by: DULCE CONDE on 03/09/19 162 Pantoprazole Sodium 40 Mg Tablet.dr, 40 MG PO DAILY Prescribed by: DULCE CONDE on 03/09/191622 Patient Home Medication List Home Medication List Reviewed: Yes Review of Systems Review of Systems Constitutional: no symptoms reported Respiratory: No Symptoms Reported Cardiovascular: No Symptoms Reported Gastrointestinal: See HPI, Abdominal Pain, Diarrhea, Nausea; Denies Vomiting Genitourinary: No Symptoms Reported Musculoskeletal: see HPI, back pain Skin: no symptoms reported Psychiatric/Neurological: No Symptoms Reported Endocrine: No Symptoms Reported Hematologic/Lymphatic: No Symptoms Reported, See HPI Past Qlosppp-Sxrtfz-Pzfwsf Hx Patient Social History Alcohol Use: Rarely Uses Recreational Drug Use: No Smoking Status: Former Smoker Type Used: Cigarettes 2nd Hand Smoke Exposure: No Recent Foreign Travel: No Contact w/Someone Who Travel: No Recent Infectious Disease Expo: No Recent Hopitalizations: No Immunizations Up To Date Tetanus Booster (TDap): Unknown Seasonal Allergies Seasonal Allergies: No Past Medical History Surgeries: Yes (SMALL BOWEL RESECTION 12/2016) Abdominal, Bowel Surgery Respiratory: No Cardiac: No Neurological: No Reproductive Disorders: No Genitourinary: Yes (INCIDENTAL FINDING OF KIDNEY STONES ON CT--HAS NEVER PASSED ONE) Kidney Stones Gastrointestinal: Yes (SMALL BOWEL RESECTION DUE TO MESENTERIC INFARCT DUE TO BLOOD CLOT DUE TO FACTOR 5 LEIDEN ) Chronic Diarrhea, Irritable Bowel Musculoskeletal: No Endocrine: Yes (MORBID OBESITY) HEENT: No Cancer: No Psychosocial: Yes Anxiety, Depression Integumentary: No Blood Disorders: Yes (FACTOR 5 LEIDEN DEFICIENCY--ON ELIQUIS) Adverse Reaction/Blood Tranf: No Physical Exam Vital Signs Vital Signs - First Documented 03/09/19 14:30 Temp 99.7 Pulse 88 Resp 18 B/P (MAP) 134/102 (113) Pulse Ox 97 O2 Delivery Room Air Capillary Refill : Less Than 3 Seconds Height/Weight/BMI Height: 5'8.00" Weight: 300lbs. oz. 136.929913ov; BMI Method:Stated General Appearance: obese, other (HOLDING RIGHT MID ABDOMEN/RIGHT FLANK AREA. ) Respiratory: normal breath sounds, no respiratory distress, no accessory muscle use Cardiovascular: regular rate, rhythm, no murmur Gastrointestinal: soft, tenderness (RIGHT FLANK, RIGHT MID AND LOWER ABDOMEN TENDERNESS) Extremities: normal capillary refill Back: no vertebral tenderness, CVA tenderness (R) Neurologic/Psychiatric: selling manager II-XII nml as tested, no motor/sensory deficits, alert, normal mood/affect, oriented x 3 Skin: normal color, warm/dry Progress/Results/Core Measures Results/Orders Lab Results Laboratory Tests Test 03/09/19 14:35 03/09/19 15:20 Range/Units Urine Color YELLOW Urine Clarity CLEAR Urine pH 6 5-9 Urine Specific [place] 1.015 L 1.016-1.022 Urine Protein NEGATIVE NEGATIVE Urine Glucose (UA) NEGATIVE NEGATIVE Urine Ketones NEGATIVE NEGATIVE Urine Nitrite NEGATIVE NEGATIVE Urine Bilirubin NEGATIVE NEGATIVE Urine Urobilinogen NORMAL NORMAL MG/DL Urine Leukocyte Esterase NEGATIVE NEGATIVE Urine RBC (Auto) NEGATIVE NEGATIVE Urine RBC NONE /HPF Urine WBC NONE /HPF Urine Squamous Epithelial Cells RARE /HPF Urine Crystals NONE /LPF Urine Bacteria NEGATIVE /HPF Urine Casts NONE /LPF Urine Mucus NEGATIVE /LPF Urine Culture Indicated NO White Blood Count 8.4 4.3-11.0 10^3/uL Red Blood Count 4.26 L 4.35-5.85 10^6/uL Hemoglobin 13.4 11.5-16.0 G/DL Hematocrit 40 35-52 % Mean Corpuscular Volume 93 80-99 FL Mean Corpuscular Hemoglobin 31 25-34 PG Mean Corpuscular Hemoglobin Concent 34 32-36 G/DL Red Cell Distribution Width 13.4 10.0-14.5 % Platelet Count 312 130-400 10^3/uL Mean Platelet Volume 9.7 7.4-10.4 FL Neutrophils (%) (Auto) 51 42-75 % Lymphocytes (%) (Auto) 40 12-44 % Monocytes (%) (Auto) 8 0-12 % Eosinophils (%) (Auto) 1 0-10 % Basophils (%) (Auto) 1 0-10 % Neutrophils # (Auto) 4.3 1.8-7.8 X 10^3 Lymphocytes # (Auto) 3.3 1.0-4.0 X 10^3 Monocytes # (Auto) 0.6 0.0-1.0 X 10^3 Eosinophils # (Auto) 0.1 0.0-0.3 10^3/uL Basophils # (Auto) 0.0 0.0-0.1 10^3/uL Sodium Level 139 135-145 MMOL/L Potassium Level 3.6 3.6-5.0 MMOL/L Chloride Level 108 H 98-107 MMOL/L Carbon Dioxide Level 19 L 21-32 MMOL/L Anion Gap 12 5-14 MMOL/L Blood Urea Nitrogen 9 7-18 MG/DL Creatinine 0.81 0.60-1.30 MG/DL Estimat Glomerular Filtration Rate > 60 BUN/Creatinine Ratio 11 Glucose Level 87 70-105 MG/DL Calcium Level 9.8 8.5-10.1 MG/DL Corrected Calcium 9.6 8.5-10.1 MG/DL Total Bilirubin 0.5 0.1-1.0 MG/DL Aspartate Amino Transf (AST/SGOT) 20 5-34 U/L Alanine Aminotransferase (ALT/SGPT) 30 0-55 U/L Alkaline Phosphatase 86 40-136 U/L Total Protein 7.5 6.4-8.2 GM/DL Albumin 4.2 3.2-4.5 GM/DL Amylase Level 65 25-125 U/L Lipase 34 8-78 U/L My Orders Orders - DULCE CONDE DO Ed Iv/Invasive Line Start (03/09/19 14:45) Urine Bedside (03/09/19 14:45) Ct Abd/Pelvis Wo(Kidney Stone) (03/09/19 14:45) Acute Abd Series (03/09/19 14:45) Amylase (03/09/19 14:45) Cbc With Automated Diff (03/09/19 14:45) Comprehensive Metabolic Panel (03/09/19 14:45) Lipase (03/09/19 14:45) Ua Culture If Indicated (03/09/19 14:45) Ketorolac Injection (Toradol Injection) (03/09/19 16:30) Levofloxacin Tablet (Levaquin Tablet) (03/09/19 16:30) Metronidazole Tablet (Flagyl Tablet) (03/09/19 16:30) Vital Signs/I&O 03/09/19 14:30 Temp 99.7 Pulse 88 Resp 18 B/P (MAP) 134/102 (113) Pulse Ox 97 O2 Delivery Room Air Blood Pressure Mean: 113 Progress Progress Note : Progress Note SYMPTOMS IMPROVED AT DISMISSAL NO DETERIORATION IN PT'S CONDITION DURING ER STAY Diagnostic Imaging Comments ABDOMEN XRAYS--NO ACUTE PROCESS CT ABDOMEN / PELVIS--CHRONIC STRANDING OF ASCENDING COLON, OTHERWISE NORMAL PER RADIOLOGIST REPORTS AT 1611 Reviewed: Reviewed by Me Departure Impression Primary Impression: RECURRENT RIGHT FLANK AND RIGHT MID ABDOMINAL PAIN Additional Impression: COLITIS OF ASCENDING COLON Disposition: HOME, SELF-CARE Condition: Stable Departure-Patient Inst. Referrals: YAMILE SALAS ERIN R APRN (PCP) Primary Care Physician Patient Instructions: Acute Abdomen (Belly Pain), Adult (DC), Colitis (DC) Add. Discharge Instructions: CLEAR LIQUIDS--WATER, BROTH, JELLO, GATORADE WHEN PAIN IS GONE, ADD BRATS DIET TO CLEAR LIQUIDS--BANANAS, RICE, APPLESAUCE, TOAST, SALTINES FOLLOW UP WITH DR. SALAS ON TUESDAY, RETURN TO ER IF WORSE All discharge instructions reviewed with patient and/or family. Voiced understan katerina. Scripts Ondansetron (Ondansetron Odt) 4 Mg Tab.rapdis 4 MG PO Q4H for Nausea/Vomiting, #10 TAB Prov: ELTON,DULCE K DO 03/09/19 Metronidazole (Flagyl) 500 Mg Tablet 500 MG PO QID for FOR INFECTION, #40 TAB Prov: ELTON,DULCE K DO 03/09/19 Ciprofloxacin HCl (Cipro) 500 Mg Tablet 500 MG PO BID, #20 TAB Prov: ELTON,DULCE K DO 03/09/19 Methylprednisolone (Medrol) 4 Mg Tab.ds.pk 4 MG PO UD, #1 PKG Prov: ELTON,DULCE K DO 03/09/19 Pantoprazole Sodium (Protonix) 40 Mg Tablet.dr 40 MG PO DAILY, #15 TAB Prov: ELTON,DULCE K DO 03/09/19 Hyoscyamine Sulfate (Levsin-Sl) 0.125 Mg Tab.subl 1-2 TAB SL Q4H for Abdominal Pain, #15 TAB Prov: DULCE CONDE DO 03/09/19 Dicyclomine HCl (Dicyclomine HCl) 20 Mg Tablet 20 MG PO Q6H for Abdominal Pain, #20 TAB Prov: DULCE CONDE DO 03/09/19 DULCE CONDE DO Mar 09, 2019 16:24
[2019-03-09] MEDS ORDERED: metroNIDAZOLE 500 MG (FLAGYL) TAB PO ONE (16:30)
[2019-03-09] MEDS ORDERED: LEVOFLOXACIN 500 MG TAB (LEVAQUIN) PO ONE (16:30)
[2019-03-09] MEDS ORDERED: KETOROLAC 30 MG/ML VIAL IVP ONE (16:30)
[2019-03-09 16:58] VITALS: BP 129/88
--- OUTSIDE RECORDS SUMMARY | 2019-03-09 18:55 | XMS REPORT ---
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 637526096 Problem Major depressive disorder, recurrent, moderate F33.1 Active 98219439 Problem Irritable bowel syndrome with diarrhea K58.0 Active 677776001 Problem Other chronic pain G89.29 Active 58303238 Problem Factor V Leiden D68.51 Active 374683500 Problem Current moderate episode of major depressive disorder without prior episode F32.1 Active 18493800 Problem SUYAPA (generalized anxiety disorder) F41.1 Active 06753458 Problem Short bowel syndrome K91.2 Active 35266828 Problem PTSD (post-traumatic stress disorder) F43.10 Active 53960883 ALLERGIES No Information ENCOUNTERS Encounter Location Date Diagnosis [facility] [id number] [address] January, [facility] [id number] [address] January, [facility] [id number] [place] [address] January, [facility] [id number] [address] January, Pain in left knee M25.562 ; Other chronic pain G89.29 and Post-nasal drip R09.82 [facility] [address] [id number] [place] [address] Dec, Gastroenteritis K52.9 [facility] [id number] [place] [address] Dec, Anal lesion K62.9 [facility] [id number] [place] [address] Dec, Anal lesion K62.9 and Morbid obesity E66.01 [facility] [id number] [place] [address] Dec, [facility] [id number] [place] [address] Dec, Skin fissure R23.4 and Morbid obesity E66.01 [facility] [address] [id number] [place] [address] Dec, [facility] [address] [id number] [place] [address] Dec, [facility] [id number] [place] [address] Dec, Major depressive disorder, recurrent, moderate F33.1 and SUYAPA (generalized anxiety disorder) F41.1 [facility] [address] [id number] [place] [address] Nov, [facility] [address] [place] [address] Nov, SUYAPA (generalized anxiety disorder) F41.1 and Major depressive disorder, recurrent, moderate F33.1 [facility] [address] [place] [address] Nov, Morbid obesity E66.01 ; Sore throat J02.9 and Strep pharyngitis J02.0 [facility] [address] [address] Nov, Dysfunction of both eustachian tubes H69.83 and Morbid obesity E66.01 [facility] [id number] [address] 14 Nov, 2018 Current moderate episode of major depressive disorder without prior episode F32.1 ; SUYAPA (generalized anxiety disorder) F41.1 and Morbid obesity E66.01 [facility] [address] [id number] [id number] Nov, [facility] [address] [place] [address] Nov, Encounter for Depo-Provera contraception Z30.42 [address] [place] [address] Nov, Major depressive disorder, recurrent, moderate F33.1 ; Generalized anxiety disorder F41.1 and PTSD (post-traumatic stress disorder) F43.10 [facility] [address] [id number] [place] [address] Oct, [facility] [id number] [id number] 22 Oct, 2018 Caries K02.9 ; Oral health maintenance status requiring routine preventive dental care K08.9 and Dental examination Z01.20 [facility] [address] [id number] [place] [address] Oct, [facility] [address] [id number] [place] [address] Oct, Irritable bowel syndrome with diarrhea K58.0 [id number] [address] 15 Oct, 2018 Abdominal pain R10.9 [facility] [address] [id number] [place] [address] 13 Oct, 2018 Irritable bowel syndrome with diarrhea K58.0 and Abdominal pain R10.9 [facility] [id number] [address] 11 Oct, 2018 Current moderate episode of major depressive disorder without prior episode F32.1 ; SUYAPA (generalized anxiety disorder) F41.1 and BMI 45.0-49.9, adult Z68.42 [facility] [address] [place] [id number] [place] [address] 06 Oct, 2018 BMI 45.0-49.9, adult Z68.42 and Gastroenteritis K52.9 [address] [place] [id number] [place] [address] 04 Oct, 2018 [id number] [place] [address] Sep, Current moderate episode of major depressive disorder without prior episode F32.1 ; SUYAPA (generalized anxiety disorder) F41.1 and BMI 45.0-49.9, adult Z68.42 [facility] [id number] [place] [address] Sep, [facility] [address] [place] [id number] [place] [address] 17 Sep, 2018 [facility] [address] [id number] [place] [address] Sep, Recurrent major depressive disorder, in full remission F33.42 [facility] [address] [place] [address] 10 Sep, 2018 Acute non-recurrent frontal sinusitis J01.10 and BMI 45.0-49.9, adult Z68.42 [facility] [address] [id number] [place] [address] Aug, [facility] [address] [id number] [place] [address] Aug, Recurrent major depressive disorder, in full remission F33.42 [facility] [address] [id number] [place] [address] 10 Aug, 2018 BMI 45.0-49.9, adult Z68.42 ; Irritable bowel syndrome with diarrhea K58.0 ; Perirectal skin irritation K62.89 ; Well woman exam Z01.419 ; Encounter for Depo-Provera contraception Z30.42 ; Encounter for other contraceptive management Z30.8 and Recurrent major depressive disorder, in full remission F33.42 [facility] [address] [facility] [id number] [place] [address] Aug, [facility] [address] [id number] [place] [address] Jul, [facility] [address] [id number] [place] [address] Jul, [facility] [address] [id number] [place] [address] Jul, Irritable bowel syndrome with diarrhea K58.0 [facility] [address] [id number] [place] [address] Jun, Irritable bowel syndrome with diarrhea K58.0 [facility] [address] [id number] [place] [address] Jun, Irritable bowel syndrome with diarrhea K58.0 [facility] [address] [id number] [place] [address] Jun, [facility] [address] [id number] [place] [address] Jun, Irritable bowel syndrome with diarrhea K58.0 [facility] [address] [id number] [place] [address] Jun, [facility] [address] [id number] [place] [address] May, Acute nasopharyngitis J00 ; Encounter for other contraceptive management Z30.8 ; Encounter for Depo-Provera contraception Z30.42 and BMI 45.0-49.9, adult Z68.42 [facility] [place] [address] [facility] [id number] [place] [id number] Apr, [facility] [address] [id number] [place] [address] Apr, [facility] [address] [id number] [place] [address] Apr, Factor V Leiden D68.51 [facility] [address] [id number] [place] [address] Apr, Irritable bowel syndrome with diarrhea K58.0 ; Nausea R11.0 ; 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 ; Irregular menstrual bleeding N92.6 and BMI 45.0-49.9, adult Z68.42 [facility] [address] [id number] [place] [address] 27 Feb, 2018 Well woman exam with routine gynecological exam Z01.419 ; Screening for STDs (sexually transmitted diseases) Z11.3 ; BMI 45.0-49.9, adult Z68.42 and Vaginal itching N89.8 [facility] [address] [id number] [place] [address] 19 Feb, 2018 control counseling Z30.09 and BMI 45.0-49.9, adult Z68.42 [facility] [address] [id number] [place] [address] 13 Feb, 2018 [facility] [address] [id number] [place] [address] Feb, [facility] [address] [id number] [place] [address] Feb, [facility] [address] [id number] [place] [address] January, Recurrent major depressive disorder, in full remission F33.42 ; Nausea R11.0 ; Occipital lymphadenopathy R59.0 and BMI 45.0-49.9, adult Z68.42 [facility] [address] [id number] [place] [address] January, Irritable bowel syndrome with diarrhea K58.0 [facility] [address] [id number] [place] [address] January, [facility] [address] [id number] [place] [address] January, Irritable bowel syndrome with diarrhea K58.0 ; Factor V Leiden D68.51 ; Perirectal skin irritation K62.89 ; Recurrent major depressive disorder, in full remission F33.42 and BMI 45.0-49.9, adult Z68.42 IMMUNIZATIONS No Known Immunizations SOCIAL HISTORY Never Assessed REASON FOR VISIT Intake PLAN OF CARE Activity Details Follow Up 2 Weeks Reason: VITAL SIGNS MEDICATIONS Medication Instructions Dosage Frequency Start Date End Date Duration Status Eliquis 5 mg Orally 2 times a day 1 tablet 12h Active Trazodone HCl 100 mg Orally Once a day 1-2 tabs 24h Active Questran 4 GM/DOSE Orally Twice a day 1 scoop 12h Aug, 30 day(s) Active Ondansetron 8 MG Orally every 8 hrs 1 tablet on the tongue and allow to dissolve 8h Oct, 15 days Active Metronidazole 500 mg Orally 3 times a day 1 tablet 8h Oct, 7 days Active Depo-Provera 150 MG/ML Intramuscular every 12 weeks 1 ml May, May, 365 days Active Wellbutrin XL 300 MG Orally Once a day 1 tablet in the morning 24h Sep, Active Lomotil 2.5-0.025 MG Orally 3 times a day 1 tablet as needed 8h Aug, 10 days Active Viberzi 75 MG Orally Twice a day 1 tablet with food 12h 90 days Active Citalopram Hydrobromide 20 MG Orally Once a day 1 tablet 24h Active RESULTS No Results PROCEDURES Procedure Date Ordered Result Body Site Psych diagnostic evaluation, established patient November 07, 2018 INSTRUCTIONS MEDICATIONS ADMINISTERED No Known Medications MEDICAL (GENERAL) HISTORY Type Description Date Medical History depression Medical History short bowel Medical History insomnia Medical History no seizure hx Medical History Factor V Surgical History small bowel resection X 2 2017 Hospitalization History surgery Hospitalization History Rectal bleeding
--- OUTSIDE RECORDS SUMMARY | 2019-03-09 18:55 | XMS REPORT ---
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 109808480 Problem Major depressive disorder, recurrent, moderate F33.1 Active 64263972 Problem Irritable bowel syndrome with diarrhea K58.0 Active 464296160 Problem Other chronic pain G89.29 Active 30470269 Problem Factor V Leiden D68.51 Active 228951242 Problem Current moderate episode of major depressive disorder without prior episode F32.1 Active 30155111 Problem SUYAPA (generalized anxiety disorder) F41.1 Active 50304180 Problem Short bowel syndrome K91.2 Active 59462817 Problem PTSD (post-traumatic stress disorder) F43.10 Active 30640923 ALLERGIES No Information ENCOUNTERS Encounter Location Date Diagnosis [facility] [id number], [place] [address] Feb, [facility] [address], [place] [address] January, [facility] [id number] [place] [address] January, [facility] [id number], [place] [address] January, Current moderate episode of major depressive disorder without prior episode F32.1 ; SUYAPA (generalized anxiety disorder) F41.1 and Morbid obesity E66.01 [facility] [address], [place] [address] January, Pain in left knee M25.562 ; Other chronic pain G89.29 and Post-nasal drip R09.82 [facility] [address] [id number] [place] [address] Dec, Gastroenteritis K52.9 [id number] [place] [address] Dec, Anal lesion K62.9 [facility] [id number] [place] [address] Dec, Anal lesion K62.9 and Morbid obesity E66.01 [facility] [id number] [place] [address] Dec, [facility] [id number] [place] [address] Dec, Skin fissure R23.4 and Morbid obesity E66.01 [facility] [address] [id number] [place] [address] Dec, [facility] [address] [id number] [place] [address] Dec, [place] [address] [place] [address] Dec, Major depressive disorder, recurrent, moderate F33.1 and SUYAPA (generalized anxiety disorder) F41.1 [facility] [address] [id number] [place] [address] Nov, [address] [id number] [place] [address] Nov, SUYAPA (generalized anxiety disorder) F41.1 and Major depressive disorder, recurrent, moderate F33.1 [facility] [address] [place] [address] Nov, Morbid obesity E66.01 ; Sore throat J02.9 and Strep pharyngitis J02.0 [facility] [address], [place] [address] 18 Nov, 2018 Dysfunction of both eustachian tubes H69.83 and Morbid obesity E66.01 [facility] [address] [address] 14 Nov, 2018 Current moderate episode of major depressive disorder without prior episode F32.1 ; SUYAPA (generalized anxiety disorder) F41.1 and Morbid obesity E66.01 [facility] [id number] [address] Nov, [facility] [id number] [place] [address] 05 Nov, 2018 Encounter for Depo-Provera contraception Z30.42 [place] [id number] [place] [address] Nov, Major depressive disorder, recurrent, moderate F33.1 ; Generalized anxiety disorder F41.1 and PTSD (post-traumatic stress disorder) F43.10 [facility] [address] [id number] [place] [address] Oct, [facility] [id number] [id number] Oct, Caries K02.9 ; Oral health maintenance status requiring routine preventive dental care K08.9 and Dental examination Z01.20 [facility] [address] [id number] [place] [address] Oct, [facility] [address] [id number] [place] [address] Oct, Irritable bowel syndrome with diarrhea K58.0 [facility] [id number] [address] 15 Oct, 2018 Abdominal pain R10.9 [facility] [address] [id number] [place] [address] 13 Oct, 2018 Irritable bowel syndrome with diarrhea K58.0 and Abdominal pain R10.9 [facility] [address], [place] [address] 11 Oct, 2018 Current moderate episode of major depressive disorder without prior episode F32.1 ; SUYAPA (generalized anxiety disorder) F41.1 and BMI 45.0-49.9, adult Z68.42 [facility] [id number] [place] [address] 06 Oct, 2018 BMI 45.0-49.9, adult Z68.42 and Gastroenteritis K52.9 [address] [place] [address] [place] [address] 04 Oct, 2018 [address] [id number] [place] [address] Sep, Current moderate episode of major depressive disorder without prior episode F32.1 ; SUYAPA (generalized anxiety disorder) F41.1 and BMI 45.0-49.9, adult Z68.42 [facility] [address], [place] [address] Sep, [facility] [address] [place] [address] Sep, [facility] [address] [id number] [place] [address] Sep, Recurrent major depressive disorder, in full remission F33.42 [facility] [address], [place] [address] Sep, Acute non-recurrent frontal sinusitis J01.10 and BMI 45.0-49.9, adult Z68.42 [facility] [address] [id number] [place] [address] Aug, [facility] [address] [id number] [place] [address] Aug, Recurrent major depressive disorder, in full remission F33.42 [facility] [address] [id number] [place] [address] Aug, BMI 45.0-49.9, adult Z68.42 ; Irritable bowel syndrome with diarrhea K58.0 ; Perirectal skin irritation K62.89 ; Well woman exam Z01.419 ; Encounter for Depo-Provera contraception Z30.42 ; Encounter for other contraceptive management Z30.8 and Recurrent major depressive disorder, in full remission F33.42 [facility] [address] [facility] [id number] [place] [address] Aug, [facility] [address] [id number] [place] [address] Jul, [facility] [address] [id number] [place] [address] Jul, [facility] [address] [id number] [place] [address] Jul, Irritable bowel syndrome with diarrhea K58.0 [facility] [address] [id number] [place] [address] Jun, Irritable bowel syndrome with diarrhea K58.0 [facility] [address] [id number] [place] [address] Jun, Irritable bowel syndrome with diarrhea K58.0 [facility] [address] [id number] [place] [address] Jun, [facility] [address] [id number] [place] [address] Jun, Irritable bowel syndrome with diarrhea K58.0 [facility] [address] [id number] [place] [address] Jun, [facility] [address] [id number] [place] [address] May, Acute nasopharyngitis J00 ; Encounter for other contraceptive management Z30.8 ; Encounter for Depo-Provera contraception Z30.42 and BMI 45.0-49.9, adult Z68.42 [facility] [address] [facility] [id number] [place] [address] Apr, [facility] [address] [id number] [place] [address] Apr, [facility] [address] [id number] [place] [address] Apr, Factor V Leiden D68.51 [facility] [address] [id number] [place] [address] Apr, Irritable bowel syndrome with diarrhea K58.0 ; Nausea R11.0 ; 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 ; Irregular menstrual bleeding N92.6 and BMI 45.0-49.9, adult Z68.42 [facility] [address] [id number] [place] [address] 27 Feb, 2018 Well woman exam with routine gynecological exam Z01.419 ; Screening for STDs (sexually transmitted diseases) Z11.3 ; BMI 45.0-49.9, adult Z68.42 and Vaginal itching N89.8 [facility] [address] [id number] [place] [address] 19 Feb, 2018 control counseling Z30.09 and BMI 45.0-49.9, adult Z68.42 [facility] [address] [id number] [place] [address] Feb, [facility] [address] [id number] [place] [address] Feb, [facility] [address] [id number] [place] [address] Feb, [facility] [address] [id number] [place] [address] January, Recurrent major depressive disorder, in full remission F33.42 ; Nausea R11.0 ; Occipital lymphadenopathy R59.0 and BMI 45.0-49.9, adult Z68.42 [facility] [address] [id number] [place] [address] January, Irritable bowel syndrome with diarrhea K58.0 [facility] [address] [id number] [place] [address] January, [facility] [address] [id number] [place] [address] January, Irritable bowel syndrome with diarrhea K58.0 ; Factor V Leiden D68.51 ; Perirectal skin irritation K62.89 ; Recurrent major depressive disorder, in full remission F33.42 and BMI 45.0-49.9, adult Z68.42 IMMUNIZATIONS No Known Immunizations SOCIAL HISTORY Never Assessed REASON FOR VISIT Medication request PLAN OF CARE VITAL SIGNS MEDICATIONS Medication Instructions Dosage Frequency Start Date End Date Duration Status Diflucan 150 MG Orally x1 1 tablet Nov, 1 dose Active RESULTS No Results PROCEDURES No Known procedures INSTRUCTIONS MEDICATIONS ADMINISTERED No Known Medications MEDICAL (GENERAL) HISTORY Type Description Date Medical History depression Medical History short bowel Medical History insomnia Medical History no seizure hx Medical History Factor V Surgical History small bowel resection X 2 2017 Hospitalization History surgery Hospitalization History Rectal bleeding
--- OUTSIDE RECORDS SUMMARY | 2019-03-09 18:58 | XMS REPORT | Continuity of Care Document ---
Author Organization Unknown Address Unknown Allergies Active Description Code Type Severity Reaction Onset Reported/Identified Relationship to Patient Clinical Status Yes SULFA (SULFONAMIDE ANTIBIOTICS) SEVERE DERMATOLOGICAL - ALEXANDRA Yes Sulfa (Sulfonamide Antibiotics) [id number] Drug Allergy Unknown N/A 08/10/2018 Medications There is no data. Problems Date [...] R20.0 ANESTHESIA OF SKIN 07/04/2018 MEAGAN CARDOZO MD Ot Z87.19 PERSONAL HISTORY [...] UNSPECIFIED 08/10/2018 KOSTA DUMAS MD Ot Z79.52 UX ARCHITECT (CURRENT) USE OF SYSTEMIC STER 08/10/2018 KOSTA [...] UNSPECIFIED 08/14/2018 KOSTA DUMAS MD Ot Z79.52 FDC (CURRENT) USE OF SYSTEMIC STER 08/14/2018 KOSTA DUMAS MD Ot Z87.19 PERSONAL HISTORY OF OTHER DISEASES OF TH 08/14/2018 KOSTA DUMAS MD Ot Z88.2 ALLERGY STATUS TO SULFONAMIDES STATUS 08/14/2018 KOSTA DUMAS MD D Ot Z90.49 ACQUIRED ABSENCE OF OTHER SPECIFIED [...] IRRITABLE BOWEL SYNDROME WITHOUT DIARRHE 11/02/2018 MEAGAN ACRDOZO MD Ot R10.31 RIGHT LOWER QUADRANT PAIN 11/02/2018 MEAGAN CARDOZO MD Ot Z88.2 ALLERGY STATUS TO SULFONAMIDES STATUS 11/02/2018 MEAGAN CARDOZO MD Ot Z90.49 ACQUIRED ABSENCE OF OTHER SPECIFIED PART 11/03/2018 ELTON DO DULCE K Ot 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 11/03/2018 ELTON DO, DULCE K Ot F32.9 MAJOR DEPRESSIVE DISORDER, SINGLE EPISOD 11/03/2018 ELTON DO DULCE K Ot F41.9 ANXIETY DISORDER, UNSPECIFIED 11/03/2018 ELTON DO DULCE K Ot K52.9 NONINFECTIVE GASTROENTERITIS AND COLITIS 11/03/2018 ELTON DO DULCE K Ot K58.9 IRRITABLE BOWEL SYNDROME WITHOUT DIARRHE 11/03/2018 ELTON DO DULCE K Ot N20.0 CALCULUS OF KIDNEY 11/03/2018 ELTON DO DULCE K Ot R10.31 RIGHT LOWER QUADRANT PAIN 11/03/2018 ELTON TRENTDULCE Ot Z87.19 PERSONAL HISTORY OF OTHER DISEASES OF 11/03/2018 ELTON TRENTDULCE Ot Z87.891 PERSONAL HISTORY OF NICOTINE DEPENDENCE 11/03/2018 ELTON DULCE Ot Z88.2 ALLERGY STATUS TO SULFONAMIDES STATUS 11/03/2018 ELTON TRENT DULCE K Ot Z90.49 ACQUIRED ABSENCE OF OTHER SPECIFIED PART 11/03/2018 ELTON TRENT DULCE K Ot Z98.890 OTHER SPECIFIED POSTPROCEDURAL STATES 11/03/2018 KRYSTYNA DEVLIN, MAKI Rodriguez Ot 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 11/03/2018 KRYSTYNA DEVLIN, MAKI Rodriguez Ot F32.9 MAJOR DEPRESSIVE DISORDER, SINGLE EPISOD 11/03/2018 KRYSTYNA DEVLIN, MAKI Rodriguez Ot F41.9 ANXIETY DISORDER, UNSPECIFIED 11/03/2018 MAKI GREENWOOD MD Ot R10.31 RIGHT LOWER QUADRANT PAIN 11/03/2018 MAKI GREENWOOD MD Ot Z77.22 CNTCT W AND EXPSR TO ENVIRON TOBACCO SMO 11/03/2018 MAKI GREENWOOD MD Ot Z79.01 UX ARCHITECT (CURRENT) USE OF ANTICOAGULANT 11/03/2018 KRYSTYNA DEVLIN, MAKI Rodriguez Ot Z87.442 PERSONAL HISTORY OF URINARY CALCULI 11/03/2018 KRYSTYNA DEVLIN, MAKI Rodriguez Ot Z88.2 ALLERGY STATUS TO SULFONAMIDES STATUS 11/03/2018 KRYSTYNA DEVLIN, MAKI Rodriguez Ot Z90.49 ACQUIRED ABSENCE OF OTHER SPECIFIED PART 11/07/2018 ELTON DULCE Ot 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 11/07/2018 DULCE CONDE DO Ot F32.9 MAJOR DEPRESSIVE DISORDER, SINGLE EPISOD 11/07/2018 DULCE CONDE DO Ot F41.9 ANXIETY DISORDER, UNSPECIFIED 11/07/2018 DULCE CONDE DO Ot K52.9 NONINFECTIVE GASTROENTERITIS AND COLITIS 11/07/2018 DULCE CONDE DO Ot K58.9 IRRITABLE BOWEL SYNDROME WITHOUT DIARRHE 11/07/2018 DULCE CONDE DO Ot N20.0 CALCULUS OF KIDNEY 11/07/2018 DULCE CONDE DO Ot R10.31 RIGHT LOWER QUADRANT PAIN 11/07/2018 DULCE CONDE DO Ot Z87.19 PERSONAL HISTORY OF OTHER DISEASES OF TH 11/07/2018 DULCE CONDE DO Lexx Ot Z87.891 PERSONAL HISTORY OF NICOTINE DEPENDENCE 11/07/2018 ELTON TRENT DULCE Lexx Ot Z88.2 ALLERGY STATUS TO SULFONAMIDES STATUS 11/07/2018 ELTON TRENT DULCE Lexx Ot Z90.49 ACQUIRED ABSENCE OF OTHER SPECIFIED PART 11/07/2018 DULCE CONDE DO Ot Z98.890 OTHER SPECIFIED POSTPROCEDURAL STATES 11/07/2018 KRYSTYNA DEVLIN, MAKI Rodriguez Ot 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 11/07/2018 MAKI GREENWOOD MD Ot F32.9 MAJOR DEPRESSIVE DISORDER, SINGLE EPISOD 11/07/2018 MAKI GREENWOOD MD, Ot F41.9 ANXIETY DISORDER, UNSPECIFIED 11/07/2018 MAKI GREENWOOD MD Ot R10.31 RIGHT LOWER QUADRANT PAIN 11/07/2018 MAKI GREENWOOD MD Ot Z77.22 CNTCT W AND EXPSR TO ENVIRON TOBACCO SMO 11/07/2018 MAKI GREENWOOD MD Ot Z79.01 FDC (CURRENT) USE OF ANTICOAGULANT 11/07/2018 MAKI GREENWOOD MD Ot Z87.442 PERSONAL HISTORY OF URINARY CALCULI 11/07/2018 MAKI GREENWOOD MD Ot Z88.2 ALLERGY STATUS TO SULFONAMIDES STATUS 11/07/2018 MAKI GREENWOOD MD Ot Z90.49 ACQUIRED ABSENCE OF OTHER SPECIFIED PART 11/13/2018 ELTON TRENT DULCE Lexx Ot 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 11/13/2018 ELTON DODULCE Ot F32.9 MAJOR DEPRESSIVE DISORDER, SINGLE EPISOD 11/13/2018 ELTON TRENTDULCE Ot F41.9 ANXIETY DISORDER, UNSPECIFIED 11/13/2018 ELTON TRENTDULCE Ot K52.9 NONINFECTIVE GASTROENTERITIS AND COLITIS 11/13/2018 ELTON DULCE Ot K58.9 IRRITABLE BOWEL SYNDROME WITHOUT DIARRHE 11/13/2018 ELTON DULCE Ot N20.0 CALCULUS OF KIDNEY 11/13/2018 ELTON DULCE Ot R10.31 RIGHT LOWER QUADRANT PAIN 11/13/2018 ELTON DULCE Ot Z87.19 PERSONAL HISTORY OF OTHER DISEASES OF 11/13/2018 DULCE CONDE DO Ot Z87.891 PERSONAL HISTORY OF NICOTINE DEPENDENCE 11/13/2018 ELTON DULCE TRENT Ot Z88.2 ALLERGY STATUS TO SULFONAMIDES STATUS 11/13/2018 ELTON DULCE TRENT Ot Z90.49 ACQUIRED ABSENCE OF OTHER SPECIFIED PART 11/13/2018 ELTON DULCE TRENT Ot Z98.890 OTHER SPECIFIED POSTPROCEDURAL STATES 12/03/2018 ELTON DULCE TRENT Ot 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 12/03/2018 JUSTICE DULCE TRENT Ot F32.9 MAJOR DEPRESSIVE DISORDER, SINGLE EPISOD 12/03/2018 JUSTICE DULCE TRENT Ot F41.9 ANXIETY DISORDER, UNSPECIFIED 12/03/2018 ELTON DULCE TRENT Ot K52.9 NONINFECTIVE GASTROENTERITIS AND COLITIS 12/03/2018 ELTON DULCE TRENT Ot K58.9 IRRITABLE BOWEL SYNDROME WITHOUT DIARRHE 12/03/2018 JUSTICE DULCE TRENT Ot N20.0 CALCULUS OF KIDNEY 12/03/2018 JUSTICE DULCE TRENT Ot R10.31 RIGHT LOWER QUADRANT PAIN 12/03/2018 ELTON DULCE TRENT Ot Z87.19 PERSONAL HISTORY OF OTHER DISEASES OF TH 12/03/2018 DULCE CONDE DO Ot Z87.891 PERSONAL HISTORY OF NICOTINE DEPENDENCE 12/03/2018 ELTON DULCE TRENT Ot Z88.2 ALLERGY STATUS TO SULFONAMIDES STATUS 12/03/2018 ELTON DULCE TRENT Ot Z90.49 ACQUIRED ABSENCE OF OTHER SPECIFIED PART 12/03/2018 ELTON DULCE TRENT Ot Z98.890 OTHER SPECIFIED POSTPROCEDURAL STATES 01/13/2019 Clementine Cabezas W 569.3 HEMORRHAGE OF RECTUM AND ANUS 01/13/2019 Clementine Cabezas W K62.5 HEMORRHAGE OF ANUS AND RECTUM Procedures There is no data. Results Test Result Range TSH - 01/18/18 15:28 TSH 0.90 mIU/L NRG SUREPATH PAP RFX HPV mRNA E6/E7 - 03/01/18 18:35 CLINICAL INFORMATION: NRG LMP: NRG PREV. PAP: NRG PREV. BX: NRG SOURCE: NRG STATEMENT OF ADEQUACY: NRG INTERPRETATION/RESULT: NRG FENCE POST DRIVER: NRG REVIEW FENCE POST DRIVER: NRG COMMENT NRG CULTURE, GENITAL - 03/01/18 [...] Automated erythrocyte mean corpuscular hemoglobin concentration measurement (mass/volume) 34 g/dL 32-36 Automated erythrocyte distribution width ratio 14.4 % 10.0- 14.5 Automated blood platelet count (count/volume) 317 10*3/uL [...] Blood monocytes automated count (number/volume) 0.6 10*3 0.0- 1.0 Automated eosinophil count 0.1 10*3/uL 0.0-0.3 Automated blood basophil count (count/volume) 0.0 10*3/uL 0.0-0.1 Complete urinalysis with reflex to culture - 03/16/18 21:00 Urine color determination YELLOW NRG Urine clarity determination CLEAR NRG Urine pH measurement by test strip 5 5-9 Specific gravity of urine by test strip 1.030 1.016-1.022 Urine protein assay by test strip, semi-quantitative [...] sediment leukocyte count by microscopy (number/high power field) RARE NRG Bacteria detection in urine sediment [...] Serum or plasma aspartate aminotransferase measurement (enzymatic activity/volume) 26 U/L 5-34 Serum or plasma alanine aminotransferase measurement (enzymatic activity/volume) 30 U/L 0-55 Serum or plasma protein [...] Automated erythrocyte mean corpuscular hemoglobin concentration measurement (mass/volume) 34 g/dL 32-36 Automated erythrocyte distribution width ratio 14.5 % 10.0- 14.5 Automated blood platelet count (count/volume) 327 10*3/uL [...] Blood monocytes automated count (number/volume) 0.7 10*3 0.0- 1.0 Automated eosinophil count 0.2 10*3/uL 0.0-0.3 Automated [...] Serum or plasma aspartate aminotransferase measurement (enzymatic activity/volume) 32 U/L 5-34 Serum or plasma alanine aminotransferase measurement (enzymatic activity/volume) 36 U/L 0-55 Serum or plasma protein measurement (mass/volume) 7.5 g/dL 6.4-8.2 Serum or plasma albumin measurement (mass/volume) 4.2 g/dL 3.2-4.5 CALCIUM CORRECTED 9.4 mg/dL 8.5-10.1 SUREPATH PAP RFX HPV mRNA E6/E7 - 08/14/18 16:43 CLINICAL INFORMATION: NRG LMP: NRG PREV. PAP: NRG PREV. BX: NONE NRG SOURCE: Cervix NRG STATEMENT OF ADEQUACY: NRG INTERPRETATION/RESULT: NRG FENCE POST DRIVER: NRG COMMENT NRG Complete blood count (CBC) [...] Automated erythrocyte mean corpuscular hemoglobin concentration measurement (mass/volume) 33 g/dL 32-36 Automated erythrocyte distribution width ratio 13.8 % 10.0- 14.5 Automated blood platelet count (count/volume) 356 10*3/uL [...] Blood monocytes automated count (number/volume) 0.5 10*3 0.0- 1.0 Automated eosinophil count 0.3 10*3/uL 0.0-0.3 Automated blood basophil count (count/volume) 0.0 10*3/uL 0.0-0.1 Complete urinalysis with reflex to culture - 10/31/18 00:30 Urine color determination YELLOW NRG Urine clarity determination CLEAR NRG Urine pH measurement by test strip 6 5-9 Specific gravity of urine by test strip 1.025 1.016-1.022 Urine protein assay by test strip, semi-quantitative [...] sediment leukocyte count by microscopy (number/high power field) [HPF] NRG Bacteria detection in urine sediment [...] Blood lactic acid measurement (moles/volume) 1.26 mmol/L 0.50- 2.00 Fibrin D-dimer FEU measurement in platelet poor plasma (mass/volume) - 10/31/18 00:55 Fibrin D-dimer FEU measurement in platelet [...] Serum or plasma aspartate aminotransferase measurement (enzymatic activity/volume) 40 U/L 5-34 Serum or plasma alanine aminotransferase measurement (enzymatic activity/volume) 37 U/L 0-55 Serum or plasma protein measurement (mass/volume) 7.7 g/dL 6.4-8.2 Serum or plasma albumin measurement (mass/volume) 4.2 g/dL 3.2-4.5 CALCIUM CORRECTED 9.6 mg/dL 8.5-10.1 Magnesium - 10/31/18 00:55 Magnesium 1.9 mg/dL 1.8-2.4 Lipase - 10/31/18 00:55 Lipase 35 U/L 8-78 Serum or plasma C reactive protein measurement (mass/volume) - 10/31/18 00:55 Serum or plasma C reactive protein measurement (mass/volume) 0.94 mg/dL 0.00-0.50 Urine beta human chorionic gonadotropin (hCG) measurement - 11/03/18 02:50 Urine beta human chorionic gonadotropin (hCG) measurement NEGATIVE NEGATIVE Complete urinalysis with reflex to culture - 11/03/18 02:50 Urine color determination YELLOW NRG Urine clarity determination CLEAR NRG Urine pH measurement by test strip 6 5-9 Specific gravity of urine by test strip 1.015 1.016-1.022 Urine protein assay by test strip, semi-quantitative [...] sediment leukocyte count by microscopy (number/high power field) NONE NRG Bacteria detection in urine sediment [...] Automated erythrocyte mean corpuscular hemoglobin concentration measurement (mass/volume) 33 g/dL 32-36 Automated erythrocyte distribution width ratio 13.0 % 10.0- 14.5 Automated blood platelet count (count/volume) 277 10*3/uL [...] Blood monocytes automated count (number/volume) 0.6 10*3 0.0- 1.0 Automated eosinophil count 0.2 10*3/uL 0.0-0.3 Automated blood basophil count (count/volume) 0.0 10*3/uL 0.0-0.1 Fibrin D-dimer FEU measurement in platelet poor plasma (mass/volume) - 11/03/18 08:52 Fibrin D-dimer FEU measurement in platelet [...] Serum or plasma aspartate aminotransferase measurement (enzymatic activity/volume) 113 U/L 5-34 Serum or plasma alanine aminotransferase measurement (enzymatic activity/volume) 71 U/L 0-55 Serum or plasma protein measurement (mass/volume) 7.2 g/dL 6.4-8.2 Serum or plasma albumin measurement (mass/volume) 3.9 g/dL 3.2-4.5 CALCIUM CORRECTED 9.9 mg/dL 8.5-10.1 Lipase - 11/03/18 08:52 Lipase 21 U/L 8-78 CULTURE, VIRAL (HSV W/TYPING) - 12/19/18 20:36 SOURCE: MEGHAN-RECTAL LESION NRG HSV CULTURE: ISOLATED NRG HSV TYPE 2: ISOLATED NRG HSV TYPE 1: TNP NRG HSV 1/2 IGG,TYPE SPECIFIC AB HERPESELECT - 12/19/18 20:36 HSV 1 IGG, TYPE SPECIFIC AB <0.90 index NRG HSV 2 IGG, TYPE SPECIFIC AB 15.10 index NRG CBC with Auto Diff - 01/13/19 01:00 Baso% 0.10 % 0.00-2.50 Eos 0.2 K/uL 0.0-0.7 Eos% 2.1 % 0.0-7.0 Hct 37.9 % 36.0-46.0 Hgb 12.9 Result Verified by Repeat Analysis g/dL 13.0-15.0 Lym 2.91 K/uL 0.60-3.40 Lym% 38.4 % 10.0-50.0 MCH 32.2 pg 27.0-31.0 MCHC 34.0 g/dL 32.0-36.0 MCV 94.5 fL 80.0-97.0 Phelps% 6.9 % 0.0-12.0 MPV 9.3 fL 7.4-10.0 Yinka% 52.5 % 37.0-80.0 Plt 307 K/uL 150-400 RBC 4.01 M/uL 3.60-5.00 RDW 13.4 % 11.6-14.8 WBC 7.57 K/uL 5.00-10.00 Yinka 3.97 K/uL 2.00-6.90 Phelps 0.5 K/uL 0.0-0.9 Baso 0.0 K/uL 0.0-0.2 HEPATITIS PROFILE - 02/17/19 14:57 HEPATITIS A IGM NON-REACTIVE NON-REACTIVE HEPATITIS B SURFACE ANTIGEN NON-REACTIVE NON-REACTIVE HEPATITIS B CORE ANTIBODY (IGM) NON-REACTIVE NON-REACTIVE HEPATITIS C ANTIBODY NON-REACTIVE NON-REACTIVE SIGNAL TO CUT-OFF 0.01 <1.00 CBC - 02/22/19 11:57 WHITE BLOOD CELL COUNT 6.7 Thousand/uL 3.8-10.8 RED BLOOD CELL COUNT 4.30 Million/uL 3.80-5.10 HEMOGLOBIN 13.4 g/dL 11.7-15.5 HEMATOCRIT 41.8 % 35.0-45.0 MCV 97.2 fL 80.0-100.0 MCH 31.2 pg 27.0-33.0 MCHC 32.1 g/dL 32.0-36.0 RDW 13.5 % 11.0-15.0 PLATELET COUNT 309 Thousand/uL 140-400 MPV 10.1 fL 7.5-12.5 ABSOLUTE NEUTROPHILS 3712 cells/uL 0554-4176 ABSOLUTE LYMPHOCYTES 2285 cells/uL 850-3900 ABSOLUTE MONOCYTES 503 cells/uL 200-950 ABSOLUTE EOSINOPHILS 161 cells/uL 15-500 ABSOLUTE BASOPHILS 40 cells/uL 0-200 NEUTROPHILS 55.4 % NRG LYMPHOCYTES 34.1 % NRG MONOCYTES 7.5 % NRG EOSINOPHILS 2.4 % NRG BASOPHILS 0.6 % NRG Complete urinalysis with reflex to culture - 03/09/19 14:35 Urine color determination YELLOW NRG Urine clarity determination CLEAR NRG Urine pH measurement by test strip 6 5-9 Specific gravity of urine by test strip 1.015 1.016-1.022 Urine protein assay by test strip, semi-quantitative [...] NORMAL Urine leukocyte esterase detection by dipstick NEGATIVE NEGATIVE Automated urine sediment erythrocyte count by microscopy (number/high power field) NONE NRG Automated urine sediment leukocyte count by microscopy (number/high power field) NONE NRG Bacteria detection in urine sediment by light microscopy NEGATIVE NRG Squamous epithelial cells detection in urine sediment by light microscopy RARE NRG Crystals detection in urine sediment by light microscopy NONE NRG Casts detection in urine sediment by light microscopy NONE NRG Mucus detection in urine sediment by light microscopy NEGATIVE NRG Complete urinalysis with reflex to culture NO NRG Complete blood count (CBC) with automated white blood cell (WBC) differential - 03/09/19 15:20 Blood leukocytes automated count (number/volume) 8.4 10*3/uL 4.3-11.0 Blood erythrocytes automated count (number/volume) 4.26 10*6/uL 4.35-5.85 Venous blood hemoglobin measurement (mass/volume) 13.4 g/dL 11.5-16.0 Blood hematocrit (volume fraction) 40 % 35-52 Automated erythrocyte mean corpuscular volume 93 [foz_us] 80-99 Automated erythrocyte mean corpuscular hemoglobin (mass per erythrocyte) 31 pg 25-34 Automated erythrocyte mean corpuscular hemoglobin concentration measurement (mass/volume) 34 g/dL 32-36 Automated erythrocyte distribution width ratio 13.4 % 10.0- 14.5 Automated blood platelet count (count/volume) 312 10*3/uL 130-400 Automated blood platelet mean volume measurement 9.7 [foz_us] 7.4-10.4 Automated blood neutrophils/100 leukocytes 51 % 42-75 Automated blood lymphocytes/100 leukocytes 40 % 12-44 Blood monocytes/100 leukocytes 8 % 0-12 Automated blood eosinophils/100 leukocytes 1 % 0-10 Automated blood basophils/100 leukocytes 1 % 0-10 Blood neutrophils automated count (number/volume) 4.3 10*3 1.8-7.8 Blood lymphocytes automated count (number/volume) 3.3 10*3 1.0-4.0 Blood monocytes automated count (number/volume) 0.6 10*3 0.0- 1.0 Automated eosinophil count 0.1 10*3/uL 0.0-0.3 Automated blood basophil count (count/volume) 0.0 10*3/uL 0.0-0.1 Comprehensive metabolic panel - 03/09/19 15:20 Serum or plasma sodium measurement (moles/volume) 139 mmol/L 135-145 Serum or plasma potassium measurement (moles/volume) 3.6 mmol/L 3.6-5.0 Serum or plasma chloride measurement (moles/volume) 108 mmol/L 98-107 Carbon dioxide 19 mmol/L 21-32 Serum or plasma anion gap determination (moles/volume) 12 mmol/L 5-14 Serum or plasma urea nitrogen measurement (mass/volume) 9 mg/dL 7-18 Serum or plasma creatinine measurement (mass/volume) 0.81 mg/dL 0.60-1.30 Serum or plasma urea nitrogen/creatinine mass ratio 11 NRG Serum or plasma creatinine measurement with calculation of estimated glomerular filtration rate > NRG Serum or plasma glucose measurement (mass/volume) 87 mg/dL 70-105 Serum or plasma calcium measurement (mass/volume) 9.8 mg/dL 8.5-10.1 Serum or plasma total bilirubin measurement (mass/volume) 0.5 mg/dL 0.1-1.0 Serum or plasma alkaline phosphatase measurement (enzymatic activity/volume) 86 U/L 40-136 Serum or plasma aspartate aminotransferase measurement (enzymatic activity/volume) 20 U/L 5-34 Serum or plasma alanine aminotransferase measurement (enzymatic activity/volume) 30 U/L 0-55 Serum or plasma protein measurement (mass/volume) 7.5 g/dL 6.4-8.2 Serum or plasma albumin measurement (mass/volume) 4.2 g/dL 3.2-4.5 CALCIUM CORRECTED 9.6 mg/dL 8.5-10.1 Serum or plasma amylase measurement (enzymatic activity/volume) - 03/09/19 15:20 Serum or plasma amylase measurement (enzymatic activity/volume) 65 U/L 25-125 Lipase - 03/09/19 15:20 Lipase 34 U/L 8-78 Encounters ACCT No. Visit Date/Time Discharge Status Pt. Type Provider Facility Loc./Unit Complaint [id number] 03/06/2019 14:00:00 ACT Outpatient MANUEL EDMONDS [facility] [id number] 02/22/2019 10:40:00 Document Registration [id number] 02/17/2019 14:20:00 Document Registration [id number] 12/22/2018 14:20:00 Document Registration [id number] 12/19/2018 19:50:00 Document Registration [id number] 08/14/2018 14:00:00 Document Registration [id number] 03/01/2018 18:00:00 Document Registration [id number] 01/18/2018 15:00:00 Document Registration [id number] 11/03/2018 07:59:00 11/03/2018 11:46:00 DIS Emergency KRYSTYNA DEVLIN, MAKI Rodriguez [facility] ER SOB [id number] 11/03/2018 02:25:00 11/03/2018 05:08:00 DIS Emergency DULCE CONDE DO K [facility] ER LOWER BACK LOWER ABD PAIN [id number] 10/31/2018 08:19:00 10/31/2018 23:59:59 CLS Preadmit LAKHWINDER POSADAS APRN [facility] RAD ABD PAIN [id number] 10/30/2018 23:53:00 10/31/2018 03:23:00 DIS Emergency CAS DEVLIN, MEAGAN Rubio [facility] ER BACK PAIN,ABD PAIN [id number] 08/10/2018 01:44:00 08/10/2018 04:04:00 DIS Emergency KOSTA DUMAS MD [facility] ER DIARRHEA,RECTAL BLEEDING [id number] 06/30/2018 00:50:00 06/30/2018 01:26:00 DIS Emergency MEAGAN CARDOZO MD [facility] ER RT ARM [id number] INJURY [id number] 03/16/2018 20:28:00 03/16/2018 23:00:00 DIS Emergency SUDEEP MAY MD [facility] ER ABD ISSUES [id number] 03/09/2019 14:21:00 ACT Emergency DULCE CONDE DO [facility] ER LOWER R ABD PAIN [id number] 01/13/2019 00:13:00 01/13/2019 01:27:00 DIS Outpatient Arlene Cabezasissa [facility] ER [id number] 11/27/2013 15:01:43 11/27/2013 23:59:59 CLS Outpatient Dion Guevara
== END 2019-03-09 16:57 | disposition home or self-care (01) ==
LOC: EDUNIT# 14:20 → ER 14:21
DX: K52.9 Noninfective gastroenteritis and colitis, unspecified (principal); E66.01 Morbid (severe) obesity due to excess calories; F32.9 Major depressive disorder, single episode, unspecified; F41.9 Anxiety disorder, unspecified; D68.2 Hereditary deficiency of other clotting factors; Z79.01 Long term (current) use of anticoagulants; Z88.2 Allergy status to sulfonamides; Z87.891 Personal history of nicotine dependence; Z87.442 Personal history of urinary calculi; Z68.42 Body mass index [BMI] 45.0-49.9, adult
CPT/HCPCS: 36415; 74022; 74176; 80053; 81000; 82150; 83690; 84703; 85025; 96374

== ENCOUNTER → 2019-03-29 | Outpatient (CLI) | payer OTHER ==
[~2019-03-29] VITALS: Ht 172.7 cm; Wt 136.1 kg
[~2019-03-29] MED LIST changes: +APIX5TAB PO; +DESV100T PO; +ELUX100T PO; +HYDR-3781 PO; +MEDR150V IM; +METH4TAB PO; +NF-ESOM40C PO; +PANT40TA2 PO; +TRAZ-190 PO
== END | disposition home or self-care (01) ==
LOC: PREOP 06:14
PROVIDERS: ATTEND Surgery
DX: Z01.818 Encounter for other preprocedural examination (principal)